=== PATIENT | male | born 1940 | race Caucasian/White ===

== ENCOUNTER 2018-05-05 10:42 | Inpatient (IN) | payer OTHER, SELFPAY ==
[2018-05-05] MEDS ORDERED: IPRATROPIUM BROM 0.5MG/2.5ML ONE (11:34)
[2018-05-05] MEDS ORDERED: Levofloxacin 750mg IV 750 MG/150 ML BAG IV ONE (11:34)
[2018-05-05] MEDS ORDERED: METHYLPREDNISOLONE 40 MG INJ ONE (11:34)
[2018-05-05] MEDS ORDERED: ALBUTEROL 2.5 MG/3 ML NEB SOL ONE (11:34)
[2018-05-05 11:37] LABS: Protime INR 0.99
[2018-05-05 11:39] LABS: Absolute Lymphocytes (CBC) 0.7 K/uL (0.7-4.9); Absolute Monocytes 1.7 K/uL (0.1-1.3); Absolute Neutrophil 11.1 K/uL (1.8-8.0); Basophils % 0.4 % (0-1.3); Eosinophils % 0.2 % (0-4.4); Hematocrit 44.6 % (39.6-49.0); MCH 32.3 pg (27.0-35.0); MCV 95.5 fL (80-100); MPV 9.1 fL (7.6-11.3); Monocytes % 12.3 % (3.3-12.3); RBC Red Blood Cell Count 4.67 M/uL (4.33-5.43)
[2018-05-05 11:49] LABS: ALT/SGPT 15 U/L (12-78); AST/SGOT 12 U/L (15-37); Albumin 3.5 g/dL (3.4-5.0); Alkaline Phosphatase 133 U/L (45-117); BUN Blood Urea Nitrogen 22 mg/dL (7-18); Bicarbonate 29 mmol/L (21-32); Bilirubin Direct 0.2 mg/dL (0-0.2); Bilirubin Total 0.8 mg/dL (0.2-1.0); Glucose Level 108 mg/dL (74-106); NT PRO-BNP 544 pg/mL (<450); Potassium 3.2 mmol/L (3.5-5.1); Protein, Total 7.6 g/dL (6.4-8.2); Sodium Level 140 mmol/L (136-145); Troponin (Emerg Dept Use Only) < 0.02 ng/mL (0.0-0.045)
--- NOTE | 2018-05-05 12:05 | RAD REPORT ---
EXAM DESCRIPTION: [place] Single View05/05/2018 11:36 am CLINICAL HISTORY: Chest pain COMPARISON: none FINDINGS: The lungs are markedly hyperaerated. A left lower lobe consolidation The heart is normal size IMPRESSION: Marked COPD Left lower lobe consolidation consistent with pneumonia. This be followed until it has cleared help e xclude a post obstructive process/underlying mass
--- NOTE | 2018-05-05 12:25 | ER ---
Nurse's Notes [facility] Name: Kalpesh Nolen Age: 78 yrs Sex: Male : 1940 Arrival Date: 05/05/2018 Time: 10:51 Bed 20 Private MD: Diagnosis: Pneumonia due to other specified infectious organisms Presentation: 05/05 10:52 Presenting complaint: Patient states: He woke up at 7:00 this morning with left sided aj1 chest pain that radiates to his neck. Reports SOB, palpitations. Denies dizziness. Reports a productive cough for the past month and a half since he quit smoking. Transition of care: patient was not received from another setting of care. Onset of symptoms was May 05, 2018 at 07:00. Risk Assessment: Do you want to hurt yourself or someone else? Patient reports no desire to harm self or others. Initial Sepsis Screen: Does the patient meet any 2 criteria? No. Patient's initial sepsis screen is negative. Does the patient have a suspected source of infection? No. Patient's initial sepsis screen is negative. Care prior to arrival: None. 10:52 Method Of Arrival: Wheelchair aj1 10:52 Acuity: BOB 2 aj1 Triage Assessment: 10:54 General: Appears in no apparent distress. uncomfortable, Behavior is calm, cooperative, aj1 appropriate for age. Pain: Complains of pain in chest Pain radiates to neck Pain currently is 8 out of 10 on a pain scale. Neuro: Level of Consciousness is awake, alert, obeys commands. Cardiovascular: Patient's skin is warm and dry. Respiratory: Airway is patent Respiratory effort is even, unlabored, Respiratory pattern is regular, symmetrical. Historical: - Allergies: 10:54 No Known Allergies; aj1 - Home Meds: 10:54 None [Active]; aj1 - PMHx: 10:54 None; aj1 - PSHx: 10:54 None; aj1 - Immunization history:: Flu vaccine is not up to date. - Social history:: Smoking status: Patient uses tobacco products, smokes one pack cigarettes per day. States that he quit smoking a month and a half ago, Smoking status: Patient uses alcohol, Patient/guardian denies using street drugs, IV drugs, The patient lives with family. - Ebola Screening: : Patient denies travel to an Ebola-affected area in the 21 days before illness onset. - Family history:: not pertinent. - Hospitalizations: : No recent hospitalization is reported. Screenin:30 Abuse screen: Denies threats or abuse. Nutritional screening: No deficits noted. em Tuberculosis screening: No symptoms or risk factors identified. Fall Risk None identified. Assessment: 11:15 General: Appears uncomfortable, Behavior is calm, cooperative, Denies fever. Pain: em Complains of pain in anterior aspect of left shoulder and chest Pain currently is 8 out of 10 on a pain scale. Quality of pain is described as radiating, sharp, Pain began 3 hours ago. Pain: Pain radiates to back. Neuro: Level of Consciousness is awake, alert, obeys commands, Oriented to person, place, time, situation, Moves all extremities. Gait is steady, Speech is normal, Facial symmetry appears normal, Pupils are PERRLA. Cardiovascular: Capillary refill < 3 seconds Patient's skin is warm and dry. Rhythm is sinus tachycardia Chest pain is located in left anterior. Respiratory: Reports shortness of breath cough that is productive, pain with respiration Airway is patent Respiratory effort is even, unlabored, Respiratory pattern is regular, tachypnea Breath sounds with wheezes in left posterior lower lobe and right posterior lower lobe the patient has mild shortness of breath. GI: Abdomen is flat. : No signs and/or symptoms were reported regarding the genitourinary system. EENT: Denies nasal congestion. Derm: Skin is intact, is thin, Skin is pink, warm \T\ dry. Musculoskeletal: Capillary refill < 3 seconds, Range of motion: intact in all extremities. 11:30 General: The previous assessment is accurate, call light remains within reach. . ss 12:35 Reassessment: Patient appears in no apparent distress at this time. Patient and/or em family updated on plan of care and expected duration. Pain level reassessed. Patient is alert, oriented x 3, equal unlabored respirations, skin warm/dry/pink. SPO2 94% RA, placed on 2 L via NC, SPO2 100%. 13:30 Reassessment: Patient appears in no apparent distress at this time. Patient and/or em family updated on plan of care and expected duration. Pain level reassessed. Patient is alert, oriented x 3, equal unlabored respirations, skin warm/dry/pink. rates pain 5/10 Patient states feeling better. Patient states symptoms have improved. 14:19 Reassessment: Patient appears in no apparent distress at this time. Patient and/or em family updated on plan of care and expected duration. Pain level reassessed. Patient is alert, oriented x 3, equal unlabored respirations, skin warm/dry/pink. pending room assignment Patient states feeling better. Patient states symptoms have improved. 15:20 Reassessment: Patient appears in no apparent distress at this time. Patient and/or em family updated on plan of care and expected duration. Pain level reassessed. Patient is alert, oriented x 3, equal unlabored respirations, skin warm/dry/pink. attempted to give report to floor nurse, currently unavailable to give report Patient states feeling better. 16:00 Reassessment: Patient appears in no apparent distress at this time. Patient and/or em family updated on plan of care and expected duration. Pain level reassessed. Patient is alert, oriented x 3, equal unlabored respirations, skin warm/dry/pink. 16:07 Reassessment: Patient appears in no apparent distress at this time. room still being em cleaned, nurse request 30 minutes to send pt up. Vital Signs: 10:54 BP 140 / 73; Pulse 56; Resp 18; Temp 97.9; Pulse Ox 95% on R/A; Weight 47.63 kg (R); aj1 Height 6 ft. 1 in. (185.42 cm) (R); Pain 8/10; 11:30 BP 166 / 80; Pulse 108; Resp 24; Pulse Ox 97% on R/A; Pain 8/10; em 12:30 BP 126 / 87; Pulse 102; Resp 22; Pulse Ox 94% on R/A; em 13:30 BP 148 / 67; Pulse 91; Resp 18; Pulse Ox 99% on 2 lpm NC; Pain 5/10; em 14:30 BP 169 / 79; Pulse 96; Resp 20; Pulse Ox 99% on 2 lpm NC; em 15:23 BP 152 / 69; Pulse 91; Resp 18; Temp 99.3(O); Pulse Ox 100% on 2 lpm NC; Pain 4/10; em 16:02 BP 154 / 62; Pulse 101; Resp 18; Pulse Ox 99% on R/A; Pain 4/10; em 10:54 Body Mass Index 13.85 (47.63 kg, 185.42 cm) aj1 ED Course: 10:51 Patient arrived in ED. aj1 10:53 Triage completed. aj1 10:54 Arm band placed on. aj1 10:55 Patient placed in an exam room. aj1 10:59 Oliver Lee LVN is Primary Nurse. em 11:00 Carmelo Allen MD is Attending Physician. ma2 11:12 EKG done, by surfacing technician. reviewed by Carmelo Allen MD. vh 11:30 Patient maintains SpO2 saturation greater than 95% on room air. em 11:35 X-ray completed. Portable x-ray completed in exam room. Patient tolerated procedure ls3 well. 11:36 XRAY Chest (1 view) In Process Unspecified. EDMS 11:45 Patient has correct armband on for positive identification. Placed in gown. Bed in low em position. Call light in reach. monitoring engineer on. Pulse ox on. NIBP on. 11:45 Inserted saline lock: 20 gauge in right forearm, using aseptic technique. Blood em collected. 11:45 Initial lab(s) drawn, by me, sent to lab. First set of blood cultures drawn by me. em 12:24 Kulwinder Smith MD is Hospitalizing Provider. ma2 16:34 No provider procedures requiring assistance completed. Patient admitted, IV remains in em place. Administered Medications: 11:30 Not Given (Physician Discretion): Albuterol - atroVENT (3:1) (2.5 mg - 0.5 mg) 3 ml em Nebulizer once 11:31 Drug: Albuterol 2.5 mg Route: Inhalation; em 12:28 Follow up: Response: No adverse reaction; Marked relief of symptoms em 11:31 Drug: AtroVENT Aerosol 0.5 mg Route: Inhalation; em 12:29 Follow up: Response: No adverse reaction; Marked relief of symptoms em 11:47 Drug: MethylPrednisoLONE 40 mg Route: IVP; Site: right forearm; ss 12:28 Follow up: Response: No adverse reaction em 11:48 Drug: LevaQUIN 750 mg Volume: 150 ml; Route: IVPB; Infused Over: 90 mins; Site: right em forearm; 14:43 Follow up: Response: No adverse reaction; IV Status: Completed infusion; IV Intake: em 250ml 13:10 Drug: NS 0.9% 1000 ml Route: IV; Rate: 1 bolus; Site: right forearm; em 14:43 Follow up: IV Status: Completed infusion; IV Intake: 1000ml em 13:11 Drug: morphine 4 mg Route: IVP; Site: right forearm; ss 14:43 Follow up: Response: No adverse reaction; Pain is decreased em Intake: 14:43 IV: 250ml; Total: 250ml. em 14:43 IV: 1000ml; Total: 1250ml. em Outcome: 12:24 Decision to Hospitalize by Provider. ma2 16:07 Admitted to Tele accompanied by tech, family with patient, via stretcher, room 225, em with oxygen, with chart, Report called to HEMANT Connor 16:07 Condition: good 16:07 Instructed on the need for admit, Demonstrated understanding of instructions. 16:39 Patient left the ED. em Signatures: Dispatcher [employer] EDClaribel Womack RN RN aj1 Oliver Lee, DIRECTOR OF GLOBAL SALES DIRECTOR OF GLOBAL SALES Paige Villeda RN RN Sil Ulloa Carmelo Allen MD MD ma2 Nj Valenzuela ls3 Corrections: (The following items were deleted from the chart) 15:31 15:23 BP 152 / 69; Pulse 91bpm; Resp 18bpm; Pulse Ox 100% RA; Temp 99.3F Oral; Pain em 4/10; em
--- NOTE | 2018-05-05 12:26 | EDPHYS ---
Physician Documentation [facility] Name: Kalpesh Nolen Age: 78 yrs Sex: Male : 1940 Arrival Date: 05/05/2018 Time: 10:51 Bed 20 Private MD: ED Physician Carmelo Allen HPI: 05/05 11:20 This 78 yrs old Male presents to ER via Wheelchair with complaints of Chest Pain. ma2 11:20 The patient or guardian reports chest pain that is located primarily in the substernal ma2 area. Onset: gradually, 1 day(s) ago. Associated signs and symptoms: Pertinent positives: headache, nausea, shortness of breath, Pertinent negatives: abdominal pain, cough, dizziness, lower extremity swelling, near syncope, recent travel, syncope, vomiting. Duration: The patient or guardian reports a single episode. Severity of pain: At its worst the pain was moderate. The patient has not experienced similar symptoms in the past. Historical: - Allergies: 10:54 No Known Allergies; aj1 - Home Meds: 10:54 None [Active]; aj1 - PMHx: 10:54 None; aj1 - PSHx: 10:54 None; aj1 - Immunization history:: Flu vaccine is not up to date. - Social history:: Smoking status: Patient uses tobacco products, smokes one pack cigarettes per day. States that he quit smoking a month and a half ago, Smoking status: Patient uses alcohol, Patient/guardian denies using street drugs, IV drugs, The patient lives with family. - Ebola Screening: : Patient denies travel to an Ebola-affected area in the 21 days before illness onset. - Family history:: not pertinent. - Hospitalizations: : No recent hospitalization is reported. ROS: 11:20 Constitutional: Negative for fever, chills, and weight loss, Respiratory: Negative for ma2 shortness of breath, cough, wheezing, and pleuritic chest pain, Abdomen/GI: Negative for abdominal pain, nausea, diarrhea, and constipation, Skin: Negative for injury, rash, and discoloration, Neuro: Negative for headache, weakness, numbness, tingling, and seizure, Psych: Negative for depression, anxiety, suicide ideation, homicidal ideation, and hallucinations, Allergy/Immunology: Negative for hives, rash, and allergies, Hematologic/Lymphatic: Negative for swollen nodes, abnormal bleeding, and unusual bruising. 11:20 Cardiovascular: Positive for chest pain. 11:20 All other systems are negative. ma2 Exam: 11:20 Constitutional: This is a well developed, well nourished patient who is awake, alert, ma2 and in no acute distress. Chest/axilla: Normal chest wall appearance and motion. Nontender with no deformity. No lesions are appreciated. Cardiovascular: Regular rate and rhythm with a normal S1 and S2. No gallops, murmurs, or rubs. Normal PMI, no JVD. No pulse deficits. Respiratory: Lungs have equal breath sounds bilaterally, clear to auscultation and percussion. No rales, rhonchi or wheezes noted. No increased work of breathing, no retractions or nasal flaring. Abdomen/GI: Soft, non-tender, with normal bowel sounds. No distension or tympany. No guarding or rebound. No evidence of tenderness throughout. MS/ Extremity: Pulses equal, no cyanosis. Neurovascular intact. Full, normal range of motion. Neuro: Awake and alert, GCS 15, oriented to person, place, time, and situation. Cranial nerves II-XII grossly intact. Motor strength 5/5 in all extremities. Sensory grossly intact. Cerebellar exam normal. Normal gait. 11:20 Cardiovascular: Rate: tachycardic, Rhythm: irregularly irregular. 11:20 Respiratory: mild respiratory distress is noted, Respirations: Breath sounds: wheezing: expiratory that is mild. Vital Signs: 10:54 BP 140 / 73; Pulse 56; Resp 18; Temp 97.9; Pulse Ox 95% on R/A; Weight 47.63 kg (R); aj1 Height 6 ft. 1 in. (185.42 cm) (R); Pain 8/10; 11:30 BP 166 / 80; Pulse 108; Resp 24; Pulse Ox 97% on R/A; Pain 8/10; em 12:30 BP 126 / 87; Pulse 102; Resp 22; Pulse Ox 94% on R/A; em 13:30 BP 148 / 67; Pulse 91; Resp 18; Pulse Ox 99% on 2 lpm NC; Pain 5/10; em 14:30 BP 169 / 79; Pulse 96; Resp 20; Pulse Ox 99% on 2 lpm NC; em 15:23 BP 152 / 69; Pulse 91; Resp 18; Temp 99.3(O); Pulse Ox 100% on 2 lpm NC; Pain 4/10; em 16:02 BP 154 / 62; Pulse 101; Resp 18; Pulse Ox 99% on R/A; Pain 4/10; em 10:54 Body Mass Index 13.85 (47.63 kg, 185.42 cm) aj1 MDM: 11:00 Patient medically screened. ma2 11:20 Differential diagnosis: abnormal EKG, acute pericarditis, coronary artery disease ma2 Cholelithiasis costochondritis, gastritis, gastroesophageal reflux disease (GERD), pneumonia. HEART Score: History: Highly Suspicious (2), ECG: Age: > or = 65 years (2). The patient was given aspirin in the Emergency Department. MARILU Risk Score: 1 - Three or more CAD risk factors. 12:21 Data reviewed: vital signs, nurses notes, EMS record, assisted records, diagnostic ma2 data from outside facility, lab test result(s), radiologic studies. 12:23 Counseling: I had a detailed discussion with the patient and/or guardian regarding: the ma2 historical points, exam findings, and any diagnostic results supporting the discharge/admit diagnosis, the presence of at least one elevated blood pressure reading (>120/80) during this emergency department visit, the need for further work-up and treatment in the hospital. Response to treatment: the patient's symptoms have markedly improved after treatment. ED course: has pneumonia on cxr, has SIRS with hr of 105 and elevated wbc, will treat as cap, discussed with dr. demarco.. 05/05 11:00 Order name: Basic Metabolic Panel; Complete Time: 12:19 [facility] 05/05 11:00 Order name: CBC with Diff; Complete Time: 12:19 [facility] 05/05 11:00 Order name: LFT's; Complete Time: 12:19 [facility] 05/05 11:00 Order name: Magnesium; Complete Time: 12:19 [facility] 05/05 11:00 Order name: NT PRO-BNP; Complete Time: 12:19 [facility] 05/05 11:00 Order name: PT-INR; Complete Time: 12:19 [facility] 05/05 11:00 Order name: Troponin (emerg Dept Use Only); Complete Time: 12:19 [facility] 05/05 11:00 Order name: XRAY Chest (1 view); Complete Time: 12:19 [facility] 05/05 11:19 Order name: Blood Culture Adult (2) or2 05/05 12:25 Order name: Blood Culture Adult (2) or2 05/05 11:00 Order name: EKG; Complete Time: 11:01 [facility] 05/05 11:00 Order name: Cardiac monitoring; Complete Time: 11:21 [facility] 05/05 11:00 Order name: EKG - Nurse/Tech; Complete Time: 11:21 [facility] 05/05 11:00 Order name: IV Saline Lock; Complete Time: 11:21 [facility] 05/05 11:00 Order name: Labs collected and sent; Complete Time: 11:21 [facility] 05/05 11:00 Order name: O2 Per Protocol; Complete Time: 11:20 [facility] 05/05 11:00 Order name: O2 Sat Monitoring; Complete Time: 11:20 [facility] 05/05 12:54 Order name: Oxygen; Complete Time: 13:27 [email or web address] Administered Medications: 11:30 Not Given (Physician Discretion): Albuterol - atroVENT (3:1) (2.5 mg - 0.5 mg) 3 ml em Nebulizer once 11:31 Drug: Albuterol 2.5 mg Route: Inhalation; em 12:28 Follow up: Response: No adverse reaction; Marked relief of symptoms em 11:31 Drug: AtroVENT Aerosol 0.5 mg Route: Inhalation; em 12:29 Follow up: Response: No adverse reaction; Marked relief of symptoms em 11:47 Drug: MethylPrednisoLONE 40 mg Route: IVP; Site: right forearm; ss 12:28 Follow up: Response: No adverse reaction em 11:48 Drug: LevaQUIN 750 mg Volume: 150 ml; Route: IVPB; Infused Over: 90 mins; Site: right em forearm; 14:43 Follow up: Response: No adverse reaction; IV Status: Completed infusion; IV Intake: em 250ml 13:10 Drug: NS 0.9% 1000 ml Route: IV; Rate: 1 bolus; Site: right forearm; em 14:43 Follow up: IV Status: Completed infusion; IV Intake: 1000ml em 13:11 Drug: morphine 4 mg Route: IVP; Site: right forearm; ss 14:43 Follow up: Response: No adverse reaction; Pain is decreased em Disposition: 05/05/18 12:24 Hospitalization ordered by Kulwinder Demarco for Inpatient Admission. Preliminary diagnosis is Pneumonia due to other specified infectious organisms. - Bed requested for Telemetry/MedSurg (Inpatient). - Status is Inpatient Admission. em - Condition is Stable. - Problem is new. - Symptoms are unchanged. UTI on Admission? No Signatures: Dispatcher [employer] EDClaribel Womack RN RN aj1 Hubert Silva PA PA carmelom Oliver Lee, SUPERVISOR WOOL SHEARING SUPERVISOR WOOL SHEARING [facility] CenterPaige RN RN Carmelo Allen MD MD ma2 Janelle Shi Corrections: (The following items were deleted from the chart) 14:26 12:24 Hospitalization Ordered by Kulwinder Demarco MD for Inpatient Admission. Preliminary gm diagnosis is Pneumonia due to other specified infectious organisms. Bed requested for Telemetry/MedSurg (Inpatient). Status is Inpatient Admission. Condition is Stable. Problem is new. Symptoms are unchanged. UTI on Admission? No. ma2 16:39 14:26 05/05/2018 12:24 Hospitalization Ordered by Kulwinder Demarco MD for Inpatient em Admission. Preliminary diagnosis is Pneumonia due to other specified infectious organisms. Bed requested for Telemetry/MedSurg (Inpatient). Status is Inpatient Admission. Condition is Stable. Problem is new. Symptoms are unchanged. UTI on Admission? No. gm
--- NOTE | 2018-05-05 12:57 | EKG ---
Test Date: 2018-05-05 Test Time: 11:05:10 Weight Count Operator: JD MEASUREMENT RESULTS: Intervals: Rate: 106 CA: 132 QRSD: 84 QT: 354 QTc: 470 Colt: P: 92 CA: 132 QRS: -9 T: 75 INTERPRETIVE STATEMENTS: Sinus tachycardia with premature atrial complexes Otherwise normal ECG No previous ECG available for comparison Electronically Signed On 05-05-18 12:57:18 [employer]TER by Jamie Esteves
[2018-05-05] MEDS ORDERED: ONDANSETRON 4 MG/2 ML VIAL IV PRN (13:08)
[2018-05-05] MEDS ORDERED: ALBUTEROL 2.5 MG/3 ML NEB SOL NEB PRN (13:08)
[2018-05-05] MEDS ORDERED: ACETAMINOPHEN 500 MG TAB PO PRN (13:08)
[2018-05-05] MEDS ORDERED: NA CHLORIDE 0.9% 1,000 ML ONE (13:12)
[2018-05-05] MEDS ORDERED: MORPHINE 4 MG/ML SYR ONE (13:12)
[2018-05-05] MEDS: NA CHLORIDE 0.9% 1,000 ML IV SCH ×2 (17:46→20:47)
[2018-05-05 17:56] VITALS: BMI 14.3
[2018-05-05] MEDS ORDERED: POTASSIUM 25 MEQ EFFERV TAB PO ONE (18:00)
[2018-05-05] MEDS: ENOXAPARIN 40 MG/0.4 ML SQ SCH (18:32)
[2018-05-05] MEDS: CEFTRIAXONE/SWI 1gm 1 GM/10 ML SYR IV SCH (20:48)
[2018-05-05] MEDS ORDERED: INFLUENZA VACCINE (for 3y+) 0.5 ML DOSE IMVAC ONE (21:00)
[2018-05-05] MEDS ORDERED: PNEUMOCOCCAL VACCINE 0.5 ML IMVAC ONE (21:00)
--- NOTE | 2018-05-06 05:05 | P.HP ---
Certification for Inpatient Patient admitted to: Inpatient With expected LOS: >2 Midnights Practitioner: I am a practitioner with admitting privileges, knowledge of patient current condition, hospital course, and medical plan of care. Services: Services provided to patient in accordance with Admission requirements found in Title 42 Section 412.3 of the Code of Federal Regulations Patient History Date of Service: 05/05/18 Reason for admission: Pneumonia History of Present Illness: Mr Nolen is a 78-year-old male with no history of smoking, who quit about 2 weeks ago. Since so, he has had productive cough with thick creamy secretions. This morning, the patient woke up about 7 o'clock with left-sided chest pain, stabbing, radiating to the neck, intensity 7/10, associated with shortness of breath and palpitations. He denied fever or chills. In ER the patient was afebrile, O2 sat 95% on room. Lab work remarkable for leukocytosis, hypokalemia. Chest-x-ray consistent with left lower lobe pneumonia. Allergies No Known Allergies Allergy (Verified 05/05/18 17:36) Home Medications: Acetaminophen [Tylenol Extra Strength] 1 tab PO PRN PRN 05/05/18 - Past Medical/Surgical History Has patient received pneumonia vaccine in the past: No Diabetic: No -: COPD Past Surgical History: Reviewed- Non-Contributory - Family History Mother -: Heart disease, Cancer Father -: Heart disease, Cancer - Social History Smoking Status: Former smoker Alcohol use: No CD- Drugs: No Caffeine use: Yes Place of Residence: Home Review of Systems 10-point ROS is otherwise unremarkable Physical Examination - Vital Signs Temperature: 97.1 F Blood Pressure: 125/66 Pulse: 71 Respirations: 16 Pulse Ox (%): 16 - Physical Exam General: Alert, In no apparent distress HEENT: Atraumatic, PERRLA, Mucous membr. moist/pink, EOMI, Sclerae nonicteric Neck: Supple, 2+ carotid pulse no bruit, No LAD, Without JVD or thyroid abnormality Respiratory: Diminished, Crackles/rales (Left base crackles) Cardiovascular: Regular rate/rhythm, Normal S1 S2 Gastrointestinal: Normal bowel sounds, No tenderness Musculoskeletal: No tenderness Integumentary: No rashes Neurological: Normal speech, Normal strength at 5/5 x4 extr, Normal tone, Normal affect Lymphatics: No axilla or inguinal lymphadenopathy - Studies Laboratory Data (last 24 hrs) 05/05/18 11:10: PT 11.7, INR 0.99 05/05/18 11:10: WBC 13.5 H, Hgb 15.1, Hct 44.6, Plt Count 171 05/05/18 11:10: Sodium 140, Potassium 3.2 L, BUN 22 H, Creatinine 0.90, Glucose 108 H, Magnesium 2.0, Total Bilirubin 0.8, AST 12 L, ALT 15, Alkaline Phosphatase 133 H Assessment and Plan - Problems (Diagnosis) (1) COPD exacerbation Current Visit: Yes Status: Acute (2) Pneumonia Current Visit: Yes Status: Acute Qualifiers: Pneumonia type: due to unspecified organism Laterality: left Lung location: lower lobe of lung Qualified Code(s): J18.1 - Lobar pneumonia, unspecified organism (3) Hypokalemia Current Visit: Yes Status: Acute - Plan The patient will be admitted to the hospital due to COPD exacerbation secondary to left lower lobe pneumonia. Continue empiric treatment with Rocephin and azithromycin, IV fluids, breathing treatment and IV steroids. Consult analytical chemist for evaluation recommendation. - Advance Directives Does patient have a Living Will: No Does patient have a Durable POA for Healthcare: No - Code Status/Comfort Care Code Status Assessed: Yes Code Status: Full Code
[2018-05-06 05:45] LABS: Absolute Monocytes 1.7 K/uL (0.1-1.3); Absolute Neutrophil 8.3 K/uL (1.8-8.0); Basophils % 0.2 % (0-1.3); Eosinophils % 0.1 % (0-4.4); Hematocrit 39.9 % (39.6-49.0); Lymphocytes % 9.2 % (15.3-44.8); MCH 32.2 pg (27.0-35.0); MCV 96.6 fL (80-100); MPV 8.8 fL (7.6-11.3); Monocytes % 15.1 % (3.3-12.3); RBC Red Blood Cell Count 4.13 M/uL (4.33-5.43)
[2018-05-06 05:59] LABS: ALT/SGPT 13 U/L (12-78); AST/SGOT 10 U/L (15-37); Albumin 2.9 g/dL (3.4-5.0); Alkaline Phosphatase 105 U/L (45-117); BUN Blood Urea Nitrogen 21 mg/dL (7-18); Bicarbonate 32 mmol/L (21-32); Bilirubin Total 0.5 mg/dL (0.2-1.0); Glucose Level 113 mg/dL (74-106); Potassium 4.1 mmol/L (3.5-5.1); Protein, Total 6.4 g/dL (6.4-8.2); Sodium Level 143 mmol/L (136-145)
[2018-05-06 06:19] LABS: Urine Appearance CLEAR; Urine Blood NEGATIVE (NEG); Urine Color DK YELLOW; Urine Glucose NEGATIVE (NEG); Urine Protein 1+ (NEG); Urine Specific Gravity >=1.030 (1.005-1.030); Urine pH 5.5 (5.0-7.0)
[2018-05-06 06:26] LABS: Blood Morphology Comment NOT SEEN (NOT SEEN); Platelet Estimate ADEQ
[2018-05-06 06:26] LABS: Urine Microscopic Reflex ORDER UMIC
[2018-05-06 06:32] LABS: Urine Bilirubin NEGATIVE (NEG)
[2018-05-06 06:48] LABS: Urine Bacteria <20 /HPF (NONE SEEN); Urine Culture Reflex Order NOT NEEDED; Urine RBC <5 /HPF (NONE SEEN)
[2018-05-06 06:49] LABS: Urine Mucus 2+ /HPF (NONE SEEN)
[2018-05-06] MEDS: AZITHROMYCIN IV 500 MG in NA CHLORIDE 0.9% 250 ML IVPB SCH (09:29)
[2018-05-06] MEDS: METHYLPREDNISOLONE 40 MG INJ IV SCH ×2 (09:38→16:27)
[2018-05-06] MEDS ORDERED: IBUPROFEN 400 MG TAB PO PRN (09:41)
[2018-05-06] MEDS: CEFTRIAXONE/SWI 1gm 1 GM/10 ML SYR IV SCH ×2 (10:41→21:23)
[2018-05-06] MEDS: ENOXAPARIN 40 MG/0.4 ML SQ SCH (16:26)
[2018-05-06] MEDS: NA CHLORIDE 0.9% 1,000 ML IV SCH ×2 (16:28→21:22)
[2018-05-06] MEDS ORDERED: GUAIFENESIN/CODEINE 5ML UCUP PO PRN (17:22)
[2018-05-06] MEDS ORDERED: BENZONATATE 100 MG CAP PO PRN (17:22)
--- NOTE | 2018-05-06 17:24 | PN ---
Date of Progress Note: 05/06/2018 History: The patient seen and examined. Chart reviewed, and case discussed with RN. The patient st ates his breathing is better, however still requiring supplemental oxygen. The patient continued to have cough and congestion, bringing up significant amount of sputum. Review of Systems: Negative except as above. Medications: List reviewed. Physical Examination: Vital Signs: Temperature 97.9, heart rate 71, blood pressure 137/63, respirations 18, O2 100% on 2 L via nasal cannula. General: Awake, alert, oriented x3. Some mild distress. Ill-appearing elderly male, appears older than stated age. Cachectic. BMI is 14.3, frail. CV: S1, S2. Peripheral pulses are present. Respiratory: Diminished breath sounds at the bases. Gastrointestinal: Abdomen is soft, nontender, nondistended. Positive bowel sounds. Extremities: No clubbing, cyanosis, or edema. Neurologic: Nonfocal. Laboratory Data: Sodium 143, potassium 4.1, chloride 106, CO2 32, BUN 21, creatinine 0.8, glucose 11 3, calcium 8.5, albumin 2.9. WBC 11, H and H 13.3, 39.9, platelets 170, neutrophils 75%, 6% bands. Influenza screen is negative. Blood cultures are pending. Sputum culture is pending. Assessment And Plan: A 78-year-old male with: 1.Left lower lobe pneumonia. Continue IV antibiotics and follow up with cultures. Negative to date . The patient is still having significant amount of cough and sputum production. The patient is on s upplemental oxygen. We will consult Pulmonology. 2.Acute chronic obstructive pulmonary disease exacerbation. Continue breathing treatments and stero ids. The patient is still requiring supplemental oxygen. We will try to wean off as tolerated. The patient is not on home oxygen. 3.Hypokalemia, replaced. We will monitor. 4.Moderate protein-calorie malnutrition. The patient has a BMI of 14.3. Appears cachectic. We kyara l have dietary consultation, protein supplementation. 5.Gastrointestinal and deep venous thrombosis prophylaxis addressed. 6.History of tobacco abuse, quit 2 weeks ago. 7.Chronic chest pain, likely related to pneumonia, NSAIDs as needed. Plan: Continue monitoring for clinical improvement. Likely discharge in next 24-48 hours. /LAURA Voice ID: [id number] Report ID: [id number]
--- NOTE | 2018-05-06 17:42 | P.PN ---
Date of Service: 05/06/18 Called by nurse regarding patients change in cardiorespiratory status. Patient had sudden onset of coughing spell and became dyspenic. His HR became elevated and jumped into the 200s. EKG showed Afib w RVR. breathing treatment switched to xopenex, check magnesium , TSH. Switch to lovenox 1mg/kg q12hr and use lopressor for rate control. Cardiology consultation. ABG showed some hypoxemia. Placed back on O2. Continuous pulse oximetry. Cough suppressants. Keep as inpt.
[2018-05-06 17:43] LABS: Arterial Blood Carboxyhemoglob 1.4 % (0-1.5); Blood Gas Oxyhemoglobin 92.7 % (94-97); Blood O2 Saturation 94.6 % (92-98.5)
[2018-05-06] MEDS: METOPROLOL TARTRATE 5 MG/5 ML INJ IV PRN (17:50)
[2018-05-06] MEDS: LEVALBUTEROL 1.25 MG/3 ML NEB NEB SCH (20:00)
[2018-05-06] MEDS: IPRATROPIUM BROM 0.5MG/2.5ML NEB SCH (20:00)
[2018-05-06] MEDS: ENOXAPARIN 60 MG/0.6 ML SQ SCH (21:22)
[2018-05-07] MEDS: METHYLPREDNISOLONE 40 MG INJ IV SCH ×2 (00:38→09:11)
[2018-05-07] MEDS: LEVALBUTEROL 1.25 MG/3 ML NEB NEB SCH ×4 (01:10→21:03)
[2018-05-07] MEDS: IPRATROPIUM BROM 0.5MG/2.5ML NEB SCH ×4 (01:10→21:03)
[2018-05-07] MEDS: METOPROLOL TARTRATE 5 MG/5 ML INJ IV PRN (02:10)
[2018-05-07 04:36] LABS: Absolute Lymphocytes (CBC) 0.3 K/uL (0.7-4.9); Absolute Monocytes 0.7 K/uL (0.1-1.3); Absolute Neutrophil 8.9 K/uL (1.8-8.0); Hematocrit 37.7 % (39.6-49.0); Lymphocytes % 3.3 % (15.3-44.8); MCH 32.5 pg (27.0-35.0); MCV 98.3 fL (80-100); MPV 8.9 fL (7.6-11.3); Monocytes % 6.8 % (3.3-12.3); RBC Red Blood Cell Count 3.84 M/uL (4.33-5.43)
[2018-05-07 04:53] LABS: ALT/SGPT 14 U/L (12-78); AST/SGOT 10 U/L (15-37); Albumin 2.6 g/dL (3.4-5.0); Alkaline Phosphatase 90 U/L (45-117); BUN Blood Urea Nitrogen 27 mg/dL (7-18); Bicarbonate 31 mmol/L (21-32); Bilirubin Total 0.2 mg/dL (0.2-1.0); Glucose Level 114 mg/dL (74-106); Magnesium 2.3 mg/dL (1.8-2.4); Potassium 4.3 mmol/L (3.5-5.1); Protein, Total 5.9 g/dL (6.4-8.2); Sodium Level 149 mmol/L (136-145); Thyroid Stimulating Hormone 0.184 uIU/mL (0.360-3.740)
[2018-05-07] MEDS: CEFTRIAXONE/SWI 1gm 1 GM/10 ML SYR IV SCH (09:10)
[2018-05-07] MEDS: ENOXAPARIN 60 MG/0.6 ML SQ SCH ×2 (09:10→20:30)
[2018-05-07] MEDS: AZITHROMYCIN IV 500 MG in NA CHLORIDE 0.9% 250 ML IVPB SCH (09:42)
[2018-05-07] MEDS: ARFORMOTEROL TARTRATE 15 MCG/2 ML VIAL.NEB NEB SCH ×2 (10:45→21:03)
--- NOTE | 2018-05-07 11:06 | P.CNS ---
Date of Consult: 05/07/18 Chief Complaint: Left-sided chest pain shortness of breath History of Present Illness: Patient is 78 years of age he prides himself not visiting any doctors for the past 50 years patient quit smoking about a month ago admitted with a very localized left-sided chest pain radiating to his collar which is now resolved no prior history of cardiopulmonary problems he does have dyspnea on exertion for the past year or so associated with lower extremity edema no other medical history does not take any medications at home uses nonsteroidals p.r.n. Allergies No Known Allergies Allergy (Verified 05/05/18 17:36) Home Medications: Acetaminophen [Tylenol Extra Strength] 1 tab PO PRN PRN 05/05/18 - Past Medical/Surgical History Diabetic: No -: COPD - Family History Mother Medical History: Heart disease, Cancer Father Medical History: Heart disease, Cancer - Social History Smoking Status: Current every day smoker Alcohol use: No CD- Drugs: No Caffeine use: Yes Place of Residence: Home Review of Systems 10-point ROS is otherwise unremarkable Physical Examination Temp Pulse Resp BP Pulse Ox 97.8 F 72 18 121/59 L 94 05/07/18 08:00 05/07/18 08:00 05/07/18 08:00 05/07/18 08:00 05/07/18 08:00 General: Alert, Oriented x3 HEENT: Atraumatic Neck: Supple Respiratory: Clear to auscultation bilaterally, Diminished, Friction rub Cardiovascular: Regular rate/rhythm, Normal S1 S2 Gastrointestinal: Normal bowel sounds, Soft and benign - Problems (1) COPD exacerbation Current Visit: Yes Status: Acute Plan: Patient is 78 years of age former heavy smoker for 50 years quit about a month ago admitted with in left-sided atypical chest pain which is now resolved no prior history of cardiopulmonary problems on x-ray he is very hyperinflated lung zaidi most likely has underlying severe COPD with cor pulmonale patient was hypoxic hypercapnic mildly elevated white count patient has no fever minimal inflammatory changes at the left base room-air sats a satisfactory spinning frame changer to p.o. antibiotic patient does not qualify for home O2 change to p.o. levofloxacin and prednisone discharged home a tomorrow on levofloxacin for about 7 days low-dose prednisone 10 twice a day and he will need an bronchodilator consider Advair 251 puff twice a day for now follow up with me as an outpatient with outpatient pulmonary function testing patient's troponins are negative EKG on admission normal sinus to the (2) Atrial fibrillation Current Visit: Yes Status: Acute Plan: Patient has developed AFib he had a cardiac evaluation including an echo possibly a stress test he is high risk for coronary artery disease is currently back in sinus rhythm most likely transient AFib Qualifiers: Atrial fibrillation type: unspecified Qualified Code(s): I48.91 - Unspecified atrial fibrillation
[2018-05-07] MEDS ORDERED: IPRATROPIUM BROM 0.5MG/2.5ML NEB SCH (14:00)
--- NOTE | 2018-05-07 14:38 | P.PN ---
Subjective Date of Service: 05/07/18 Chief Complaint: Left-sided chest pain shortness of breath Subjective: Improving (Patient seen and examined. Chart reviewed and case discussed w RN and Dr. Pedro. Back in sinus rhytm.) Review of Systems 10-point ROS is otherwise unremarkable Respiratory: Shortness of Breath, As per HPI Physical Examination - Vital Signs Temperature: 98.5 F Blood Pressure: 105/51 Pulse: 84 Respirations: 18 Pulse Ox (%): 94 - Physical Exam General: Alert, In no apparent distress, Oriented x3, Other (cacechtic, elderly , ) HEENT: Atraumatic, PERRLA, EOMI Neck: Supple, JVD not distended Respiratory: Diminished, Expiratory wheezes Cardiovascular: No edema, Normal pulses, Regular rate/rhythm, Normal S1 S2 Gastrointestinal: Normal bowel sounds, Soft and benign, Non-distended, No tenderness Musculoskeletal: No clubbing, No tenderness Integumentary: No rashes, No erythema Neurological: Normal speech, Normal strength at 5/5 x4 extr, Normal tone, Normal affect - Studies Laboratory Last Values WBC 9.9 K/uL (4.3-10.9) 05/07/18 04:14 RBC 3.84 M/uL (4.33-5.43) L 05/07/18 04:14 Hgb 12.5 g/dL (13.6-17.9) L 05/07/18 04:14 Hct 37.7 % (39.6-49.0) L 05/07/18 04:14 MCV 98.3 fL (80-100) 05/07/18 04:14 MCH 32.5 pg (27.0-35.0) 05/07/18 04:14 MCHC 33.1 g/dL (32.0-36.0) 05/07/18 04:14 RDW 14.7 % (12.1-15.2) 05/07/18 04:14 Plt Count 176 K/uL (152-406) 05/07/18 04:14 MPV 8.9 fL (7.6-11.3) 05/07/18 04:14 Neutrophils % 89.9 % (41.7-73.7) H 05/07/18 04:14 Lymphocytes % 3.3 % (15.3-44.8) L 05/07/18 04:14 Monocytes % 6.8 % (3.3-12.3) 05/07/18 04:14 Eosinophils % 0.0 % (0-4.4) 05/07/18 04:14 Basophils % 0.0 % (0-1.3) 05/07/18 04:14 Absolute Neutrophils 8.9 K/uL (1.8-8.0) H 05/07/18 04:14 Segmented Neutrophils 71 % (40-80) 05/06/18 05:11 Band Neutrophils 6 % (0-1) H 05/06/18 05:11 Absolute Lymphocytes 0.3 K/uL (0.7-4.9) L 05/07/18 04:14 Lymphocytes 11 % (15-42) L 05/06/18 05:11 Monocytes 12 % (0-10) H 05/06/18 05:11 Absolute Monocytes 0.7 K/uL (0.1-1.3) 05/07/18 04:14 Absolute Eosinophils 0.0 K/uL (0-0.5) 05/07/18 04:14 Absolute Basophils 0.0 K/uL (0-0.5) 05/07/18 04:14 Morphology Comment Not seen (NOT SEEN) 05/06/18 05:11 PT 11.7 SECONDS (9.5-12.5) 05/05/18 11:10 INR 0.99 05/05/18 11:10 pH 7.39 (7.35-7.45) 05/06/18 17:32 pCO2 49.2 mmHG (35-45) H 05/06/18 17:32 pO2 68.2 mmHG (75-100) L 05/06/18 17:32 HCO3 29.4 mmol/L (22-28) H 05/06/18 17:32 Base Excess 4.7 mmol/L 05/06/18 17:32 Oxyhemoglobin 92.7 % (94-97) L 05/06/18 17:32 ABG O2 Sat (Measured) 94.6 % (92-98.5) 05/06/18 17:32 ABG Carboxyhemoglobin 1.4 % (0-1.5) 05/06/18 17:32 ABG Methemoglobin 0.6 % (0-1.5) 05/06/18 17:32 Other Total Hgb 13.5 g/dl (12-18) 05/06/18 17:32 Inspired O2 21.0 % 05/06/18 17:32 Sodium 149 mmol/L (136-145) H 05/07/18 04:14 Potassium 4.3 mmol/L (3.5-5.1) 05/07/18 04:14 Chloride 113 mmol/L (98-107) H 05/07/18 04:14 Carbon Dioxide 31 mmol/L (21-32) 05/07/18 04:14 BUN 27 mg/dL (7-18) H 05/07/18 04:14 Creatinine 0.80 mg/dL (0.55-1.3) 05/07/18 04:14 Estimated GFR > 90 mL/min (=/>90) 05/07/18 04:14 Glucose 114 mg/dL (74-106) H 05/07/18 04:14 Calcium 8.2 mg/dL (8.5-10.1) L 05/07/18 04:14 Magnesium 2.3 mg/dL (1.8-2.4) 05/07/18 04:14 Total Bilirubin 0.2 mg/dL (0.2-1.0) 05/07/18 04:14 Direct Bilirubin 0.2 mg/dL (0-0.2) 05/05/18 11:10 AST 10 U/L (15-37) L 05/07/18 04:14 ALT 14 U/L (12-78) 05/07/18 04:14 Alkaline Phosphatase 90 U/L (45-117) 05/07/18 04:14 Rapid Troponin I < 0.02 ng/mL (0.0-0.045) 05/05/18 11:10 NT-Pro-B Natriuret Pep 544 pg/mL (<450) H 05/05/18 11:10 Serum Total Protein 5.9 g/dL (6.4-8.2) L 05/07/18 04:14 Albumin 2.6 g/dL (3.4-5.0) L 05/07/18 04:14 Globulin 3.3 g/dL (2.3-3.5) 05/07/18 04:14 Albumin/Globulin Ratio 0.8 (1.1-1.8) L 05/07/18 04:14 TSH 0.184 uIU/mL (0.360-3.740) L 05/07/18 04:14 Urine Color Dk yellow 05/06/18 05:52 Urine Appearance Clear 05/06/18 05:52 Urine pH 5.5 (5.0-7.0) 05/06/18 05:52 Ur Specific [place] >=1.030 (1.005-1.030) 05/06/18 05:52 Urine Ketones Negative (NEG) 05/06/18 05:52 Urine Blood Negative (NEG) 05/06/18 05:52 Urine Nitrite Negative (NEG) 05/06/18 05:52 Urine Bilirubin Negative (NEG) 05/06/18 05:52 Urine Urobilinogen 1.0 mg/dL (0.2-1.0) 05/06/18 05:52 Ur Leukocyte Esterase Negative (NEG) 05/06/18 05:52 Urine RBC <5 /HPF (NONE SEEN) 05/06/18 05:52 Urine WBC <5 /HPF (<5) 05/06/18 05:52 Ur Squamous Epith Cells <5 /HPF (NONE SEEN) 05/06/18 05:52 Urine Bacteria <20 /HPF (NONE SEEN) 05/06/18 05:52 Urine Mucus 2+ /HPF (NONE SEEN) 05/06/18 05:52 Urine Culture Reflexed Not needed 05/06/18 05:52 Urine Glucose Negative (NEG) 05/06/18 05:52 Urine Total Protein 1+ (NEG) H 05/06/18 05:52 Medications List Reviewed: Yes Assessment And Plan - Current Problems (Diagnosis) (1) Pneumonia Current Visit: Yes Status: Acute Qualifiers: Pneumonia type: due to unspecified organism Laterality: left Lung location: lower lobe of lung Qualified Code(s): J18.1 - Lobar pneumonia, unspecified organism (2) Atrial fibrillation Current Visit: Yes Status: Acute Qualifiers: Atrial fibrillation type: paroxysmal Qualified Code(s): I48.0 - Paroxysmal atrial fibrillation (3) COPD exacerbation Current Visit: Yes Status: Acute (4) Hypokalemia Current Visit: Yes Status: Acute (5) Failure to thrive Current Visit: Yes Status: Acute Qualifiers: Failure to thrive age range: in adult Qualified Code(s): R62.7 - Adult failure to thrive - Plan Cont nebs, steroids Appreciate Dr. Zuleta input Patient back in sinus rhythm. Treatment plan updated. DC in am Discharge Plan: Home Plan to discharge in: 24 Hours - Code Status/Comfort Care Code Status Assessed: Yes
--- NOTE | 2018-05-07 16:25 | CON ---
Reason For Consult: AFib. History Of Present Illness: Mr. Nolen is a gentleman, who developed signs and symptoms of pneumonia. He has been in our hospital since the . He has a left lower lobe pneumonia. The radiologist have cautioned that there could be a mass and recommended followup until total clearance of the pneumonia to make sure it is not a postobstructive pneumonia. The patient has been in normal sinus rhythm, and last night, went into atrial fib for perhaps an hour or so. The patient did not seem to be bothered too much, although his heart rate went as high as 153 at one point. He is in normal rhythm today. The patient has no history of heart disease. He is proud of the fact he does not take any medications and has not been hospitalized ever. While in the hospital , he has received arformoterol, Tessalon Perles, Lovenox 50 every 12 hours, guaifenesin with codeine, ipratropium, Xopenex, levofloxacin, metoprolol, saline , Zofran, and prednisone. He was not taking any prescription medicines as an outpatient. He was a cigarette smoker, but quit fairly recently. Never had a diagnosis of diabetes, hypertension, heart disease, vascular disease, or AFib in the past. Physical Examination: General: He is 6 feet and 1 inch, 108 pounds, almost to the point of emaciation. HEENT: Unremarkable. Lungs: Reveal no normal breath sounds. All the breath sounds are purely bronchial. There is some wheezing, more on the left than the right. HEENT: Unremarkable. Heart: Regular rate and rhythm. The only evidence we have of AFib is on rhythm strips. There is no 12-lead EKG showing it. Impression: The patient should stay on chronic anticoagulation. For now, enoxaparin will do. He should probably be on long-term anticoagulation with Eliquis or Xarelto at the time of discharge. Because he only had atrial fibrillation while he was getting albuterol breathing treatment, we could just see if he has any more atrial fibrillation before actually starting an antiarrhythmic drug. I think any of the beta blockers be likely to upset his chronic obstructive pulmonary disease, so I would not want to take that particular direction. If his atrial fibrillation is recurrent, I would probably give him Multaq 400 mg twice a day and that is a drug that can easily be started as an outpatient. I would not recommend treatment with Rythmol or flecainide or Betapace. Thank you very much for your kind referral of Mr. Nolen. I will follow him with you. ZAIN Voice ID: [id number] Report ID: [id number] PETTY
[2018-05-07] MEDS: METOPROLOL TAR 25 MG TAB PO SCH (17:45)
[2018-05-07] MEDS: predniSONE 20 MG TAB PO SCH (20:30)
[2018-05-08] MEDS: IPRATROPIUM BROM 0.5MG/2.5ML NEB SCH ×2 (01:49→08:00)
[2018-05-08] MEDS: LEVALBUTEROL 1.25 MG/3 ML NEB NEB SCH ×2 (01:49→08:00)
[2018-05-08] MEDS: METOPROLOL TAR 25 MG TAB PO SCH (05:45)
[2018-05-08 06:36] LABS: Absolute Lymphocytes (CBC) 0.8 K/uL (0.7-4.9); Absolute Monocytes 0.9 K/uL (0.1-1.3); Basophils % 0.1 % (0-1.3); Hematocrit 35.2 % (39.6-49.0); MCH 31.9 pg (27.0-35.0); MPV 8.8 fL (7.6-11.3); Monocytes % 7.4 % (3.3-12.3); RBC Red Blood Cell Count 3.63 M/uL (4.33-5.43)
[2018-05-08 06:41] LABS: ALT/SGPT 14 U/L (12-78); AST/SGOT 10 U/L (15-37); Albumin 2.5 g/dL (3.4-5.0); Alkaline Phosphatase 79 U/L (45-117); BUN Blood Urea Nitrogen 23 mg/dL (7-18); Bicarbonate 30 mmol/L (21-32); Bilirubin Total 0.3 mg/dL (0.2-1.0); Glucose Level 99 mg/dL (74-106); Protein, Total 5.4 g/dL (6.4-8.2); Sodium Level 150 mmol/L (136-145)
[2018-05-08] MEDS: ARFORMOTEROL TARTRATE 15 MCG/2 ML VIAL.NEB NEB SCH (08:00)
[2018-05-08 08:07] LABS: Blood Morphology Comment NOT SEEN (NOT SEEN); Platelet Estimate ADEQ; Urine White Blood Cell Casts OK
[2018-05-08 08:12] VITALS: O2SAT 93
--- NOTE | 2018-05-08 08:30 | EKG ---
Test Date: 2018-05-07 Test Time: 07:55:05 Tacking Stitch Remover: SHER MEASUREMENT RESULTS: Intervals: Rate: 69 FL: 102 QRSD: 82 QT: 376 QTc: 402 [place]: P: 81 FL: 102 QRS: -29 T: 62 INTERPRETIVE STATEMENTS: Sinus rhythm with short FL Low voltage QRS Borderline ECG Compared to ECG 05/06/2018 17:20:58 Short FL interval now present Low QRS voltage now present Atrial fibrillation no longer present Ventricular premature complex(es) no longer present Right-axis deviation no longer present Electronically Signed On 05-08-18 08:30:20 STEEL DIE PRESS SET UP OPERATOR by Jamie Esteves
--- NOTE | 2018-05-08 08:30 | EKG ---
Test Date: 2018-05-06 Test Time: 17:20:58 Rolled Glass Crosscutter: LEILA MEASUREMENT RESULTS: Intervals: Rate: 142 PA: QRSD: 84 QT: 308 QTc: 473 [place]: P: PA: QRS: 107 T: 42 INTERPRETIVE STATEMENTS: Atrial fibrillation with rapid ventricular response with premature ventricular or aberrantly conducted complexes Rightward axis RSR' or QR pattern in V1 suggests right ventricular conduction delay Abnormal ECG Compared to ECG 05/05/2018 11:05:10 Ventricular premature complex(es) now present Right-axis deviation now present RSR' in V1 or V2 now present Sinus tachycardia no longer present Atrial premature complex(es) no longer present Electronically Signed On 05-08-18 08:30:28 MINE ANALYST by Jamie Esteves
[2018-05-08] MEDS ORDERED: levoFLOXacin 500 MG TAB PO SCH (09:00)
[2018-05-08] MEDS: predniSONE 20 MG TAB PO SCH (09:45)
[2018-05-08] MEDS: ENOXAPARIN 60 MG/0.6 ML SQ SCH (09:45)
[2018-05-08 10:26] VITALS: BP 147/70; TEMP 97.9
--- NOTE | 2018-05-08 13:32 | P.DS ---
Admission Date: 05/07/18 Discharge Date: 05/08/18 Disposition: ROUTINE DISCHARGE Discharge Condition: GOOD Reason for Admission: Left-sided chest pain shortness of breath Consultations: Cardiology, Dr. Esteves Pulmonology Dr. Pedro Brief History of Present Illness: Mr Nolen is a 78-year-old male with no history of smoking, who quit about 2 weeks ago. Since so, he has had productive cough with thick creamy secretions. This morning, the patient woke up about 7 o'clock with left-sided chest pain, stabbing, radiating to the neck, intensity 7/10, associated with shortness of breath and palpitations. He denied fever or chills. In ER the patient was afebrile, O2 sat 95% on room. Lab work remarkable for leukocytosis, hypokalemia. Chest-x-ray consistent with left lower lobe pneumonia. Hospital Course: Patient was admitted to the hospital for left lower lobe pneumonia and subsequent COPD exacerbation. He was treated with nebulizer treatments, steroids and IV antibiotics. He did have an episode of atrial fibrillation after albuterol. His breathing treatments were changed to Xopenex and he converted back to normal sinus rhythm. Cardiology was consulted. No medication changes noted at this time. At the time of my exam, patient was alert oriented x3, satting 92% plus on room air, in no acute distress and his breathing was back to baseline. He was tolerating a regular diet, he denies any chest pain, shortness of breath at this time, headache, dizziness or palpitations. His diagnosis was explained, all questions were answered and patient verbalized understanding of treatment plan and agreed with it. He was encouraged to follow up with his primary care physician. List primary care physicians was provided to him He was discharged to complete a course of Levaquin, low-dose steroids and Advair. Vital Signs/Physical Exam: Temp Pulse Resp BP Pulse Ox 97.9 F 75 18 147/70 H 94 05/08/18 08:00 05/08/18 08:00 05/08/18 08:00 05/08/18 08:00 05/08/18 08:00 General: Alert, In no apparent distress, Oriented x3 HEENT: Atraumatic, PERRLA, EOMI Neck: Supple, JVD not distended Respiratory: Clear to auscultation bilaterally, Normal air movement Cardiovascular: Regular rate/rhythm, Normal S1 S2 Gastrointestinal: Normal bowel sounds, No tenderness Musculoskeletal: No tenderness Integumentary: No rashes Neurological: Normal speech, Normal tone, Normal affect Lymphatics: No axilla or inguinal lymphadenopathy Laboratory Data at Discharge: WBC 11.7 K/uL (4.3-10.9) H D 05/08/18 06:11 Hgb 11.6 g/dL (13.6-17.9) L 05/08/18 06:11 Hct 35.2 % (39.6-49.0) L 05/08/18 06:11 Plt Count 218 K/uL (152-406) D 05/08/18 06:11 PT 11.7 SECONDS (9.5-12.5) 05/05/18 11:10 INR 0.99 05/05/18 11:10 Sodium 150 mmol/L (136-145) H 05/08/18 06:11 Potassium 4.0 mmol/L (3.5-5.1) 05/08/18 06:11 BUN 23 mg/dL (7-18) H 05/08/18 06:11 Creatinine 0.70 mg/dL (0.55-1.3) 05/08/18 06:11 Glucose 99 mg/dL (74-106) 05/08/18 06:11 Magnesium 2.3 mg/dL (1.8-2.4) 05/07/18 04:14 Total Bilirubin 0.3 mg/dL (0.2-1.0) 05/08/18 06:11 AST 10 U/L (15-37) L 05/08/18 06:11 ALT 14 U/L (12-78) 05/08/18 06:11 Alkaline Phosphatase 79 U/L (45-117) 05/08/18 06:11 Home Medications: Acetaminophen [Tylenol Extra Strength] 1 tab PO PRN PRN 05/05/18 Fluticasone/Salmeterol [Advair Hfa 230-21 Mcg Inhaler] 12 gm IH BID #1 aer.w.adap 05/08/18 levoFLOXacin [Levaquin*] 500 mg PO DAILY #6 tab 05/08/18 predniSONE [Deltasone*] 10 mg PO BID #14 tab 05/08/18 New Medications: Fluticasone/Salmeterol [Advair Hfa 230-21 Mcg Inhaler] 12 gm IH BID #1 aer.w.adap levoFLOXacin [Levaquin*] 500 mg PO DAILY #6 tab predniSONE [Deltasone*] 10 mg PO BID #14 tab Patient Discharge Instructions: Please follow up with the primary care physician in 1 week. Please follow up with pulmonology, information provided. Please follow up with Cardiology, information provided. New medications sent to pharmacy:1) Levaquin for 6 days, this is the antibiotic to help with the pneumonia. 2) prednisone 10 mg twice a day for 7 days. This is a steroid medication to help with her breathing. 3) Advair, this is an inhaler to help with the breathing. Diet: AHA Activity: Ad cade Followup: Juan Pedro MD [ACTIVE - CAN ADMIT] - aJmie Esteves MD [ACTIVE - CAN ADMIT] - Physician Review: Patient Assessed, Agree with Above Assessment and Plan Time spent managing pt's care (in minutes): 45
== END 2018-05-08 14:15 | disposition home or self-care (01) | DRG 190 ==
LOC: ER 10:42 → ERHOLD 12:26 → INTOOBSV 12:26 → 2ND 16:34 → OBSVTOIN 05-07 18:51
PROVIDERS: ADMIT Family Medicine; ATTEND Internal Medicine
DX: J44.0 Chronic obstructive pulmonary disease with (acute) lower respiratory infection (principal); J18.9 Pneumonia, unspecified organism; E44.0 Moderate protein-calorie malnutrition; Z68.1 Body mass index [BMI] 19.9 or less, adult; J44.1 Chronic obstructive pulmonary disease with (acute) exacerbation; E87.6 Hypokalemia; Z87.891 Personal history of nicotine dependence; I48.91 Unspecified atrial fibrillation; R09.02 Hypoxemia; R62.7 Adult failure to thrive; Z23 Encounter for immunization
CPT/HCPCS: 36415; 71045; 80048; 80053; 80076; 81003; 81015; 82805; 83735; 83880; 84132; 84443; 84484; 85025; 85610; 87040; 87070; 87205; 87804; 90670; 93005; 94640; 94760; 96365; 96366; 96375; 99285; G0008; G0009; G0378; J0456; J0696; J1650; J2920; J7030; J7512; J7605; Q2035

== ENCOUNTER 2020-12-17 21:31 | Inpatient (IN) | payer OTHER, SELFPAY ==
[2020-12-17 22:05] LABS: Absolute Lymphocytes (CBC) 1.2 K/uL (0.7-4.9); Basophils % 0.2 % (0-1.3); Hematocrit 41.6 % (39.6-49.0); Lymphocytes % 6.7 % (15.3-44.8); MPV 9.2 fL (7.6-11.3); RBC Red Blood Cell Count 4.46 M/uL (4.33-5.43)
[2020-12-17 22:15] LABS: Protime INR 1.17
[2020-12-17] MEDS ORDERED: Levofloxacin 750mg IV 750 MG/150 ML BAG IV ONE (22:19)
[2020-12-17] MEDS ORDERED: Magnesium Sulfate 2gm IVPB 2 G/50 ML BAG IV ONE (22:19)
[2020-12-17 22:34] LABS: Albumin 3.5 g/dL (3.4-5.0); Bilirubin Direct 0.5 mg/dL (0-0.2); Bilirubin Total 1.3 mg/dL (0.2-1.0); Magnesium 2.1 mg/dL (1.8-2.4); Potassium 4.5 mmol/L (3.5-5.1); Protein, Total 7.4 g/dL (6.4-8.2); Troponin (Emerg Dept Use Only) 0.07 ng/mL (0.0-0.045)
[2020-12-17 22:37] LABS: Arterial Blood Carboxyhemoglob 1.8 % (0-1.5); Blood Gas Oxyhemoglobin 96.6 % (94-97); Blood O2 Saturation 99.3 % (92-98.5)
[2020-12-17] MEDS ORDERED: LORazepam 2 MG/ML VIAL ONE (22:42)
--- NOTE | 2020-12-17 23:19 | ER ---
Nurse's Notes [facility] [place] Name: Kalpesh Nolen Age: 80 yrs Sex: Male : 1940 Arrival Date: 12/17/2020 Time: 21:33 Bed 2 Private MD: Diagnosis: Pneumonia due to other specified bacteria;Sepsis, unspecified organism;COPD/ Chronic obstructive pulmonary disease with (acute) exacerbation Presentation: 12/17 21:30 Chief complaint: EMS states: Pt is reporting severe shortness of breath. 92% on RA. jb4 100% on NRB mask. Unable to tolerate C-pap. Given 125 of solu-medrol via 20g in the LAC. 21:30 Coronavirus screen: Client denies travel out of the [place] in the last 14 days. Client jb4 presents with at least one sign or symptom that may indicate coronavirus-19. Provider contacted for isolation considerations. Ebola Screen: No symptoms or risks identified at this time. Initial Sepsis Screen: Does the patient meet any 2 criteria? RR > 20 per min. HR > 90 bpm. Yes Does the patient have a suspected source of infection? No. Patient's initial sepsis screen is negative. Risk Assessment: Do you want to hurt yourself or someone else? Patient reports no desire to harm self or others. Onset of symptoms was December 17, 2020. Transition of care: patient was not received from another setting of care. 21:30 Method Of Arrival: EMS: [facility] jb4 21:30 Acuity: BOB 1 jb4 Historical: - Allergies: 21:40 No Known Allergies; jb4 - Home Meds: 21:40 None [Active]; jb4 - PMHx: 21:40 COPD; CVA; jb4 - PSHx: 21:40 None; jb4 - Immunization history:: Adult Immunizations unknown. - Social history:: Smoking status: unknown. Screenin/01 00:21 Abuse screen: Denies threats or abuse. Nutritional screening: No deficits noted. ea Tuberculosis screening: No symptoms or risk factors identified. Fall Risk IV access (20 points). Assessment: 12/17 21:30 General: Appears distressed, uncomfortable, ill, slender, Behavior is anxious, jb4 uncooperative. Pain: Denies pain. Neuro: Level of Consciousness is awake, alert, obeys commands, Oriented to person, place, time, situation. Cardiovascular: Patient's skin is warm and dry. Respiratory: Airway is patent Respiratory effort is labored, gasping, using tripod position, Respiratory pattern is symmetrical, tachypnea. GI: No signs and/or symptoms were reported involving the gastrointestinal system. : No signs and/or symptoms were reported regarding the genitourinary system. EENT: No signs and/or symptoms were reported regarding the EENT system. Derm: Skin is intact, Skin is dry, Skin is normal, Skin temperature is warm. Musculoskeletal: Circulation, motion, and sensation intact. Range of motion: intact in all extremities. 22:40 Reassessment: Pt remains A\T\Ox4. Is uncooperative and continues to remove cardiac jb4 monitoring. Pulse ox and B/p cuff remain in place. appears to be tolerating Bi-Pap. 12/18 00:00 Reassessment: Patient appears in no apparent distress at this time. Patient and/or jb4 family updated on plan of care and expected duration. Pain level reassessed. Patient is alert, oriented x 3, equal unlabored respirations, skin warm/dry/pink. 01:27 Reassessment: Patient appears in no apparent distress at this time. Patient and/or jb4 family updated on plan of care and expected duration. Pain level reassessed. Patient is alert, oriented x 3, equal unlabored respirations, skin warm/dry/pink. Vital Signs: 12/17 21:30 Pulse 116; Resp 27; Temp 99.5(TE); Pulse Ox 100% on BiPAP; Weight 54.43 kg (R); Height jb4 6 ft. 1 in. (185.42 cm) (R); Pain 0/10; 22:30 BP 149 / 96; Pulse 97; Resp 24; Pulse Ox 100% on BiPAP; jb4 23:30 BP 149 / 84; Pulse 104; Resp 24; Pulse Ox 100% on BiPAP; jb4 12/18 00:30 BP 147 / 84; Pulse 89; Resp 22; Pulse Ox 100% on BiPAP; jb4 01:00 BP 159 / 80; Pulse 83; Resp 24; Pulse Ox 100% on BiPAP; jb4 10:08 BP 107 / 58; Pulse 103; Resp 20; Pulse Ox 90% on R/A; kg 12/17 21:30 Body Mass Index 15.83 (54.43 kg, 185.42 cm) jb4 ED Course: 12/17 21:30 Arm band placed on right wrist. jb4 21:33 Patient arrived in ED. mw2 21:35 Zuhair Hensley PA is PHCP. jr8 21:35 Carmelo Allen MD is Attending Physician. jr8 21:36 Fab Genao RN is Primary Nurse. jb4 21:40 Triage completed. jb4 22:00 Initial lab(s) drawn, by me, sent to lab. Inserted saline lock: 18 gauge in left jb4 antecubital area, using aseptic technique. Blood collected. 22:05 XRAY Chest (1 view) In Process Unspecified. EDMS 23:17 Carmelo Shah MD is Hospitalizing Provider. jr8 23:27 CT Chest For PE Angio Sent. ea 07 00:22 Patient has correct armband on for positive identification. Bed in low position. Call ea light in reach. Side rails up X2. 01:30 No provider procedures requiring assistance completed. Patient admitted, IV remains in jb4 place. 10:18 Report given to Ellen MARCOSpeoplesoft crm developer. kg Administered Medications: 12/17 21:44 Drug: Albuterol - atroVENT (ipratropium) (3:1) (2.5 mg - 0.5 mg) 3 ml Route: Nebulizer; [facility] 22:00 Follow up: Response: No adverse reaction; Marked relief of symptoms [facility] 22:00 Drug: Magnesium Sulfate 2 grams Route: IVPB; Infused Over: 2 hrs; Site: left jb4 antecubital; 12/18 00:00 Follow up: Response: No adverse reaction; IV Status: Completed infusion [facility] 12/17 22:30 Drug: Ativan (LORazepam) 0.5 mg Route: IVP; Site: left antecubital; [facility] 12/18 00:00 Follow up: Response: No adverse reaction [facility] 12/17 22:36 Drug: LevaQUIN (levofloxacin) 750 mg Volume: 150 ml; Route: IVPB; Infused Over: 90 jb4 mins; Site: left antecubital; 12/18 00:06 Follow up: Response: No adverse reaction; IV Status: Completed infusion [facility] 06/30 23:37 Drug: NS 0.9% 1000 ml Route: IV; Rate: 1000 ml; Site: left antecubital; jb4 23:48 Drug: Lovenox (enoxaparin) 1 mg/kg Route: Sub-Q; Site: left upper arm; jb4 12/18 00:23 Follow up: Response: No adverse reaction jb4 00:42 Drug: NS 0.9% 1000 ml Route: IV; Rate: 1000 ml; Site: left antecubital; jb4 Outcome: 12/17 23:17 Decision to Hospitalize by Provider. jr8 12/18 01:30 Admitted to ER Hold. Please see Taskdoer for further documentation. jb4 Condition: stable Discharge instructions given to patient, Instructed on the need for admit, Demonstrated understanding of instructions. 10:25 Patient left the ED. kg Signatures: Dispatcher [employer] EDMS Zuhair Hensley PA PA jr8 Fab Genao RN RN jb4 Lesia Cardenas RN HEMANT Fannie Schaefer mw2 Sonal Craig RN RN kg Corrections: (The following items were deleted from the chart) 12/17 21:55 21:30 General: Appears distressed, uncomfortable, ill, slender, Behavior is appropriate jb4 for age, anxious, jb4 12/18 00:37 12/17 21:30 Pulse 116bpm; Resp 27bpm; Pulse Ox 100% BiPAP; 54.43 kg Reported; Height 6 jb4 ft. 1 in. Reported; BMI: 15.8; Pain 0/10; jb4
--- NOTE | 2020-12-17 23:19 | EDPHYS ---
Physician Documentation [facility] Name: Kalpesh Nolen Age: 80 yrs Sex: Male : 1940 Arrival Date: 12/17/2020 Time: 21:33 Bed 2 Private MD: ED Physician Carmelo Allen HPI: 12/17 22:17 This 80 yrs old Male presents to ER via EMS with complaints of shortness of jr8 breath. 22:17 The patient has shortness of breath at rest. Onset: The symptoms/episode began/occurred jr8 gradually, 2 day(s) ago, and became worse and became persistent. Duration: The symptoms are continuous. The patient's shortness of breath is aggravated by talking, walking. Associated signs and symptoms: The patient has no apparent associated signs or symptoms. Severity of symptoms: At their worst the symptoms were moderate in the emergency department the symptoms are unchanged. It is unknown whether or not the patient has had similar symptoms in the past. The patient has not recently seen a physician. Historical: - Allergies: 21:40 No Known Allergies; jb4 - Home Meds: 21:40 None [Active]; jb4 - PMHx: 21:40 COPD; CVA; jb4 - PSHx: 21:40 None; jb4 - Immunization history:: Adult Immunizations unknown. - Social history:: Smoking status: unknown. ROS: 22:17 Eyes: Negative for injury, pain, redness, and discharge, ENT: Negative for injury, jr8 pain, and discharge, Neck: Negative for injury, pain, and swelling, Cardiovascular: Negative for chest pain, palpitations, and edema, Abdomen/GI: Negative for abdominal pain, nausea, vomiting, diarrhea, and constipation, Back: Negative for injury and pain, MS/Extremity: Negative for injury and deformity, Skin: Negative for injury, rash, and discoloration, Neuro: Negative for headache, weakness, numbness, tingling, and seizure. 22:17 Respiratory: Positive for dyspnea on exertion, shortness of breath, wheezing. Exam: 22:17 Eyes: Pupils equal round and reactive to light, extra-ocular motions intact. Lids and jr8 lashes normal. Conjunctiva and sclera are non-icteric and not injected. Cornea within normal limits. Periorbital areas with no swelling, redness, or edema. ENT: Nares patent. No nasal discharge, no septal abnormalities noted. Tympanic membranes are normal and external auditory canals are clear. Oropharynx with no redness, swelling, or masses, exudates, or evidence of obstruction, uvula midline. Mucous membranes moist. Neck: Trachea midline, no thyromegaly or masses palpated, and no cervical lymphadenopathy. Supple, full range of motion without nuchal rigidity, or vertebral point tenderness. No Meningismus. Abdomen/GI: Soft, non-tender, with normal bowel sounds. No distension or tympany. No guarding or rebound. No evidence of tenderness throughout. Back: No spinal tenderness. No costovertebral tenderness. Full range of motion. Skin: Warm, dry with normal turgor. Normal color with no rashes, no lesions, and no evidence of cellulitis. MS/ Extremity: Pulses equal, no cyanosis. Neurovascular intact. Full, normal range of motion. Neuro: Awake and alert, GCS 15, oriented to person, place, time, and situation. Cranial nerves II-XII grossly intact. Motor strength 5/5 in all extremities. Sensory grossly intact. 22:17 Cardiovascular: Rate: tachycardic, Rhythm: regular, Pulses: Pulses are 2+ in right radial artery and left radial artery. Heart sounds: normal, normal S1and S2, no S3 or S4, no murmur, no rub, no gallop, Edema: is not appreciated. 22:17 Respiratory: moderate respiratory distress is noted, Respirations: labored breathing, that is moderate, accessory muscle usage, that is moderate, tachypnea, that is mild, Breath sounds: decreased breath sounds, that are moderate, are scattered, wheezing: expiratory that is mild, is heard diffusely. Vital Signs: 21:30 Pulse 116; Resp 27; Temp 99.5(TE); Pulse Ox 100% on BiPAP; Weight 54.43 kg (R); Height jb4 6 ft. 1 in. (185.42 cm) (R); Pain 0/10; 22:30 BP 149 / 96; Pulse 97; Resp 24; Pulse Ox 100% on BiPAP; jb4 23:30 BP 149 / 84; Pulse 104; Resp 24; Pulse Ox 100% on BiPAP; jb4 12/18 00:30 BP 147 / 84; Pulse 89; Resp 22; Pulse Ox 100% on BiPAP; jb4 01:00 BP 159 / 80; Pulse 83; Resp 24; Pulse Ox 100% on BiPAP; jb4 10:08 BP 107 / 58; Pulse 103; Resp 20; Pulse Ox 90% on R/A; kg 12/17 21:30 Body Mass Index 15.83 (54.43 kg, 185.42 cm) jb4 MDM: 12/17 21:35 Patient medically screened. [facility] 23:19 Data reviewed: vital signs, nurses notes, lab test result(s), EKG, radiologic studies, [facility] CT scan, plain films. Data interpreted: Pulse oximetry: on bipap is 100 %. Interpretation: acceptable. Counseling: I had a detailed discussion with the patient and/or guardian regarding: the historical points, exam findings, and any diagnostic results supporting the discharge/admit diagnosis, lab results, radiology results, the need for further work-up and treatment in the hospital. 12/17 21:36 Order name: Basic Metabolic Panel; Complete Time: 22:46 [facility] 12/17 21:36 Order name: CBC with Diff; Complete Time: 22:11 [facility] 12/17 21:36 Order name: LFT's; Complete Time: 22:46 [facility] 12/17 21:36 Order name: Magnesium; Complete Time: 22:46 [facility] 12/17 21:36 Order name: NT PRO-BNP; Complete Time: 22:46 [facility] 12/17 21:36 Order name: PT-INR; Complete Time: 22:23 [facility] 12/17 21:36 Order name: Troponin (emerg Dept Use Only); Complete Time: 22:46 [facility] 12/17 21:36 Order name: Blood Culture Adult (2) [facility] 12/17 21:36 Order name: Procalcitonin; Complete Time: 23:06 [facility] 12/17 21:36 Order name: Lactate; Complete Time: 22:46 [facility] 12/17 21:36 Order name: ABG; Complete Time: 22:51 [facility] 12/17 23:21 Order name: COVID-19 : Document "Date of Symptom Onset" if Symptomatic. mw2 12/18 01:46 Order name: SARS-COV-2 RT PCR; Complete Time: 13:38 EDMS 12/18 03:36 Order name: Lactate Sepsis 2 HR Follow-up; Complete Time: 13:38 EDMS 12/17 21:36 Order name: XRAY Chest (1 view); Complete Time: 13:38 [facility] 12/17 21:36 Order name: EKG; Complete Time: 21:37 [facility] 12/17 21:36 Order name: Cardiac monitoring; Complete Time: 21:54 [facility] 12/17 21:36 Order name: EKG - Nurse/Tech; Complete Time: 22:32 [facility] 12/17 21:36 Order name: IV Saline Lock; Complete Time: 21:54 [facility] 12/17 22:58 Order name: CONS Physician Consult [facility] 12/17 23:19 Order name: CT Chest For PE Angio [facility] 12/18 06:31 Order name: Troponin I; Complete Time: 13:38 EDAZ 12/17 21:36 Order name: Labs collected and sent; Complete Time: 21:54 [facility] 12/17 21:36 Order name: O2 Per Protocol; Complete Time: 21:54 [facility] 12/17 21:36 Order name: O2 Sat Monitoring; Complete Time: 21:54 [facility] Administered Medications: 21:44 Drug: Albuterol - atroVENT (ipratropium) (3:1) (2.5 mg - 0.5 mg) 3 ml Route: Nebulizer; [facility] 22:00 Follow up: Response: No adverse reaction; Marked relief of symptoms [facility] 22:00 Drug: Magnesium Sulfate 2 grams Route: IVPB; Infused Over: 2 hrs; Site: left [address]; 12/18 00:00 Follow up: Response: No adverse reaction; IV Status: Completed infusion [facility] 12/17 22:30 Drug: Ativan (LORazepam) 0.5 mg Route: IVP; Site: left antecubital; [facility] 12/18 00:00 Follow up: Response: No adverse reaction [facility] 12/17 22:36 Drug: LevaQUIN (levofloxacin) 750 mg Volume: 150 ml; Route: IVPB; Infused Over: 90 jb4 mins; Site: left antecubital; 12/18 00:06 Follow up: Response: No adverse reaction; IV Status: Completed infusion [facility] 12/17 23:37 Drug: NS 0.9% 1000 ml Route: IV; Rate: 1000 ml; Site: left antecubital; [facility] 23:48 Drug: Lovenox (enoxaparin) 1 mg/kg Route: Sub-Q; Site: left upper arm; jb4 12/18 00:23 Follow up: Response: No adverse reaction jb4 00:42 Drug: NS 0.9% 1000 ml Route: IV; Rate: 1000 ml; Site: left antecubital; jb4 Disposition Summary: 12/17/20 23:17 Hospitalization Ordered Hospitalization Status: Inpatient Admission jr8 Provider: Carmelo Shah Condition: Fair jr8 Problem: new jr8 Symptoms: have improved jr8 Bed/Room Type: Standard [facility] Location: Telemetry/MedSurg (Inpatient)(12/18/20 10:08) em1 Room Assignment: [facility] [place](12/18/[place] 10:08) em1 Diagnosis - Pneumonia due to other specified bacteria jr8 - Sepsis, unspecified organism jr8 - COPD/ Chronic obstructive pulmonary disease with (acute) exacerbation jr8 Forms: - Medication Reconciliation Form jr8 - SBAR form jr8 Addendum: 12/22/2020 20:39 Co-signature as Attending Physician, Carmelo carbajal a2 Signatures: Dispatcher [employer] EDAZ Alan Winchester em1 Zuhair Hensley PA PA jr8 Sujatha Graham RN RN tl1 Fab Genao RN RN jb4 Carmelo Allen MD MD ma2 Corrections: (The following items were deleted from the chart) 12/17 23:26 23:08 [facility] Con+CT.RAD.BRZ ordered. EDAZ EDMS 12/18 01:23 12/17 23:17 Telemetry/MedSurg (Inpatient) jr8 tl1 12/18 01:23 12/17 23:17 jr8 tl1 12/18 10:08 01:23 [facility] ER HOLD tl1 em1 10:08 01:23 ERHOLD- tl1 em1
[2020-12-17] MEDS ORDERED: NA CHLORIDE 0.9% 2,000 ML ONE (23:52)
[2020-12-18] MEDS ORDERED: ENOXAPARIN 60 MG/0.6 ML SQ ONE (00:03)
[2020-12-18 01:33] VITALS: BMI 15.8
--- NOTE | 2020-12-18 02:11 | P.HP ---
Certification for Inpatient Patient admitted to: Inpatient With expected LOS: >2 Midnights Patient will require the following post-hospital care: None Practitioner: I am a practitioner with admitting privileges, knowledge of patient current condition, hospital course, and medical plan of care. Services: Services provided to patient in accordance with Admission requirements found in Title 42 Section 412.3 of the Code of Federal Regulations <Mati Read S - Last Filed: 12/18/20 02:05> Patient History Date of Service: 12/18/20 Reason for admission: copd exacerbation History of Present Illness: Mr. Nolen is a 80 yo M with COPD here today for one day of SOB. Denies cough, hemoptysis, wheezing, fever, N/V, chest pain. Patient not stable enough to go to CT scan. Given full dose lovenox and fluid bolus in the ED. Smokes 1/2ppd. WBC 18.5, BUN 35, Lactate 2.6, Trop 0.07, BNP 5301. - Past Medical/Surgical History Has patient received pneumonia vaccine in the past: No Diabetic: No -: COPD Past Surgical History: Patient denies surgical history - Family History Family History: Reviewed- Non-Contributory - Family History Mother -: Heart disease, Cancer Father -: Heart disease, Cancer - Social History Smoking Status: Current every day smoker Alcohol use: No CD- Drugs: No Caffeine use: Yes Place of Residence: Home <Mati Read S - Last Filed: 12/18/20 02:05> Date of Service: 12/18/20 <Carmelo Shah - Last Filed: 12/18/20 10:28> Allergies No Known Allergies Allergy (Verified 05/05/18 17:36) Home Medications: Acetaminophen [Tylenol Extra Strength] 1 tab PO PRN PRN 05/05/18 Fluticasone/Salmeterol [Advair Hfa 230-21 Mcg Inhaler] 12 gm IH BID #1 aer.w.adap 05/08/18 levoFLOXacin [Levaquin*] 500 mg PO DAILY #6 tab 05/08/18 predniSONE [Deltasone*] 10 mg PO BID #14 tab 05/08/18 Review of Systems 10-point ROS is otherwise unremarkable Respiratory: Shortness of Breath <Mati Read - Last Filed: 12/18/20 02:05> Physical Examination - Physical Exam General: Alert, Cachectic, Mild distress HEENT: Atraumatic, PERRLA, Mucous membr. moist/pink, EOMI, Sclerae nonicteric Neck: Supple, 2+ carotid pulse no bruit, No LAD, Without JVD or thyroid abnormality Respiratory: Diminished, Expiratory wheezes Cardiovascular: Regular rate/rhythm, Normal S1 S2 Gastrointestinal: Normal bowel sounds, No tenderness Musculoskeletal: No tenderness Integumentary: No rashes Neurological: Normal speech, Normal strength at 5/5 x4 extr, Normal tone, Sensation intact Lymphatics: No axilla or inguinal lymphadenopathy - Studies Laboratory Data (last 24 hrs) 12/17/20 21:50: PT 13.5 H, INR 1.17 12/17/20 21:50: WBC 18.50 H, Hgb 13.8, Hct 41.6, Plt Count 163 12/17/20 21:50: Sodium 135 L, Potassium 4.5, BUN 35 H, Creatinine 1.17, Glucose 110 H, Magnesium 2.1, Total Bilirubin 1.3 H, AST 36, ALT 19, Alkaline Phosphatase 102 <Mati Read - Last Filed: 12/18/20 02:05> - Studies Laboratory Data (last 24 hrs) 12/17/20 21:50: PT 13.5 H, INR 1.17 12/17/20 21:50: WBC 18.50 H, Hgb 13.8, Hct 41.6, Plt Count 163 12/17/20 21:50: Sodium 135 L, Potassium 4.5, BUN 35 H, Creatinine 1.17, Glucose 110 H, Magnesium 2.1, Total Bilirubin 1.3 H, AST 36, ALT 19, Alkaline Phosphatase 102 <Carmelo Shah - Last Filed: 12/18/20 10:28> Assessment and Plan - Problems (Diagnosis) (1) Elevated troponin Current Visit: Yes Status: Acute (2) Sepsis Current Visit: Yes Status: Acute Qualifiers: Sepsis type: sepsis due to unspecified organism Sepsis acute organ dysfunction status: without acute organ dysfunction Qualified Code(s): A41.9 - Sepsis, unspecified organism (3) COPD exacerbation Onset Date: 05/08/18 Current Visit: No Status: Acute - Plan pulm consulted, RT consulted continue BiPAP contingue IV levaquin, IV steroids, breathing treatments continue full dose lovenox q12hr on telemetry, EKG in the AM, trend troponins encourage smoking cessation Discharge Plan: Home Plan to discharge in: 72 Hours - Advance Directives Does patient have a Living Will: No Does patient have a Durable POA for Healthcare: No - Code Status/Comfort Care Code Status Assessed: Yes (full code ) Critical Care: No Time Spent Managing Pts Care (In Minutes): 70 <Mati Read - Last Filed: 12/18/20 02:05> Date of Service: 12/18/20 Charge is been reviewed. Patient has some respiratory difficulty but he is doing much better on 4 L nasal cannula. Patient having difficulty seeing and there was concern that patient is poorly kept at home. He apparently has a son taking care of him the patient states that his son really does not care for him. He was found a large amount of stool & urine. Will get social service evaluation. Continue with breathing treatments along with steroids. Patient will need outpatient ophthalmology. Continue with antibiotic therapy. Gentle hydration as well. Monitor hemodynamics closely. <Carmelo Shah - Last Filed: 12/18/20 10:28>
--- NOTE | 2020-12-18 02:16 | P.INFCA ---
Sepsis Focused Assessment - Focused Assessment Complete? Sepsis Focused Assessment Completed?: Yes - Sepsis Screen Result Severe Sepsis: Negative Septic Shock: Negative - Evaluation Current stage of sepsis: Ruled out Reason for ruling out sepsis: vital stable, lactate <4, copd exacerbation receiving IV levaquin and fluid - Vital Signs Reviewed: Yes - Examination Heart: Regular rate/rhythm, S1, S2 Lungs: Diminished air movement, Wheezes, Other (on biPAP) Peripheral pulses: 3+ Normal Peripheral pulse location: Radial Capillary refill: <2 Seconds Skin examination: Normal turgor <Mati Read - Last Filed: 12/18/20 02:15> Date of Service: 12/18/20 Chart reviewed and agree with plan of care as mentioned above. <Carmelo Shah - Last Filed: 12/18/20 10:28>
[2020-12-18] MEDS ORDERED: ACETAMINOPHEN 500 MG TAB PO PRN (02:34)
[2020-12-18] MEDS: NA CHLORIDE 0.9% 1,000 ML IV SCH ×2 (02:34→16:59)
[2020-12-18] MEDS: IPRATROPIUM BROM 0.5MG/2.5ML NEB SCH ×4 (02:34→19:45)
[2020-12-18] MEDS ORDERED: LEVALBUTEROL 0.63 MG/3 ML NEB NEB SCH (02:34)
[2020-12-18] MEDS ORDERED: GUAIFENESIN/CODEINE 5ML UCUP PO PRN (02:34)
[2020-12-18] MEDS ORDERED: ONDANSETRON 4 MG/2 ML VIAL IV PRN (02:34)
[2020-12-18] MEDS ORDERED: NA CHLORIDE 0.9% 1,000 ML ONE (03:30)
[2020-12-18] MEDS: METHYLPREDNISOLONE 40 MG INJ IV SCH ×3 (05:30→17:02)
[2020-12-18] MEDS ORDERED: METHYLPREDNISOLONE 40 MG INJ ONE (05:36)
[2020-12-18] MEDS: ALBUTEROL 2.5 MG/3 ML NEB SOL NEB SCH ×3 (07:43→19:45)
[2020-12-18] MEDS ORDERED: PNEUMOCOCCAL VACCINE 0.5 ML IMVAC ONE ×2 (08:00→08:55)
[2020-12-18] MEDS ORDERED: IPRATROPIUM BROM 0.5MG/2.5ML ONE (08:02)
[2020-12-18] MEDS ORDERED: ALBUTEROL 2.5 MG/3 ML NEB SOL ONE (08:02)
--- NOTE | 2020-12-18 09:03 | RAD REPORT ---
EXAM DESCRIPTION: RAD - Chest Single View - 12/17/2020 10:06 pm CLINICAL HISTORY: Cough;Dyspnea Chest pain. COMPARISON: Chest Single View dated 05/05/2018 FINDINGS: Portable technique limits examination quality. Severe emphysematous changes are present. 2 cm pulmonary mass with adjacent pleural thickening is not ed in the right apex. The heart is normal in size. No displaced fractures. IMPRESSION: Marked emphysema is present with development of a 2 cm right apical lung mass. Followup CT chest would be recommended.
--- NOTE | 2020-12-18 09:08 | P.CNS ---
Date of Consult: 12/18/20 Reason for Consult: Respiratory failure Chief Complaint: copd exacerbation History of Present Illness: Patient is 80 years of age admitted with worsening shortness of breath he has a history of COPD currently unresponsive on BiPAP very heavy smoker Possible homeless is currently stable Allergies No Known Allergies Allergy (Verified 05/05/18 17:36) Home Medications: Acetaminophen [Tylenol Extra Strength] 1 tab PO PRN PRN 05/05/18 Fluticasone/Salmeterol [Advair Hfa 230-21 Mcg Inhaler] 12 gm IH BID #1 aer.w.adap 05/08/18 levoFLOXacin [Levaquin*] 500 mg PO DAILY #6 tab 05/08/18 predniSONE [Deltasone*] 10 mg PO BID #14 tab 05/08/18 - Past Medical/Surgical History Diabetic: No -: COPD -: CVA - Family History Mother Medical History: Heart disease, Cancer Father Medical History: Heart disease, Cancer - Social History Smoking Status: Current every day smoker Alcohol use: No CD- Drugs: No Caffeine use: Yes Place of Residence: Home Review of Systems is unable to be obtained Physical Examination Temp Pulse Resp BP Pulse Ox 99.2 F 118 H 17 130/54 L 97 12/18/20 04:00 12/18/20 08:00 12/18/20 08:00 12/18/20 08:00 12/18/20 08:00 General: Unresponsive Respiratory: Diminished, Expiratory wheezes Cardiovascular: No edema, Regular rate/rhythm, Normal S1 S2 Laboratory Data (last 24 hrs) 12/17/20 21:50: PT 13.5 H, INR 1.17 12/17/20 21:50: WBC 18.50 H, Hgb 13.8, Hct 41.6, Plt Count 163 12/17/20 21:50: Sodium 135 L, Potassium 4.5, BUN 35 H, Creatinine 1.17, Glucose 110 H, Magnesium 2.1, Total Bilirubin 1.3 H, AST 36, ALT 19, Alkaline Phosphatase 102 - Problems (1) Respiratory failure with hypoxia and hypercapnia Current Visit: Yes Status: Acute Plan: Patient is 80 years of age admitted with respiratory distress I suspect he has significant COPD chest x-ray shows COPD changes this hypoxic hypercapnic white count mildly elevated continue with bronchodilators steroids antibiotics change to nasal cannula oxygen patient will need bronchodilators at home Qualifiers: Chronicity: acute on chronic Qualified Code(s): J96.21 - Acute and chronic respiratory failure with hypoxia; J96.22 - Acute and chronic respiratory failure with hypercapnia (2) Lung mass Current Visit: Yes Status: Acute Plan: Patient has a right apical mass most likely cancer lead to be evaluated as an outpatient
--- NOTE | 2020-12-18 10:32 | P.PN ---
Subjective Date of Service: 12/18/20 Patient is doing better. Blood pressure & respiratory status is stable. Will go ahead and monitor him on telemetry/general medical floor. Awaiting for social service evaluation as well. Review of Systems 10-point ROS is otherwise unremarkable Physical Examination - Vital Signs Temperature: 99.2 F Blood Pressure: 130/54 Pulse: 118 Respirations: 17 Pulse Ox (%): 97 - Physical Exam General: Alert, In no apparent distress, Disheveled, Demented, Confused Respiratory: Diminished, Expiratory wheezes Cardiovascular: Regular rate/rhythm, Normal S1 S2, Systolic murmur Gastrointestinal: Normal bowel sounds, Soft and benign, Non-distended, No tenderness Musculoskeletal: No clubbing, Swelling Neurological: Sensation intact, Cranial nerves 3-12 intact, Abnormal gait, Abnormal speech, Abnormal strength - Studies Laboratory Data (last 24 hrs) 12/17/20 21:50: PT 13.5 H, INR 1.17 12/17/20 21:50: WBC 18.50 H, Hgb 13.8, Hct 41.6, Plt Count 163 12/17/20 21:50: Sodium 135 L, Potassium 4.5, BUN 35 H, Creatinine 1.17, Glucose 110 H, Magnesium 2.1, Total Bilirubin 1.3 H, AST 36, ALT 19, Alkaline Phosphatase 102 Medications List Reviewed: Yes Assessment & Plan - Problems (Diagnosis) (1) COPD with acute exacerbation Status: Acute (2) Sepsis Status: Acute (3) Lung mass Status: Acute (4) Respiratory failure with hypoxia and hypercapnia Status: Acute Qualifiers: Chronicity: acute on chronic Qualified Code(s): J96.21 - Acute and chronic respiratory failure with hypoxia; J96.22 - Acute and chronic respiratory failure with hypercapnia (5) Atrial fibrillation Onset Date: 05/08/18 Status: Acute Qualifiers: Atrial fibrillation type: paroxysmal Qualified Code(s): I48.0 - Paroxysmal atrial fibrillation (6) Failure to thrive Onset Date: 05/08/18 Status: Acute Qualifiers: Failure to thrive age range: in adult Qualified Code(s): R62.7 - Adult failure to thrive - Plan 1. Continue with IV antibiotics 2. Awaiting sputum and blood culture 3. Repeat chest x-ray 4. weaning off of BiPAP support 5. Pulmonary consultation pending 6. Continue with nebs as needed 7. O2 per protocol 8. Continue with gentle hydration 9. monitor labs closely Discharge Plan: Home Plan to discharge in: Greater than 2 days - Advance Directives Does patient have a Living Will: No Does patient have a Durable POA for Healthcare: No - Code Status/Comfort Care Code Status Assessed: Yes Code Status: Full Code Critical Care: No Time Spent Managing PTS Care (In Minutes): 35
[2020-12-18 10:41] LABS: Arterial Blood Carboxyhemoglob 1.6 % (0-1.5); Blood Gas Oxyhemoglobin 88.3 % (94-97); Blood O2 Saturation 90.6 % (92-98.5)
[2020-12-18] MEDS: METOPROLOL TARTRATE 5 MG/5 ML INJ IV STA ×2 (11:50→11:55)
[2020-12-18] MEDS: PIPER/TAZO/NS 3.375gm 3.375 GM/100 ML BAG IVPB SCH ×2 (12:48→18:08)
[2020-12-18] MEDS: ENOXAPARIN 60 MG/0.6 ML SQ SCH ×2 (12:49→21:00)
[2020-12-18] MEDS ORDERED: DIGOXIN 0.25 MG/ML AMP IV ONE (13:00)
[2020-12-18] MEDS: ENSURE ENLIVE 237 ML CAN PO SCH ×2 (14:00→21:02)
[2020-12-18 14:29] LABS: ALT/SGPT 17 U/L (12-78); AST/SGOT 31 U/L (15-37); Albumin 2.7 g/dL (3.4-5.0); Alkaline Phosphatase 77 U/L (45-117); BUN Blood Urea Nitrogen 35 mg/dL (7-18); Bicarbonate 28 mmol/L (21-32); Bilirubin Total 0.7 mg/dL (0.2-1.0); Glucose Level 105 mg/dL (74-106); HDL Cholesterol 65 mg/dL (40-60); LDL Cholesterol, Calculated 84 (<130); Magnesium 2.5 mg/dL (1.8-2.4); Phosphorus 2.5 mg/dL (2.5-4.9); Potassium 4.3 mmol/L (3.5-5.1); Sodium Level 139 mmol/L (136-145); Thyroid Stimulating Hormone 0.437 uIU/mL (0.360-3.740)
[2020-12-18 14:30] LABS: Absolute Lymphocytes (CBC) 0.6 K/uL (0.7-4.9); Basophils % 0.3 % (0-1.3); Hematocrit 37.7 % (39.6-49.0); Lymphocytes % 3.6 % (15.3-44.8); MPV 9.8 fL (7.6-11.3); RBC Red Blood Cell Count 4.06 M/uL (4.33-5.43)
[2020-12-18 15:06] LABS: Blood Morphology Comment NOT SEEN (NOT SEEN); Platelet Estimate DECR; White Blood Cell Scan OK (OK)
[2020-12-18] MEDS ORDERED: SOTALOL HCL 80 MG TAB PO ONE ×2 (17:00→23:59)
[2020-12-18] MEDS ORDERED: SOTALOL HCL 80 MG TAB PO SCH (18:00)
[2020-12-18] MEDS ORDERED: ENSURE ENLIVE 237 ML CAN PO SCH (21:00)
[2020-12-18] MEDS: JUVEN PACKET PO SCH (21:02)
[2020-12-18] MEDS ORDERED: MELATONIN 5 MG TABLET PO PRN (21:29)
[2020-12-19] MEDS: METHYLPREDNISOLONE 40 MG INJ IV SCH ×2 (00:30→09:31)
[2020-12-19] MEDS: PIPER/TAZO/NS 3.375gm 3.375 GM/100 ML BAG IVPB SCH ×2 (00:30→09:32)
[2020-12-19] MEDS: IPRATROPIUM BROM 0.5MG/2.5ML NEB SCH ×3 (02:15→14:00)
[2020-12-19] MEDS: ALBUTEROL 2.5 MG/3 ML NEB SOL NEB SCH ×3 (02:15→14:00)
[2020-12-19] MEDS ORDERED: SOTALOL HCL 80 MG TAB PO SCH (06:00)
[2020-12-19] MEDS: NA CHLORIDE 0.9% 1,000 ML IV SCH (06:32)
[2020-12-19 06:51] LABS: Absolute Lymphocytes (CBC) 0.6 K/uL (0.7-4.9); Basophils % 0.4 % (0-1.3); Hematocrit 37.3 % (39.6-49.0); MPV 9.4 fL (7.6-11.3); RBC Red Blood Cell Count 3.95 M/uL (4.33-5.43)
[2020-12-19 07:21] LABS: ALT/SGPT 19 U/L (12-78); AST/SGOT 41 U/L (15-37); Albumin 2.8 g/dL (3.4-5.0); Alkaline Phosphatase 73 U/L (45-117); BUN Blood Urea Nitrogen 40 mg/dL (7-18); Bicarbonate 31 mmol/L (21-32); Bilirubin Total 0.7 mg/dL (0.2-1.0); Glucose Level 113 mg/dL (74-106); Magnesium 2.4 mg/dL (1.8-2.4); NT PRO-BNP 6258 pg/mL (<450); Potassium 4.4 mmol/L (3.5-5.1); Protein, Total 5.8 g/dL (6.4-8.2); Sodium Level 139 mmol/L (136-145)
--- NOTE | 2020-12-19 08:41 | CON ---
Date of Consultation: 12/18/2020 Reason For Consultation: Atrial fibrillation, COPD exacerbation. History Of Present Illness: Mr. Nolen is a 80-year-old white male with history of COPD and CVA, c jenni in with COPD exacerbation, was found to have an atrial fibrillation at a rate of 148. He had an elevated white count. BNP of 5301. No chest pain. No nausea, vomiting, diaphoresis, PND, orthopnea , pedal edema, palpitation, or syncope. He just came in complaining of shortness of breath. Past Medical History: As stated above. Allergies: NONE. Review of Systems: Negative. Social History: Positive for tobacco. Family History: Negative. Medications: At home are none. Physical Examination: General: He appeared his stated age. No acute distress, but he was in atrial fibrillation at a rate of 148. HEENT: Negative. Neck: Supple. No bruit. Chest: Clear to auscultation and percussion. Cardiac: Atrial fibrillation. No murmurs, gallops, or rubs. Abdomen: Benign. Extremities: No clubbing, cyanosis, or edema. Diagnostic Data: As stated earlier. Impression: 1.Chronic obstructive pulmonary disease exacerbation. 2.Atrial fibrillation, new onset. 3.Elevated white count. 4.Elevated BNP. 5.History of cerebrovascular accident. Plan: I think Mr. Nolen needs to be on sotalol 80 mg one p.o. b.i.d. He has already received IV digoxin and IV beta-yoshi. We will put him on sotalol 80 b.i.d., get an echocardiogram. He will n eed long-term anticoagulation when he goes home, but we will see how he does with the sotalol first. MICHAEL/IQRAL Voice ID: [id number] Report ID: [id number]
--- NOTE | 2020-12-19 08:44 | RAD REPORT ---
EXAM DESCRIPTION: RAD - Chest Single View - 12/19/2020 6:36 am CLINICAL HISTORY: pneumonia Chest pain. COMPARISON: Chest Single View dated 12/17/2020; Chest Single View dated 05/05/2018 FINDINGS: Portable technique limits examination quality. Again noted is severe emphysema with vague 2 cm right apical lung lesion present. The lesion is somew hat more difficult to visualize on today's study. The heart is normal in size. Recommend followup CT chest assessment for further workup.
[2020-12-19] MEDS: JUVEN PACKET PO SCH (09:00)
[2020-12-19] MEDS ORDERED: TAMSULOSIN 0.4 MG SR CAP PO SCH (09:00)
[2020-12-19] MEDS: ENSURE ENLIVE 237 ML CAN PO SCH (09:00)
[2020-12-19] MEDS: ENOXAPARIN 60 MG/0.6 ML SQ SCH (09:31)
[2020-12-19 10:06] VITALS: O2SAT 91
--- NOTE | 2020-12-19 10:50 | PN ---
Date of Progress Note: 12/19/2020 Mr. Nolen is a 80-year-old male with history of CVA, atrial fibrillation, COPD. His atrial fibril lation is new. We started him on sotalol 80 mg 1 p.o. b.i.d. He only received 1 dose. His heart ra te this morning is in the 80s. He is on Lovenox. There is an echocardiogram pending today. Once he gets 3 dosages of sotalol and his COPD improves, he can go home, but he should be going home on Eliq uis or Xarelto and we will readdress the atrial fibrillation down the road as an outpatient. For now , we will keep him here. Continue sotalol. Continue Lovenox. Continue COPD treatment. I will cont inue to follow him. MICHAEL/LAURA Voice ID: [id number] Report ID: [id number]
[2020-12-19] MEDS ORDERED: Levofloxacin 750mg IV 750 MG/150 ML BAG IV SCH (21:00)
[2020-12-22 05:07] VITALS: BP 130/54; TEMP 99.2
--- NOTE | 2020-12-22 05:08 | P.DS ---
Discharge Date: 12/19/20 Disposition: AMA-LEFT AGAINST MEDICAL ADVIC Reason for Admission: COPD exacerbation Consultations: Cardiology Pulmonary - Problems (1) COPD with acute exacerbation Status: Acute (2) Sepsis Status: Acute (3) Lung mass Status: Acute (4) Respiratory failure with hypoxia and hypercapnia Status: Acute Qualifiers: Chronicity: acute on chronic Qualified Code(s): J96.21 - Acute and chronic respiratory failure with hypoxia; J96.22 - Acute and chronic respiratory failure with hypercapnia (5) Atrial fibrillation Onset Date: 05/08/18 Status: Acute Qualifiers: Atrial fibrillation type: paroxysmal Qualified Code(s): I48.0 - Paroxysmal atrial fibrillation (6) Failure to thrive Onset Date: 05/08/18 Status: Acute Qualifiers: Failure to thrive age range: in adult Qualified Code(s): R62.7 - Adult failure to thrive Brief History of Present Illness: Mr. Nolen is a 80 yo M with COPD here today for one day of SOB. Denies cough, hemoptysis, wheezing, fever, N/V, chest pain. Patient not stable enough to go to CT scan. Given full dose lovenox and fluid bolus in the ED. Smokes 1/2ppd. WBC 18.5, BUN 35, Lactate 2.6, Trop 0.07, BNP 5301. Hospital Course: Patient was slowly improving. However, he did not want stay in the hospital any longer. He decided to leave against medical advice. Patient long-term prognosis is poor. 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 Vital Signs/Physical Exam: Temp Pulse Resp BP Pulse Ox 99.2 F 118 H 17 130/54 L 97 12/22/20 05:06 12/22/20 05:06 12/22/20 05:06 12/22/20 05:06 12/22/20 05:06 General: Alert, In no apparent distress, Oriented x3, Cachectic Laboratory Data at Discharge: WBC 18.60 K/uL (4.3-10.9) H 12/19/20 06:18 Hgb 12.2 g/dL (13.6-17.9) L 12/19/20 06:18 Hct 37.3 % (39.6-49.0) L 12/19/20 06:18 Plt Count 187 K/uL (152-406) D 12/19/20 06:18 PT 13.5 SECONDS (9.5-12.5) H 12/17/20 21:50 INR 1.17 12/17/20 21:50 Sodium 139 mmol/L (136-145) 12/19/20 06:18 Potassium 4.4 mmol/L (3.5-5.1) 12/19/20 06:18 BUN 40 mg/dL (7-18) H 12/19/20 06:18 Creatinine 0.82 mg/dL (0.55-1.3) 12/19/20 06:18 Glucose 113 mg/dL (74-106) H 12/19/20 06:18 Phosphorus 2.5 mg/dL (2.5-4.9) 12/18/20 13:43 Magnesium 2.4 mg/dL (1.8-2.4) 12/19/20 06:18 Total Bilirubin 0.7 mg/dL (0.2-1.0) 12/19/20 06:18 AST 41 U/L (15-37) H 12/19/20 06:18 ALT 19 U/L (12-78) 12/19/20 06:18 Alkaline Phosphatase 73 U/L (45-117) 12/19/20 06:18 Troponin I 0.07 ng/mL (0.0-0.045) H 12/18/20 13:43 Triglycerides 75 mg/dL (<150) 12/18/20 13:43 Cholesterol 164 mg/dL (<200) 12/18/20 13:43 HDL Cholesterol 65 mg/dL (40-60) H 12/18/20 13:43 Cholesterol/HDL Ratio 2.52 12/18/20 13:43 Home Medications: EPINEPHrine [Primatene Mist] 1 aer IH PRN 12/18/20 Naproxen Sod/Diphenhydram HCl [Aleve Pm Caplet] 4 tab PO BEDTIME 12/18/20 Physician Discharge Instructions: Patient left against medical advice Followup: NONE,NONE [Primary Care Provider] - Time spent managing pt's care (in minutes): 35
--- NOTE | 2020-12-23 16:17 | EKG ---
Test Date: 2020-12-18 Test Time: 11:26:16 Ripper Operator: MIR MEASUREMENT RESULTS: Intervals: Rate: 133 [place]: QRSD: 92 QT: 322 QTc: 479 [place]: P: [place]: QRS: 39 T: 73 INTERPRETIVE STATEMENTS: Atrial fibrillation with rapid ventricular response Moderate voltage criteria for LVH, may be normal variant Abnormal ECG Compared to ECG 05/07/2018 07:55:05 Left ventricular hypertrophy now present Sinus rhythm no longer present Short [place] interval no longer present Electronically Signed On 12-23-20 16:09:22 CDT by Neil Prater
== END 2020-12-19 15:04 | disposition left against medical advice (07) | DRG 871 ==
LOC: ER 21:31 → ERHOLD 23:29 → 2ND 12-18 10:13
PROVIDERS: ADMIT Hospitalist; ATTEND Hospitalist
PROC: 5A09357 Assistance with Respiratory Ventilation, Less than 24 Consecutive Hours, Continuous Positive Airway Pressure (ICD-10-PCS; principal; 2020-12-17)
DX: A41.9 Sepsis, unspecified organism (principal); J96.22 Acute and chronic respiratory failure with hypercapnia; J96.21 Acute and chronic respiratory failure with hypoxia; J44.1 Chronic obstructive pulmonary disease with (acute) exacerbation; Z68.1 Body mass index [BMI] 19.9 or less, adult; R64 Cachexia; I48.0 Paroxysmal atrial fibrillation; R62.7 Adult failure to thrive; R91.8 Other nonspecific abnormal finding of lung field; F17.210 Nicotine dependence, cigarettes, uncomplicated; Z53.29 Procedure and treatment not carried out because of patient's decision for other reasons; Z86.73 Personal history of transient ischemic attack (TIA), and cerebral infarction without residual deficits; Z20.822 Contact with and (suspected) exposure to COVID-19; Z23 Encounter for immunization
CPT/HCPCS: 36415; 71045; 80048; 80053; 80061; 80076; 82805; 83605; 83735; 83880; 84100; 84145; 84439; 84443; 84484; 85025; 85610; 87040; 90471; 90732; 93005; 94640; 94660; 94760; 96365; 96372; 96375; 99291; 99292; J1160; J1650; J2543; J2920; J3475; J7030; U0003

== ENCOUNTER 2021-02-03 19:34 | Inpatient (IN) | payer OTHER ==
[2021-02-03] MEDS ORDERED: METHYLPREDNISOLONE 125 MG INJ ONE (20:16)
[2021-02-03 20:18] LABS: Absolute Lymphocytes (CBC) 0.8 K/uL (0.7-4.9); Basophils % 0.4 % (0-1.3); Hematocrit 43.7 % (39.6-49.0); Lymphocytes % 11.3 % (15.3-44.8); MPV 8.6 fL (7.6-11.3); RBC Red Blood Cell Count 4.65 M/uL (4.33-5.43)
[2021-02-03 20:23] LABS: Protime INR 0.97
--- NOTE | 2021-02-03 20:28 | RAD REPORT ---
EXAM DESCRIPTION: RAD - Chest Single View - 02/03/2021 8:11 pm CLINICAL HISTORY: Dyspnea;Chest pain COMPARISON: Chest Single View dated 12/19/2020; Chest Single View dated 12/17/2020; Chest Single View d ated 05/05/2018 FINDINGS: Severe emphysema without superimposed acute process. Re- demonstrated nearly 3 centimeter right upper lobe mass. The heart size is within normal limits.No acute osseous abnormality. No signif icant pleural effusions or pneumothorax. IMPRESSION: Emphysema without superimposed acute process. Right upper lobe lesion concerning for radha plasm. Chest CT could further evaluate.
[2021-02-03 21:04] LABS: ALT/SGPT 15 U/L (12-78); AST/SGOT 19 U/L (15-37); Albumin 3.4 g/dL (3.4-5.0); Alkaline Phosphatase 144 U/L (45-117); BUN Blood Urea Nitrogen 26 mg/dL (7-18); Bicarbonate 32 mmol/L (21-32); Bilirubin Direct 0.2 mg/dL (0-0.2); Bilirubin Total 0.5 mg/dL (0.2-1.0); Glucose Level 92 mg/dL (74-106); Lipase 146 U/L (73-393); Potassium 3.6 mmol/L (3.5-5.1); Protein, Total 6.8 g/dL (6.4-8.2); Sodium Level 142 mmol/L (136-145); Troponin (Emerg Dept Use Only) < 0.02 ng/mL (0.0-0.045)
[2021-02-03] MEDS ORDERED: LORazepam 2 MG/ML VIAL ONE (21:04)
--- NOTE | 2021-02-03 21:58 | ER ---
Nurse's Notes [facility] Name: Kalpesh Nolen Age: 80 yrs Sex: Male : 1940 Arrival Date: 02/03/2021 Time: 19:35 Bed 14 Private MD: Diagnosis: Coronavirus infection, unspecified;Hypoxia Presentation: 02/03 20:08 Chief complaint: EMS states: toned out for SOB. Upon arrival pt was 88% RA. Coronavirus ld1 screen: At this time, the client does not indicate any symptoms associated with coronavirus-19. Ebola Screen: No symptoms or risks identified at this time. Initial Sepsis Screen: Does the patient meet any 2 criteria? No. Patient's initial sepsis screen is negative. Does the patient have a suspected source of infection? No. Patient's initial sepsis screen is negative. Risk Assessment: Do you want to hurt yourself or someone else? Patient reports no desire to harm self or others. Onset of symptoms was February 03, 2021. 20:08 Method Of Arrival: EMS: [facility] ld1 20:08 Acuity: BOB 3 ld1 Triage Assessment: 20:10 General: Appears in no apparent distress. uncomfortable, slender, unkempt, Behavior is ld1 calm, cooperative, appropriate for age. Pain: Complains of pain in anterior aspect of left lateral abdomen and posterior aspect of left lateral abdomen Pain does not radiate. Pain currently is 7 out of 10 on a pain scale. Quality of pain is described as sharp, Pain began 1 day ago. Is continuous. EENT: No signs and/or symptoms were reported regarding the EENT system. Neuro: Level of Consciousness is awake, alert, obeys commands, Oriented to person, place, time, situation. Cardiovascular: Capillary refill < 3 seconds Patient's skin is warm and dry. Rhythm is irregular. Respiratory: Reports shortness of breath cough that is air hunger labored breathing Onset: The symptoms/episode began/occurred yesterday, the patient has moderate shortness of breath. GI: Abdomen is flat, non-distended. : Reports incontinence. Derm: No signs and/or symptoms reported regarding the dermatologic system. Musculoskeletal: No signs and/or symptoms reported regarding the musculoskeletal system. Historical: - Allergies: 20:10 No Known Allergies; ld1 - Home Meds: 20:10 None [Active]; ld1 - PMHx: 20:10 COPD; CVA; ld1 - Immunization history:: Adult Immunizations up to date, Client reports having NOT received the Covid vaccine. - Social history:: Smoking status: Patient/guardian denies using tobacco, Stopped _ months ago 1. Screenin:13 Abuse screen: Denies threats or abuse. Denies injuries from another. Nutritional ld1 screening: No deficits noted. Tuberculosis screening: No symptoms or risk factors identified. Fall Risk None identified. Assessment: 20:13 Reassessment: See triage assessment. Cardiovascular: Capillary refill < 3 seconds ld1 Patient's skin is warm and dry. Rhythm is irregular. Respiratory: Airway is patent Respiratory effort is even, labored, Respiratory pattern is hyperventilation Breath sounds with crackles bilaterally. 20:49 Reassessment: Patient appears in no apparent distress at this time. Patient and/or ld1 family updated on plan of care and expected duration. Pain level reassessed. Patient laying in bed, denies concerns at this time. RR 27. 21:16 Reassessment: Patient appears in no apparent distress at this time. Pt laying in bed ld1 sleeping. RR 27. 02/04 00:11 Reassessment: Patient appears in no apparent distress at this time. Patient and/or ld1 family updated on plan of care and expected duration. Pain level reassessed. Laying in bed sleeping. RR 26. Vital Signs: 02/03 20:08 BP 108 / 54; Pulse 97; Resp 17; Temp 99.1(O); Pulse Ox 100% on 100% BiPAP; Weight 52.16 ld1 kg; Height 6 ft. 0 in. (182.88 cm); Pain 7/10; 20:49 BP 130 / 99; Pulse 79; Resp 29; Pulse Ox 100% on 40% BiPAP; ld1 21:16 BP 138 / 77; Pulse 80; Resp 33; Pulse Ox 99% on 40% BiPAP; ld1 18 00:11 BP 142 / 55; Pulse 75; Resp 26; Pulse Ox 96% on R/A; ld1 02/03 20:08 Body Mass Index 15.60 (52.16 kg, 182.88 cm) ld1 ED Course: 02/03 19:35 Patient arrived in ED. bp1 19:36 [facility] kb 19:36 Cristóbal Fletcher MD is Attending Physician. kb 19:52 Milagros Levy, RN is Primary Nurse. ld1 20:10 Triage completed. ld1 20:10 Arm band placed on right wrist. EKG completed in triage. Results shown to MD. ld1 20:11 Chest Single View XRAY In Process Unspecified. EDMS 20:13 No provider procedures requiring assistance completed. Inserted saline lock: 20 gauge ld1 in right forearm, using aseptic technique. Blood collected. 20:13 Patient has correct armband on for positive identification. Bed in low position. Call ld1 light in reach. Side rails up X2. campus monitor on. Pulse ox on. NIBP on. Door closed. Noise minimized. Warm blanket given. 21:57 Franco Hearn MD is Hospitalizing Provider. kb 02/04 00:17 CT Chest For PE Angio In Process Unspecified. EDMS Administered Medications: 02/03 20:00 Drug: SOLU-Medrol (methylPrednisoLONE) 125 mg Route: IVP; Site: right forearm; ld1 20:50 Drug: Ativan (LORazepam) 0.5 mg Route: IVP; Site: right forearm; ld1 Outcome: 21:58 Decision to Hospitalize by Provider. kb 02/04 11:54 Patient left the ED. tw2 Signatures: Dispatcher [employer] EDMS Cande Roldan FNP-C FNP-Cherelle Beltran RN RN tw2 Mira Jon bp1 Milagros Levy, RN RN ld1 Corrections: (The following items were deleted from the chart) 02/03 20:20 20:08 CORONAVIRUS+ drawn and sent. ld1 EDMS
--- NOTE | 2021-02-03 21:58 | EDPHYS ---
Physician Documentation [facility] Name: Kalpesh Nolen Age: 80 yrs Sex: Male : 1940 Arrival Date: 02/03/2021 Time: 19:35 Bed 14 Private MD: ED Physician Cristóbal Fletcher HPI: 02/03 22:43 This 80 yrs old Male presents to ER via EMS with complaints of Shortness Of kb Breath. 22:43 The patient has shortness of breath at rest. Onset: The symptoms/episode began/occurred kb today. Duration: The symptoms are continuous. The patient's shortness of breath is aggravated by exertion, is alleviated by nothing. Associated signs and symptoms: Pertinent positives: chest pain, non-productive cough. Severity of symptoms: At their worst the symptoms were moderate in the emergency department the symptoms are unchanged. The patient has not experienced similar symptoms in the past. The patient has not recently seen a physician. Pt reports shortness of breath and chest pain started today. Son recently diagnosed with covid. Historical: - Allergies: 20:10 No Known Allergies; ld1 - Home Meds: 20:10 None [Active]; ld1 - PMHx: 20:10 COPD; CVA; ld1 - Immunization history:: Adult Immunizations up to date, Client reports having NOT received the Covid vaccine. - Social history:: Smoking status: Patient/guardian denies using tobacco, Stopped _ months ago 1. ROS: 22:43 Constitutional: Negative for fever, chills, and weight loss. kb 22:43 Cardiovascular: Positive for chest pain, Negative for edema, orthopnea, palpitations, paroxysmal nocturnal dyspnea. 22:43 Respiratory: Positive for cough, dyspnea on exertion, shortness of breath. 22:43 All other systems are negative. Exam: 22:43 Head/Face: Normocephalic, atraumatic. ENT: Moist Mucous membranes Cardiovascular: kb Regular rate and rhythm with a normal S1 and S2. No gallops, murmurs, or rubs. No pulse deficits. Abdomen/GI: Soft, non-tender. No distention Skin: Warm, dry with normal turgor. Normal color. MS/ Extremity: Pulses equal, no cyanosis. Neurovascular intact. Full, normal range of motion. Neuro: Awake and alert, GCS 15, oriented to person, place, time, and situation. Moves all extremities. Normal gait. Psych: Awake, alert, with orientation to person, place and time. Behavior, mood, and affect are within normal limits. 22:43 Constitutional: The patient appears alert, awake, emaciated. 22:43 Respiratory: moderate respiratory distress is noted, Respirations: labored breathing, Breath sounds: decreased breath sounds. Vital Signs: 20:08 BP 108 / 54; Pulse 97; Resp 17; Temp 99.1(O); Pulse Ox 100% on 100% BiPAP; Weight 52.16 ld1 kg; Height 6 ft. 0 in. (182.88 cm); Pain 7/10; 20:49 BP 130 / 99; Pulse 79; Resp 29; Pulse Ox 100% on 40% BiPAP; ld1 21:16 BP 138 / 77; Pulse 80; Resp 33; Pulse Ox 99% on 40% BiPAP; ld1 02/04 00:11 BP 142 / 55; Pulse 75; Resp 26; Pulse Ox 96% on R/A; ld1 02/03 20:08 Body Mass Index 15.60 (52.16 kg, 182.88 cm) ld1 MDM: 02/03 19:37 Patient medically screened. kb 22:41 Data reviewed: vital signs, nurses notes. Data interpreted: Pulse oximetry: on room air kb is 88 %. Interpretation: hypoxia. Plan: O2 by Mask applied. Counseling: I had a detailed discussion with the patient and/or guardian regarding: the historical points, exam findings, and any diagnostic results supporting the discharge/admit diagnosis, lab results, radiology results, the need for further work-up and treatment in the hospital. Physician consultation: Heath MATA regarding admission, to the telemetry unit. patient's condition, and will see patient in ED. ED course: Pt reports he is breathing much better with bipap. Pt appears more comfortable now. 02/03 19:43 Order name: BMP 02/03 19:43 Order name: Blood Culture Adult (2) 02/03 19:43 Order name: C-Reactive Protein kb 02/03 19:43 Order name: CBC with Diff 02/03 19:43 Order name: D-Dimer 02/03 19:43 Order name: Ferritin; Complete Time: 21:16 kb 02/03 19:43 Order name: LFT's; Complete Time: 21:16 kb 02/03 19:43 Order name: Lactate; Complete Time: 20:31 kb 02/03 19:43 Order name: Lipase; Complete Time: 21:16 kb 02/03 19:43 Order name: PT-INR; Complete Time: 20:31 kb 02/03 19:43 Order name: Procalcitonin; Complete Time: 20:53 kb 02/03 19:43 Order name: Ptt, Activated; Complete Time: 20:31 kb 02/03 19:43 Order name: Troponin (emerg Dept Use Only); Complete Time: 21:16 kb 02/03 19:43 Order name: Basic Metabolic Panel; Complete Time: 21:16 EDMS 02/03 19:43 Order name: Blood Culture EDMS 02/03 19:43 Order name: C-Reactive Protein; Complete Time: 21:16 EDMS 02/03 19:43 Order name: CBC with Automated Diff; Complete Time: 20:24 EDMS 02/03 19:43 Order name: D-Dimer; Complete Time: 20:31 EDMS 02/03 21:27 Order name: SARS-COV-2 RT PCR; Complete Time: 21:28 EDMS 02/04 05:38 Order name: Comprehensive Metabolic Panel EDMS 02/04 05:38 Order name: Comprehensive Metabolic Panel EDMS 02/04 05:38 Order name: Comprehensive Metabolic Panel EDMS 02/04 05:38 Order name: Comprehensive Metabolic Panel EDMS 02/04 05:38 Order name: Comprehensive Metabolic Panel EDMS 02/04 05:38 Order name: C-Reactive Protein EDMS 02/04 05:38 Order name: C-Reactive Protein EDMS 02/04 05:38 Order name: C-Reactive Protein EDMS 02/04 05:38 Order name: C-Reactive Protein EDMS 02/04 05:38 Order name: C-Reactive Protein EDMS 02/04 05:39 Order name: Comprehensive Metabolic Panel EDMS 02/04 05:39 Order name: D-Dimer EDMS 02/04 05:39 Order name: D-Dimer EDMS 02/04 05:39 Order name: D-Dimer EDMS 02/04 05:39 Order name: D-Dimer EDMS 02/04 05:39 Order name: D-Dimer EDMS 02/04 05:39 Order name: Ferritin EDMS 02/04 05:39 Order name: Ferritin EDMS 02/04 05:39 Order name: Ferritin EDMS 02/04 05:39 Order name: Ferritin EDMS 02/04 05:39 Order name: Ferritin EDMS 02/04 05:39 Order name: Lipid Profile EDMS 02/04 05:39 Order name: Urinalysis EDMS 02/04 05:39 Order name: CBC with Automated Diff EDMS 02/04 05:39 Order name: CBC with Automated Diff EDMS 02/04 05:39 Order name: CBC with Automated Diff EDMS 02/04 05:39 Order name: CBC with Automated Diff EDMS 02/04 05:39 Order name: CBC with Automated Diff EDMS 02/04 05:39 Order name: CBC with Automated Diff EDMS 02/04 05:39 Order name: Lipid Profile EDMS 02/04 05:39 Order name: Magnesium EDMS 02/04 05:39 Order name: Magnesium EDMS 02/04 05:39 Order name: Magnesium EDMS 02/04 05:39 Order name: Magnesium EDMS 02/04 05:39 Order name: Magnesium EDMS 02/04 05:39 Order name: Magnesium EDMS 02/04 05:39 Order name: T4 Free EDMS 02/04 05:39 Order name: T4 Free EDMS 02/04 05:39 Order name: Thyroid Stimulating Hormone EDMS 02/04 05:39 Order name: Thyroid Stimulating Hormone EDMS 02/04 05:39 Order name: ABG Arterial Blood Gas EDMS 02/04 05:39 Order name: ABG Arterial Blood Gas EDMS 02/03 19:43 Order name: EKG; Complete Time: 19:44 kb 02/03 19:43 Order name: Cardiac monitoring; Complete Time: 19:52 kb 02/03 19:43 Order name: Droplet/Contact Precautions; Complete Time: 19:52 kb 02/03 19:43 Order name: EKG - Nurse/Tech; Complete Time: 19:52 kb 02/03 19:43 Order name: IV Start; Complete Time: 19:52 kb 02/03 19:43 Order name: Labs collected and sent; Complete Time: 19:52 kb 02/03 19:43 Order name: O2 Per Protocol; Complete Time: 19:52 kb 02/03 19:43 Order name: O2 Sat Monitoring; Complete Time: 19:52 kb 02/03 19:43 Order name: Chest Single View XRAY; Complete Time: 20:31 kb 02/03 21:17 Order name: CT Chest For PE Angio kb 02/04 05:38 Order name: CONS Physician Consult [facility] 02/04 05:38 Order name: Heart Healthy EDPR 02/04 05:39 Order name: Respiratory Therapy Consult EDPR Administered Medications: 20:00 Drug: SOLU-Medrol (methylPrednisoLONE) 125 mg Route: IVP; Site: right forearm; ld1 20:50 Drug: Ativan (LORazepam) 0.5 mg Route: IVP; Site: right forearm; ld1 Disposition: 02/05 07:19 Co-signature as Attending Physician, Cristóbal Fletcher MD I agree with the assessment and blas plan of care. Disposition Summary: 02/03/21 21:58 Hospitalization Ordered Hospitalization Status: Inpatient Admission kb Provider: Franco Hearn Condition: Stable kb Problem: new kb Symptoms: are unchanged kb Bed/Room Type: Standard kb Location: Telemetry/MedSurg (Inpatient)(02/04/21 09:36) Room Assignment: 425(02/04/21 09:55) bd Diagnosis - Coronavirus infection, unspecified kb - Hypoxia kb Forms: - Medication Reconciliation Form kb - SBAR form kb Signatures: Dispatcher [employer] [facility] Cande Roldan FNP-C FNP-May Dye Judith Pacheco RN RN Cristóbal Pierre MD MD cha Smirch, Shelby, RN RN Heath Bass FNP-C FNP-Milagros Penn RN RN ld1 Gwendolyn Reardon RN RN bs2 Corrections: (The following items were deleted from the chart) 02/03 20:20 19:44 [facility] 21[facility]58 Tele[facility]/MedSurg (Inpatient) kb 22:19 21:58 kb 02/04 05:38 02/03 19:44 BiPap ([employer] Only)+RC.RAD.BRZ ordered. EDPR EDPR 02/04 09:36 02/03 22:19 [facility] ER HOLD [facility] 02/04 09:36 02/03 22:19 ERHOLD- mw ss 08/18 09:55 09:36 427 ss bd
--- NOTE | 2021-02-03 22:40 | P.HP ---
Certification for Inpatient Patient admitted to: Inpatient With expected LOS: >2 Midnights Patient will require the following post-hospital care: None Practitioner: I am a practitioner with admitting privileges, knowledge of patient current condition, hospital course, and medical plan of care. Services: Services provided to patient in accordance with Admission requirements found in Title 42 Section 412.3 of the Code of Federal Regulations Patient History Date of Service: 02/03/21 Reason for admission: COVID-19 pneumonia History of Present Illness: 80-year-old male with history of COPD, hypertension presents emergency department for shortness of breath. Patient reports increasing shortness of breath over the course of last few days, was 88% on room air. Patient was placed on nonrebreather but was tachypneic/dyspneic and was subsequently placed on BiPAP. Patient further evaluated in the emergency department labs were significant for platelet count 105 D-dimer 820 chemistry BUN 26 ferritin 596 alk phos 144 C-reactive protein 32.4 Covid positive chest x-ray with emphysema without superimposed acute process right upper lobe lesion concerning for neoplasm, CT chest pending. Patient currently comfortable on BiPAP, patient not vaccinated. Allergies No Known Allergies Allergy (Verified 05/05/18 17:36) Home Medications: EPINEPHrine [Primatene Mist] 1 aer IH PRN 12/18/20 Naproxen Sod/Diphenhydram HCl [Aleve Pm Caplet] 4 tab PO BEDTIME 12/18/20 - Past Medical/Surgical History Diabetic: No -: COPD -: CVA -: Hypertension -: None Psychosocial/ Personal History: Lives at home with his son - Family History Mother -: Heart disease, Cancer Father -: Heart disease, Cancer - Social History Smoking Status: Former smoker Alcohol use: No CD- Drugs: No Caffeine use: Yes Place of Residence: Home Review of Systems 10-point ROS is otherwise unremarkable Respiratory: Cough, Dry, Shortness of Breath, SOB with Excertion Physical Examination - Physical Exam General: Alert, In no apparent distress, Oriented x3 HEENT: Atraumatic, PERRLA, Mucous membr. moist/pink, EOMI, Sclerae nonicteric Neck: Supple, 2+ carotid pulse no bruit, No LAD, Without JVD or thyroid abnormality Respiratory: Diminished, Other (Tachypnea, dyspnea, on BiPAP) Cardiovascular: Regular rate/rhythm, Normal S1 S2 Gastrointestinal: Normal bowel sounds, No tenderness Musculoskeletal: No tenderness Integumentary: No rashes Neurological: Normal speech, Normal strength at 5/5 x4 extr, Normal tone, Normal affect Lymphatics: No axilla or inguinal lymphadenopathy - Studies Laboratory Data (last 24 hrs) 02/03/21 19:56: PT 11.1, INR 0.97, APTT 31.0 02/03/21 19:56: WBC 7.30, Hgb 14.3, Hct 43.7, Plt Count 105 L 02/03/21 19:56: Sodium 142, Potassium 3.6, BUN 26 H, Creatinine 0.83, Glucose 92, Total Bilirubin 0.5, AST 19, ALT 15, Alkaline Phosphatase 144 H, Lipase 146 Assessment and Plan - Plan Assessment: Acute hypoxic respiratory failure secondary to COVID-19 pneumonia complicated with history of COPD Hypertension Plan: Acute hypoxic respiratory failure secondary to COVID-19 pneumonia complicated with history of COPD: Continue with IV steroids, oral supplements, ivermectin. Patient would not qualify for baricitinib at this time given low CRP level. Supplemental oxygen as needed, BiPAP as needed. CT chest pending to evaluate abnormality on right upper lobe/chest x-ray. Pulmonology consulted, daily CRP/ferritin levels. Hypertension: Continue medications, adjust as necessary. DVT PPX: Lovenox, aspirin Code status: Full Discharge Plan: Home Plan to discharge in: Greater than 2 days - Advance Directives Does patient have a Living Will: No Does patient have a Durable POA for Healthcare: No - Code Status/Comfort Care Code Status Assessed: Yes (Full code) Critical Care: No Time Spent Managing Pts Care (In Minutes): 55
[2021-02-04] MEDS ORDERED: ONDANSETRON 4 MG/2 ML VIAL IV PRN (05:37)
--- NOTE | 2021-02-04 06:33 | P.PN ---
Subjective Date of Service: 02/04/21 Chief Complaint: COVID-19 pneumonia Subjective: No new changes (feels ok, breathing slightly better now that he is on oxygen supplementation) Review of Systems 10-point ROS is otherwise unremarkable Physical Examination - Studies Laboratory Data (last 24 hrs) 02/03/21 19:56: PT 11.1, INR 0.97, APTT 31.0 02/03/21 19:56: WBC 7.30, Hgb 14.3, Hct 43.7, Plt Count 105 L 02/03/21 19:56: Sodium 142, Potassium 3.6, BUN 26 H, Creatinine 0.83, Glucose 92, Total Bilirubin 0.5, AST 19, ALT 15, Alkaline Phosphatase 144 H, Lipase 146 Assessment & Plan Physician Review Additional Text: Physical Exam General: Alert, In no apparent distress, Oriented x3 HEENT: normal conjunctiva, sclera anicteric Respiratory: tachypnea, on 3L NC Cardiovascular: Regular rate/rhythm, Normal S1 S2 Gastrointestinal: soft, nontender, nondistended Musculoskeletal: No joint tenderness Integumentary: No rashes Problem List Acute hypoxic respiratory failure secondary to COVID-19 pneumonia complicated with history of COPD Hypertension possible new Lung malignancy Continue treatment per Covid protocol Continue IV steroids, vitamin supplementation, ivermectin Does not qualify for baricitinib given low CRP CT with concern for malignancy of lung Pulmonology consulted Dispo: anticipate dc home in ~1-2 days Time Spent Managing Pts Care (In Minutes): 35
[2021-02-04 06:47] LABS: Blood Gas Oxyhemoglobin 95.5 % (94-97); Blood O2 Saturation 97.4 % (92-98.5)
[2021-02-04 07:46] LABS: Absolute Lymphocytes (CBC) 0.5 K/uL (0.7-4.9); Basophils % 0.1 % (0-1.3); Hematocrit 41.5 % (39.6-49.0); Lymphocytes % 12.2 % (15.3-44.8); MPV 8.7 fL (7.6-11.3); RBC Red Blood Cell Count 4.41 M/uL (4.33-5.43)
[2021-02-04] MEDS ORDERED: ASCORBIC ACID 500 MG TABLET ONE (07:58)
[2021-02-04] MEDS ORDERED: ASPIRIN EC 81 MG TAB PO ONE (07:59)
[2021-02-04] MEDS ORDERED: THIAMINE HCL 100 MG TABLET ONE (07:59)
[2021-02-04] MEDS ORDERED: ZINC SULFATE 220 MG CAP ONE (07:59)
[2021-02-04] MEDS ORDERED: ENOXAPARIN 40 MG/0.4 ML SQ ONE (08:00)
[2021-02-04] MEDS ORDERED: VITAMIN D 1000 UNIT TAB ONE (08:00)
[2021-02-04 08:07] LABS: ALT/SGPT 14 U/L (12-78); AST/SGOT 15 U/L (15-37); Albumin 2.9 g/dL (3.4-5.0); Alkaline Phosphatase 134 U/L (45-117); BUN Blood Urea Nitrogen 26 mg/dL (7-18); Bicarbonate 34 mmol/L (21-32); Bilirubin Total 0.4 mg/dL (0.2-1.0); Ferritin 553.2 ng/mL (26-388); Glucose Level 122 mg/dL (74-106); HDL Cholesterol 61 mg/dL (40-60); LDL Cholesterol, Calculated 80 (<130); Magnesium 1.9 mg/dL (1.8-2.4); Potassium 4.1 mmol/L (3.5-5.1); Protein, Total 6.1 g/dL (6.4-8.2); Sodium Level 142 mmol/L (136-145); Thyroid Stimulating Hormone 0.674 uIU/mL (0.360-3.740)
[2021-02-04] MEDS: METHYLPREDNISOLONE 40 MG INJ IV SCH ×2 (09:41→20:36)
[2021-02-04] MEDS: ASPIRIN EC 81 MG TAB PO SCH (09:41)
[2021-02-04] MEDS: ZINC SULFATE 220 MG CAP PO SCH (09:41)
[2021-02-04] MEDS: ENOXAPARIN 40 MG/0.4 ML SQ SCH (09:41)
[2021-02-04] MEDS: VITAMIN D 1000 UNIT TAB PO SCH (09:41)
[2021-02-04] MEDS: THIAMINE HCL 100 MG TABLET PO SCH (09:41)
[2021-02-04] MEDS: ASCORBIC ACID 500 MG TABLET PO SCH ×4 (09:41→20:36)
[2021-02-04] MEDS ORDERED: METHYLPREDNISOLONE 125 MG INJ ONE (09:54)
--- NOTE | 2021-02-04 11:07 | RAD REPORT ---
EXAM DESCRIPTION: CT - Chest For Pe Angio - 02/04/2021 2:11 am CLINICAL HISTORY: DYSPNEA COMPARISON: None Available. TECHNIQUE: CTA of the chest obtained following the uncomplicated intravenous administration of iodin ated contrast. 3-D/MIP reformatted images of the chest available for evaluation. This exam was perfor med according to our departmental dose-optimization program, which includes automated exposure contro l, adjustment of the mA and/or kV according to patient size and/or use of iterative reconstruction te [place]nique. FINDINGS: Chest: Pulmonary arteries: Contrast bolus is adequate.No filling defects identified in the pulmonary arterie s to suggest pulmonary embolus. Thyroid: No abnormalities of the visualized thyroid. Great Vessels: Great vessels have normal anatomic configuration. Thoracic Aorta: No abnormalities of the thoracic aorta identified. Heart: Coronary artery atherosclerosis. No cardiomegaly or significant pericardial effusion Lymph Nodes: No enlarged mediastinal lymph nodes identified. Esophagus: No abnormalities of the esophagus identified. Other: No additional findings. Lungs: Severe centrilobular emphysematous change. Right upper lobe spiculated mass measuring 3.7 x 2. 5 cm. There is a second solid spiculated pulmonary nodule in the right lower lobe measuring 1.2 x 0.9 cm. No confluent airspace consolidation. Pleura: No pleural effusion or pneumothorax. Trachea/Airways: No abnormalities of the visualized trachea or airways. Bones: Osteopenia. Endplate spondylosis and facet arthropathy. Healing left rib fractures. Upper Abdomen: Limited images of the upper abdomen demonstrate no abnormalities visualized spleen. Hy podensities in the liver are incompletely evaluated on this study. IMPRESSION: 1. No pulmonary embolus. 2. Right upper lobe spiculated mass measuring 3.7 x 2.5 cm. There is a second solid spiculated pulm onary nodule in the right lower lobe measuring 1.2 x 0.9 cm. Findings are concerning for malignancy. Tissue sampling and/or CT recommended. 3. Severe centrilobular emphysematous change. 4. Coronary artery atherosclerosis. 5. Hypodensities in the liver are incompletely evaluated on this study. Multiphase CT of the abdome n recommended. Electronically signed by: Manuel Bolanos 02/04/2021 12:31 AM CDT Due to temporary technical issues with the PACS/Fluency reporting system, reports are being signed by the in house radiologist without review as a courtesy to ensure prompt reporting. The interpreting r adiologist is fully responsible for the content of the report.
--- NOTE | 2021-02-04 16:27 | EKG ---
Test Date: 2021-02-03 Test Time: 19:47:38 Manager Collection: DREW MEASUREMENT RESULTS: Intervals: Rate: 96 IL: 122 QRSD: 72 QT: 362 QTc: 457 [place]: P: 94 IL: 122 QRS: 73 T: 79 INTERPRETIVE STATEMENTS: Sinus rhythm with premature supraventricular complexes Right atrial enlargement Septal infarct, age undetermined Abnormal ECG Compared to ECG 12/18/2020 11:26:16 Atrial premature complex(es) now present Atrial abnormality now present Myocardial infarct finding now present Atrial fibrillation no longer present Left ventricular hypertrophy no longer present Electronically Signed On 02-04-21 16:24:04 CDT by Neil Prater
[2021-02-04] MEDS: MELATONIN 5 MG TABLET PO PRN (20:36)
--- NOTE | 2021-02-04 21:20 | P.CNS ---
Date of Consult: 02/04/21 Reason for Consult: COVID penumonia Chief Complaint: COVID-19 pneumonia History of Present Illness: AGe 80 COPD and HTNAW COVID penumonia/ Allergies No Known Allergies Allergy (Verified 05/05/18 17:36) Home Medications: EPINEPHrine [Primatene Mist] 1 puff IH PRN 12/18/20 Naproxen Sod/Diphenhydram HCl [Aleve Pm Caplet] 1 tab PO BEDTIME PRN 12/18/20 - Past Medical/Surgical History Diabetic: No -: COPD -: CVA -: Hypertension -: None Psychosocial/ Personal History: Lives at home with his son - Family History Mother Medical History: Heart disease, Cancer Father Medical History: Heart disease, Cancer - Social History Smoking Status: Current every day smoker Alcohol use: Yes CD- Drugs: No Caffeine use: Yes Place of Residence: Home Review of Systems General: Weakness Respiratory: Shortness of Breath Physical Examination Temp Pulse Resp BP Pulse Ox 98.5 F 76 20 158/70 H 100 02/04/21 16:00 02/04/21 16:00 02/04/21 16:00 02/04/21 16:00 02/04/21 16:00 General: Alert, Oriented x3, Cooperative - Problems (1) COPD with acute exacerbation Current Visit: No Status: Acute Plan: aGE 80 AW COPD exacerbation and RUL lung mass likley cancer/COPD changes on CT/ Doubt COVID penumonia/ poss DC am on pred 20 BID for 10 days and Advair or equivalent inhaler/ Hypercapnea (2) Lung mass Current Visit: No Status: Acute Plan: likley lung cancer with intrapulm mets?HERNANDEZ as outpt/ pet scan and PFT LAkphos is elevated bony VS Liver mets
[2021-02-04] MEDS: ARFORMOTEROL TARTRATE 15 MCG/2 ML VIAL.NEB NEB SCH (22:19)
[2021-02-05] MEDS: IPRATROPIUM BROM 0.5MG/2.5ML NEB SCH ×4 (02:00→19:24)
[2021-02-05 04:17] LABS: Absolute Lymphocytes (CBC) 0.5 K/uL (0.7-4.9); Basophils % 0.1 % (0-1.3); Hematocrit 40.2 % (39.6-49.0); MPV 8.4 fL (7.6-11.3); RBC Red Blood Cell Count 4.26 M/uL (4.33-5.43)
[2021-02-05 04:38] LABS: ALT/SGPT 15 U/L (12-78); AST/SGOT 13 U/L (15-37); Albumin 2.8 g/dL (3.4-5.0); Alkaline Phosphatase 120 U/L (45-117); BUN Blood Urea Nitrogen 29 mg/dL (7-18); Bicarbonate 37 mmol/L (21-32); Bilirubin Total 0.3 mg/dL (0.2-1.0); Ferritin 451.2 ng/mL (26-388); Glucose Level 136 mg/dL (74-106); Magnesium 1.9 mg/dL (1.8-2.4); Potassium 4.4 mmol/L (3.5-5.1); Protein, Total 5.8 g/dL (6.4-8.2); Sodium Level 143 mmol/L (136-145)
[2021-02-05 05:04] LABS: Blood Morphology Comment NOT SEEN (NOT SEEN); Platelet Estimate ADEQ
[2021-02-05] MEDS: ARFORMOTEROL TARTRATE 15 MCG/2 ML VIAL.NEB NEB SCH ×2 (08:00→19:24)
[2021-02-05] MEDS: VITAMIN D 1000 UNIT TAB PO SCH (08:07)
[2021-02-05] MEDS: ASPIRIN EC 81 MG TAB PO SCH (08:07)
[2021-02-05] MEDS: IVERMECTIN 3 MG TABLET PO SCH (08:07)
[2021-02-05] MEDS: THIAMINE HCL 100 MG TABLET PO SCH (08:08)
[2021-02-05] MEDS: ZINC SULFATE 220 MG CAP PO SCH (08:08)
[2021-02-05] MEDS: ASCORBIC ACID 500 MG TABLET PO SCH ×4 (08:08→20:37)
[2021-02-05] MEDS: METHYLPREDNISOLONE 40 MG INJ IV SCH ×2 (08:10→20:40)
[2021-02-05] MEDS: ENOXAPARIN 40 MG/0.4 ML SQ SCH (08:11)
--- NOTE | 2021-02-05 14:50 | P.PN ---
Subjective Date of Service: 02/05/21 Chief Complaint: COVID-19 pneumonia Subjective: No new changes (Patient feels about the same. May be is is breathing a little bit more comfortably. Requiring 3 L nasal cannula. White count increased, and inflammatory markers slightly decreased. Reports gen eralized weakness, does not feel like he can walk. States he walks with a walker at home.) Review of Systems 10-point ROS is otherwise unremarkable Physical Examination - Vital Signs Temperature: 98.8 F Blood Pressure: 157/73 Pulse: 74 Respirations: 22 Pulse Ox (%): 96 Assessment & Plan Physician Review Additional Text: Physical Exam General: Alert, Oriented x3, fatigued appearing HEENT: normal conjunctiva, sclera anicteric Respiratory: mild tachypnea, on 3L NC Cardiovascular: Regular rate/rhythm, Normal S1 S2 Gastrointestinal: soft, nontender, nondistended Musculoskeletal: No joint tenderness Neuro: generalized weakness Problem List Acute hypoxic respiratory failure secondary to COVID-19 pneumonia complicated with history of COPD Hypertension possible new Lung malignancy Continue treatment per Covid protocol Continue IV steroids, vitamin supplementation, ivermectin Does not qualify for baricitinib given low CRP CT with concern for malignancy of lung - patient informed Pulmonology consulted Imaging with minimal/mild COVID Pneumonia. Hypoxia seems to be more due to COPD, questionable if this lung mass is playing a role as well pt reports significant weakness, not feels that he can ambulate. He has not gotten out of bed the last 2 days. PT consulted Patient states he ambulates with walker at home. Dispo: anticipate dc home tomorrow with home o2 lives with son Time Spent Managing Pts Care (In Minutes): 35
[2021-02-05] MEDS: ENSURE ENLIVE 237 ML CAN PO SCH ×2 (16:15→20:40)
[2021-02-05] MEDS: MELATONIN 5 MG TABLET PO PRN (20:39)
[2021-02-06] MEDS: IPRATROPIUM BROM 0.5MG/2.5ML NEB SCH ×4 (01:14→19:38)
[2021-02-06 06:32] LABS: Absolute Lymphocytes (CBC) 0.6 K/uL (0.7-4.9); Basophils % 0.1 % (0-1.3); Hematocrit 43.3 % (39.6-49.0); Lymphocytes % 3.8 % (15.3-44.8); MPV 8.3 fL (7.6-11.3); RBC Red Blood Cell Count 4.59 M/uL (4.33-5.43)
[2021-02-06 07:04] LABS: ALT/SGPT 15 U/L (12-78); AST/SGOT 13 U/L (15-37); Alkaline Phosphatase 120 U/L (45-117); BUN Blood Urea Nitrogen 30 mg/dL (7-18); Bicarbonate 40 mmol/L (21-32); Bilirubin Total 0.3 mg/dL (0.2-1.0); Ferritin 416.2 ng/mL (26-388); Glucose Level 121 mg/dL (74-106); Magnesium 2.1 mg/dL (1.8-2.4); Potassium 4.1 mmol/L (3.5-5.1); Protein, Total 6.5 g/dL (6.4-8.2); Sodium Level 143 mmol/L (136-145)
--- NOTE | 2021-02-06 07:45 | RAD REPORT ---
EXAM DESCRIPTION: RAD - Chest Single View - 02/06/2021 5:15 am CLINICAL HISTORY: COVID, hypoxia, f/u mass COMPARISON: CT chest February 03, portable chest February 03 TECHNIQUE: AP portable chest image was obtained 02/06/2021 5:15 am . FINDINGS: Baseline advanced COPD noted. Spiculated lateral right apex mass is again noted. Scattered interstitial and alveolar opacities are present not differ from baseline COPD and not clearly differ ent from comparison. There may be slight worsening of lateral right base opacification. Heart and vasculature are normal. No measurable pleural effusion and no pneumothorax. No acute bony a bnormality seen. No acute aortic findings suspected. IMPRESSION: Advanced COPD changes are present with little or no change to the lung parenchyma. There is a questionable increase in lung parenchymal opacification in the lateral right base. This is a minimal finding and can be monitored on subsequent imaging. Spiculated mass in the right upper lung field again noted.
[2021-02-06] MEDS: ARFORMOTEROL TARTRATE 15 MCG/2 ML VIAL.NEB NEB SCH ×2 (08:49→19:38)
[2021-02-06] MEDS: METHYLPREDNISOLONE 40 MG INJ IV SCH (09:00)
[2021-02-06] MEDS: ZINC SULFATE 220 MG CAP PO SCH (09:00)
[2021-02-06] MEDS: VITAMIN D 1000 UNIT TAB PO SCH (09:00)
[2021-02-06] MEDS: ENOXAPARIN 40 MG/0.4 ML SQ SCH (09:00)
[2021-02-06] MEDS: THIAMINE HCL 100 MG TABLET PO SCH (09:00)
[2021-02-06] MEDS: ASPIRIN EC 81 MG TAB PO SCH ×2 (09:00→12:58)
[2021-02-06] MEDS: ASCORBIC ACID 500 MG TABLET PO SCH ×4 (09:00→21:04)
[2021-02-06] MEDS: ENSURE ENLIVE 237 ML CAN PO SCH ×3 (09:00→21:07)
--- NOTE | 2021-02-06 15:59 | P.PN ---
Subjective Date of Service: 02/06/21 Chief Complaint: COVID-19 pneumonia Subjective: Improving (Feels slight improvement, breathing okay on 2-3 L. Reports significant weakness generally states unable to care for himself. Son helps, but works 12-hour a day. Evaluated by PT recommends placement) Review of Systems 10-point ROS is otherwise unremarkable Physical Examination - Vital Signs Temperature: 98.1 F Blood Pressure: 149/94 Pulse: 58 Respirations: 20 Pulse Ox (%): 95 Assessment & Plan Physician Review Additional Text: Physical Exam General: Alert, Oriented x3, fatigued, cachectic HEENT: normal conjunctiva, sclera anicteric Respiratory: mild tachypnea, on 3L NC Cardiovascular: Regular rate/rhythm, Normal S1 S2 Gastrointestinal: soft, nontender, nondistended Musculoskeletal: No joint tenderness Neuro: generalized weakness Problem List Acute hypoxic respiratory failure secondary to COVID-19 pneumonia complicated with history of COPD Hypertension possible new Lung malignancy, with possible liver mets Continue treatment per Covid protocol Continue IV steroids, vitamin supplementation, ivermectin Decrease dose of steroids Does not qualify for baricitinib given low CRP CT with concern for malignancy of lung - patient informed Pulmonology consulted Imaging with minimal/mild COVID Pneumonia. Hypoxia seems to be more due to COPD, questionable if this lung mass is playing a role as well pt reports significant weakness, feels that he can't ambulate. He has not gotten out of bed the last 2 days. PT consulted Patient states he ambulates with walker at home. Dispo: possible placement, director social welfare consulted, unsure of patient's benefits at this time lives with son Time Spent Managing Pts Care (In Minutes): 40
--- NOTE | 2021-02-06 17:15 | RAD REPORT ---
EXAM DESCRIPTION: CT - Abdomen Pelvis W Contrast - 02/06/2021 4:39 pm CLINICAL HISTORY: Abdominal pain COMPARISON: none. TECHNIQUE: Computed axial tomography of the abdomen pelvis was obtained. 100 cc Isovue-300 was admin istered intravenously. Oral contrast was not requested which limits evaluation of bowel. All CT scans are performed using dose optimization technique as appropriate and may include automated exposure control or mA/KV adjustment according to patient size. FINDINGS: The liver contains several cysts which vary in size from 5-10 millimeters. There are sever al additional tiny low-density hepatic lesions. The spleen, pancreas are unremarkable A 17 millimeter right adrenal mass. 17 millimeter left adrenal mass. There is no evidence of diverticulitis Mild to moderate reticular opacities right lower lobe. 4 millimeter right middle lobe nodule IMPRESSION: Several hepatic cysts. Several additional tiny low-density lesions within the liver are too small to characterize by CT criteria. These probably represent cysts. However, early metastatic d isease has a similar appearance. Followup ultrasound in 2 months would be helpful for re-evaluation. Bilateral 17 millimeter adrenal masses may represent metastases or adenomas. Further evaluation with MRI may be helpful Mild to moderate reticular opacities right lower lobe may indicate an atypical pneumonia 4 millimeter right middle lobe nodule may represent a metastasis or a granuloma
[2021-02-06] MEDS: predniSONE 20 MG TAB PO SCH (21:04)
[2021-02-07] MEDS: IPRATROPIUM BROM 0.5MG/2.5ML NEB SCH ×4 (01:24→20:08)
--- NOTE | 2021-02-07 06:26 | P.PN ---
Subjective Date of Service: 02/07/21 Chief Complaint: COVID-19 pneumonia Subjective: No new changes (Feels about the same, still short of breath, but maintaining oxygen saturation greater than 90% on 2-3 L nasal cannula. Has not gotten out of bed. Feels generalized weakness, did not participate with PT yesterday due to not feeling well. Not much appetite) Review of Systems 10-point ROS is otherwise unremarkable Physical Examination - Vital Signs Temperature: 98.3 F Blood Pressure: 155/73 Pulse: 69 Respirations: 19 Pulse Ox (%): 92 Assessment & Plan Physician Review Additional Text: Physical Exam General: Alert, Oriented x3, fatigued, cachectic HEENT: normal conjunctiva, sclera anicteric Respiratory: mild tachypnea/labored respirations on 2L NC Cardiovascular: Regular rate/rhythm, Normal S1 S2 Gastrointestinal: soft, nontender, nondistended Musculoskeletal: No joint tenderness Neuro: generalized weakness Problem List Acute hypoxic respiratory failure secondary to COVID-19 pneumonia complicated with history of COPD Hypertension possible new Lung malignancy, with possible liver mets Continue treatment per Covid protocol Continue steroids, vitamin supplementation, ivermectin Decrease dose of steroids Does not qualify for baricitinib given low CRP CT with concern for malignancy of lung - patient informed CT abdomen/pelvis obtained on 02/06, multiple small liver cysts, possibility of early metastasis. Patient informed Pulmonology consulted Imaging with minimal/mild COVID Pneumonia. Hypoxia seems to be more due to COPD, questionable if this lung mass is playing a role as well pt reports significant weakness, feels that he can't ambulate. He has not gotten out of bed the last 3-4 days. PT consulted Patient states he was ambulating with walker at home. States only a few steps at a time. Reports his very weak and concerned he cannot go home safely. He lives with his son, her son works 12 hours a day most days [facility] for hypertension Dispo: possible placement, social work specialist consulted, unsure of patient's benefits at this time lives with son Time Spent Managing Pts Care (In Minutes): 40
[2021-02-07 06:36] LABS: Absolute Lymphocytes (CBC) 0.6 K/uL (0.7-4.9); Basophils % 0.1 % (0-1.3); Hematocrit 40.5 % (39.6-49.0); Lymphocytes % 4.2 % (15.3-44.8); MPV 8.4 fL (7.6-11.3); RBC Red Blood Cell Count 4.31 M/uL (4.33-5.43)
[2021-02-07 07:03] LABS: ALT/SGPT 15 U/L (12-78); AST/SGOT 14 U/L (15-37); Albumin 2.9 g/dL (3.4-5.0); Alkaline Phosphatase 104 U/L (45-117); BUN Blood Urea Nitrogen 28 mg/dL (7-18); Bicarbonate 39 mmol/L (21-32); Bilirubin Total 0.3 mg/dL (0.2-1.0); Glucose Level 100 mg/dL (74-106); Potassium 4.2 mmol/L (3.5-5.1); Protein, Total 6.2 g/dL (6.4-8.2); Sodium Level 143 mmol/L (136-145)
[2021-02-07 07:06] LABS: Ferritin 380.3 ng/mL (26-388)
[2021-02-07] MEDS: ARFORMOTEROL TARTRATE 15 MCG/2 ML VIAL.NEB NEB SCH ×2 (07:55→20:08)
[2021-02-07] MEDS: ENOXAPARIN 40 MG/0.4 ML SQ SCH (09:00)
[2021-02-07] MEDS: ENSURE ENLIVE 237 ML CAN PO SCH ×3 (09:00→21:42)
[2021-02-07] MEDS: IVERMECTIN 3 MG TABLET PO SCH (10:09)
[2021-02-07] MEDS: THIAMINE HCL 100 MG TABLET PO SCH (10:09)
[2021-02-07] MEDS: VITAMIN D 1000 UNIT TAB PO SCH (10:09)
[2021-02-07] MEDS: ASCORBIC ACID 500 MG TABLET PO SCH ×4 (10:10→21:41)
[2021-02-07] MEDS: predniSONE 20 MG TAB PO SCH ×2 (10:10→21:41)
[2021-02-07] MEDS: ASPIRIN EC 81 MG TAB PO SCH (10:10)
[2021-02-07] MEDS: ZINC SULFATE 220 MG CAP PO SCH (10:10)
[2021-02-07] MEDS ORDERED: AMLODIPINE 5 MG TAB PO SCH (12:30)
[2021-02-07] MEDS: BENZONATATE 100 MG CAP PO PRN ×3 (13:07→21:41)
[2021-02-07] MEDS ORDERED: METOPROLOL TARTRATE 5 MG/5 ML INJ IV STA ×5 (13:57→22:41)
[2021-02-07] MEDS ORDERED: NA CHLORIDE 0.9% 250 ML IV PRN (14:18)
[2021-02-07] MEDS: METOPROLOL TAR 25 MG TAB PO SCH (17:06)
[2021-02-07] MEDS ORDERED: DIGOXIN 0.25 MG/ML AMP IV ONE (21:27)
--- NOTE | 2021-02-07 21:37 | P.PN ---
Date of Service: 02/07/21 Patient again with tachyarrhythmia with rate around 150-160, EKG obtained demonstrates rate of around 145 with 2-1 atrial flutter. Blood pressure stable this time patient was given Lopressor 5 mg IV x1, rate still refractory around 155 we will try digoxin 0.5 IV and additional Lopressor IV. Patient may require amiodarone drip if rate cannot be controlled. Will discuss case with cardiology.
[2021-02-07] MEDS: ENOXAPARIN 60 MG/0.6 ML SQ SCH (21:40)
[2021-02-07] MEDS ORDERED: METOPROLOL TARTRATE 5 MG/5 ML INJ IV ONE ×3 (21:40→23:08)
[2021-02-07] MEDS: MELATONIN 5 MG TABLET PO PRN (21:41)
[2021-02-07] MEDS ORDERED: DIGOXIN 0.25 MG/ML AMP ONE (21:59)
[2021-02-07] MEDS ORDERED: Magnesium Sulfate 2gm IVPB 2 G/50 ML BAG IV ONE (22:31)
[2021-02-08] MEDS ORDERED: AMIODARONE HCL 150 MG in D5W 100 ML IV STA (00:40)
[2021-02-08] MEDS ORDERED: AMIODARONE IN DEXTROSE,ISO-OSM 360 MG/200 ML BAG IV SCH (01:00)
[2021-02-08] MEDS: IPRATROPIUM BROM 0.5MG/2.5ML NEB SCH ×4 (01:53→19:55)
[2021-02-08] MEDS ORDERED: AMIODARONE HCL 150 MG/3 ML INJ IV ONE (04:15)
[2021-02-08] MEDS ORDERED: D5W 100 ML IV ONE (04:16)
[2021-02-08] MEDS ORDERED: NA CHLORIDE 0.9% 250 ML IV PRN (04:19)
[2021-02-08 05:15] LABS: Absolute Lymphocytes (CBC) 0.4 K/uL (0.7-4.9); Basophils % 0.2 % (0-1.3); Hematocrit 41.8 % (39.6-49.0); Lymphocytes % 3.2 % (15.3-44.8); MPV 8.7 fL (7.6-11.3); RBC Red Blood Cell Count 4.43 M/uL (4.33-5.43)
[2021-02-08 05:29] LABS: BUN Blood Urea Nitrogen 30 mg/dL (7-18); Bicarbonate 37 mmol/L (21-32); Glucose Level 121 mg/dL (74-106); Potassium 4.5 mmol/L (3.5-5.1); Sodium Level 142 mmol/L (136-145)
[2021-02-08] MEDS: METOPROLOL TAR 25 MG TAB PO SCH ×2 (06:00→18:00)
--- NOTE | 2021-02-08 06:07 | P.PN ---
Subjective Date of Service: 02/08/21 Chief Complaint: COVID-19 pneumonia Subjective: Worsening (A. fib with RVR/a flutter overnight. Slightly improved with metoprolol, however continue to require multiple doses. Discussed with cardiology, started on amiodarone drip with improvement. Sinus rhythm this morning. Patient feels a little bit better but continues with generalized weakness cough.) Review of Systems 10-point ROS is otherwise unremarkable Physical Examination - Vital Signs Temperature: 98.3 F Blood Pressure: 98/62 Pulse: 153 Respirations: 32 Pulse Ox (%): 98 Assessment & Plan Physician Review Additional Text: Physical Exam General: Alert, Oriented x3, fatigued, cachectic HEENT: normal conjunctiva, sclera anicteric Respiratory: mild tachypnea/labored respirations on 2-3L NC Cardiovascular: Regular rate/rhythm, Normal S1 S2 Gastrointestinal: soft, nontender, nondistended Musculoskeletal: No joint tenderness Neuro: generalized weakness Problem List Acute hypoxic respiratory failure secondary to COVID-19 pneumonia complicated with history of COPD Hypertension possible new Lung malignancy, with possible liver mets Paroxysmal atrial fibrillation Severe protein calorie malnutrition, chronic Continue treatment per Covid protocol Continue steroids, vitamin supplementation, ivermectin Does not qualify for baricitinib given low CRP CT with concern for malignancy of lung - patient informed -apparently review of EMR shows he was informed of this months ago, patient currently denies any prior knowledge CT abdomen/pelvis obtained on 02/06, multiple small liver cysts, possibility of early metastasis. Patient informed Pulmonology consulted Imaging with minimal/mild COVID Pneumonia. Hypoxia seems to be more due to COPD, questionable if this lung mass is playing a role as well pt reports significant weakness, feels that he can't ambulate. He has not gotten out of bed the last 3-4 days. PT consulted Patient states he was ambulating with walker at home. States only a few steps at a time. very weak and concerned he cannot go home safely. He lives with his son, son works 12 hours a day most days Prior hospitalization noted patient was in A. fib trial of sotalol, however patient was taken from the hospital AMA Patient denied any history of A. fib, but did report similar episodes occur at least once a month Cardiology consulted Continue amiodarone Patient with decreased urine output, initially agreeable, but then refused Urbina catheter for strict I's and O's Increase IV fluid, monitor urine output. Patient with significantly low p.o. intake Dispo: possible placement, licensed clinical social worker consulted, unsure of patient's benefits at this time lives with son Time Spent Managing Pts Care (In Minutes): 40
[2021-02-08] MEDS ORDERED: NA CHLORIDE 0.9% 1,000 ML IV SCH (07:00)
[2021-02-08] MEDS ORDERED: NA CHLORIDE 0.9% 1,000 ML ONE (07:06)
[2021-02-08] MEDS: ARFORMOTEROL TARTRATE 15 MCG/2 ML VIAL.NEB NEB SCH ×2 (08:00→19:55)
[2021-02-08] MEDS: NA CHLORIDE 0.9% 1,000 ML IV SCH ×2 (08:26→21:52)
[2021-02-08] MEDS: ENSURE ENLIVE 237 ML CAN PO SCH ×3 (09:00→21:00)
--- NOTE | 2021-02-08 09:42 | RAD REPORT ---
EXAM DESCRIPTION: US - Urinary Bladder - 02/08/2021 9:31 am CLINICAL HISTORY: low UOP COMPARISON: Abdomen Pelvis W Contrast dated 02/06/2021 FINDINGS: Urinary bladder is mostly decompressed with less volume than seen on the February 06 CT stud y. The low lung volume does limit assessment of the bladder. No wall thickening or mass identifiable. IMPRESSION: Mostly contracted urinary bladder shows no gross abnormality.
--- NOTE | 2021-02-08 10:41 | EKG ---
Test Date: 2021-02-07 Test Time: 14:08:43 Incinerator Attendant: DANGELO MEASUREMENT RESULTS: Intervals: Rate: 150 RI: QRSD: 76 QT: 252 QTc: 398 [place]: P: RI: QRS: 63 T: 50 INTERPRETIVE STATEMENTS: Atrial fibrillation with rapid ventricular response with premature ventricular or aberrantly conducted complexes Junctional ST depression, probably normal Abnormal ECG Compared to ECG 02/03/2021 19:47:38 Ventricular premature complex(es) now present ST (T wave) deviation now present Sinus rhythm no longer present Atrial premature complex(es) no longer present Atrial abnormality no longer present Myocardial infarct finding no longer present Electronically Signed On 02-08-21 10:39:52 CDT by Neil Prater
[2021-02-08] MEDS: ZINC SULFATE 220 MG CAP PO SCH (10:53)
[2021-02-08] MEDS: ENOXAPARIN 60 MG/0.6 ML SQ SCH ×2 (10:53→21:39)
[2021-02-08] MEDS: THIAMINE HCL 100 MG TABLET PO SCH (10:53)
[2021-02-08] MEDS: VITAMIN D 1000 UNIT TAB PO SCH (10:53)
[2021-02-08] MEDS: ASCORBIC ACID 500 MG TABLET PO SCH ×4 (10:53→21:38)
[2021-02-08] MEDS: ASPIRIN EC 81 MG TAB PO SCH (10:53)
[2021-02-08] MEDS: predniSONE 20 MG TAB PO SCH ×2 (10:53→21:38)
[2021-02-08] MEDS ORDERED: AMIODARONE HCL 900 MG in Dextrose 5%-Water 482 ML IV SCH (11:00)
--- NOTE | 2021-02-08 13:02 | PN ---
Date of Progress Note: 02/08/2021 Subjective: Mr. Nolen was admitted with COVID pneumonia, possible lung cancer, atrial fibrillatio n. He is a do not resuscitate. He was in atrial fibrillation at a rate of 124. He was resistant to metoprolol and digoxin. IV amiodarone was started. He is in normal rhythm today. Continue IV amio darone. Echocardiogram is pending. He remains on zinc, thiamine, Norvasc, aspirin, Lovenox, ivermec tin, and inhalers. We will continue to follow him. MICHAEL/LAURA Voice ID: [id number] Report ID: [id number]
[2021-02-08 17:01] VITALS: BMI 15.5
[2021-02-09] MEDS: IPRATROPIUM BROM 0.5MG/2.5ML NEB SCH ×4 (02:03→20:00)
[2021-02-09 05:15] LABS: Absolute Lymphocytes (CBC) 0.5 K/uL (0.7-4.9); Basophils % 0.1 % (0-1.3); Lymphocytes % 3.9 % (15.3-44.8); MPV 8.4 fL (7.6-11.3); RBC Red Blood Cell Count 4.24 M/uL (4.33-5.43)
[2021-02-09] MEDS: METOPROLOL TAR 25 MG TAB PO SCH ×2 (05:31→17:55)
[2021-02-09 05:32] LABS: BUN Blood Urea Nitrogen 31 mg/dL (7-18); Bicarbonate 36 mmol/L (21-32); Ferritin 758.4 ng/mL (26-388); Glucose Level 79 mg/dL (74-106); Magnesium 2.3 mg/dL (1.8-2.4); Potassium 4.3 mmol/L (3.5-5.1); Sodium Level 143 mmol/L (136-145)
--- NOTE | 2021-02-09 06:01 | CON ---
Date of Consultation: 02/07/2021 Reason For Consultation: Atrial fibrillation that is paroxysmal. History Of Present Illness: Mr. Nolen is a 80-year-old male, he was actually here 2 weeks ago and left AMA. He had came in with atrial fibrillation, was placed on sotalol, but he left AMA. He is n ot taking any medications at home. Right now, he comes in with shortness of breath. So far, he is f ound to be "cold pneumonia possible lung cancer with mets," intrapulmonary, and possible adrenal. He had COPD history, CVA history, hypertension. He denied any chest pain or syncope. The patient is a do not resuscitate. His atrial fibrillation rate is 124. Allergies: NONE. Review of Systems: Negative. Social History: Positive for tobacco. Family History: Noncontributory. Physical Examination: Vital Signs: His heart rate was 124, atrial fibrillation, otherwise afebrile. HEENT: Negative. Neck: Supple. No bruit. Chest: Reveals crackles at both bases. Cardiac: Revealed atrial fibrillation. No murmurs, gallops, or rubs. Abdomen: Benign. Extremities: Revealed no clubbing, cyanosis, or edema. Diagnostic Data: EKG showed atrial fibrillation. Chest x-ray showed right upper lobe mass. CT scan of the liver and abdomen showed possible adrenal mass. There were other lesions in the lung that ma y be metastatic disease. D-dimer was 597. White count of 15,000. Impression And Plan: 1.COVID pneumonia. 2.Atrial fibrillation. 3.Possible lung cancer. 4.Chronic obstructive pulmonary disease. 5.Cerebrovascular accident. 6.Hypertension. The patient is presently on metoprolol, Norvasc, aspirin, Lovenox, inhalers, ivermectin, zinc, and th iamine. I will continue the metoprolol for now and maybe increase the dose. He can get the dose of digoxin IV. He can be on 0.125 digoxin daily. I think we should obtain a 2D echocardiogram on him. His atrial fibrillation is resistant to beta blockers, then we should consider IV amiodarone. I kyara l continue to follow him. MICHAEL/LAURA Voice ID: [id number] Report ID: [id number]
--- NOTE | 2021-02-09 06:02 | P.PN ---
Subjective Date of Service: 02/09/21 Chief Complaint: COVID-19 pneumonia Subjective: Worsening (Up to 6 L nasal cannula this morning. Having more of a cough and feeling short of breath. Denies chest pain. Reports generalized weakness, has not gotten out of bed) Review of Systems 10-point ROS is otherwise unremarkable Physical Examination - Vital Signs Temperature: 97.4 F Blood Pressure: 129/59 Pulse: 56 Respirations: 22 Pulse Ox (%): 100 - Studies Microbiology Data (last 24 hrs): 02/03/21 19:56 Blood - Blood Aerobic Blood Culture - Final No growth in 5 days. 02/03/21 19:56 Blood - Blood Anaerobic Blood Culture - Final No growth in 5 days. 02/03/21 20:00 Blood - Blood Aerobic Blood Culture - Final No growth in 5 days. 02/03/21 20:00 Blood - Blood Anaerobic Blood Culture - Final No growth in 5 days. Assessment & Plan Physician Review Additional Text: Physical Exam General: Alert, Oriented x3, fatigued, cachectic HEENT: normal conjunctiva, sclera anicteric Respiratory: mild tachypnea/labored respirations on 6L NC Cardiovascular: Regular rate/rhythm, Normal S1 S2 Gastrointestinal: soft, nontender, nondistended Musculoskeletal: No joint tenderness Neuro: generalized weakness Problem List Acute hypoxic respiratory failure secondary to COVID-19 pneumonia complicated with history of COPD Hypertension possible new Lung malignancy, with possible liver mets Paroxysmal atrial fibrillation Severe protein calorie malnutrition, chronic Continue treatment per Covid protocol. Continue steroids, vitamin supplementation, ivermectin Did not qualify for baricitinib given low CRP CT with concern for malignancy of lung - patient informed -apparently review of EMR shows he was informed of this months ago, patient currently denies any prior knowledge CT abdomen/pelvis obtained on 02/06, multiple small liver cysts, possibility of early metastasis. Patient informed Inflammatory markers worsening, oxygen requirement increasing Increased work of breathing, patient appears slightly more tachypneic Pulmonology consulted pt reports significant weakness, feels that he can't ambulate. He has not gotten out of bed the last 3-4 days. PT consulted Patient states he was ambulating with walker at home. States only a few steps at a time. very weak and concerned he cannot go home safely. He lives with his son, son works 12 hours a day most days Prior hospitalization noted patient was in A. fib trial of sotalol, however patient was taken from the hospital AMA Patient denied any history of A. fib, but did report similar episodes occur at least once a month Cardiology consulted Continue amiodarone Patient with decreased urine output, initially agreeable, but then refused Urbina catheter for strict I's and O's Increase IV fluid, monitor urine output. Patient with significantly low p.o. intake Dispo: possible placement, social worker health services consulted lives with son Time Spent Managing Pts Care (In Minutes): 40
[2021-02-09 06:06] LABS: Blood Morphology Comment NOT SEEN (NOT SEEN); Platelet Estimate ADEQ
--- NOTE | 2021-02-09 07:04 | RAD REPORT ---
EXAM DESCRIPTION: RAD - Chest Single View - 02/09/2021 6:20 am CLINICAL HISTORY: worsening hypoxia, COVID, eval edema/effusion COMPARISON: Chest Single View dated 02/06/2021; Chest Single View dated 02/03/2021; Chest Single View dated 12/19/2020; Chest Single View dated 12/17/2020; Chest For Pe Angio dated 02/03/2021 FINDINGS: Developing consolidation in the right lower lobe. Left lung remains clear. Right upper lob e lung mass again noted. The heart size is within normal limits.No acute osseous abnormality. No sign ificant pleural effusions or pneumothorax. IMPRESSION: Developing right lower lobe consolidation concerning for pneumonia/pneumonitis.
[2021-02-09] MEDS: ARFORMOTEROL TARTRATE 15 MCG/2 ML VIAL.NEB NEB SCH ×3 (08:00→20:00)
[2021-02-09] MEDS: ENSURE ENLIVE 237 ML CAN PO SCH ×3 (09:00→20:59)
[2021-02-09] MEDS: VITAMIN D 1000 UNIT TAB PO SCH (10:24)
[2021-02-09] MEDS: ZINC SULFATE 220 MG CAP PO SCH (10:24)
[2021-02-09] MEDS: predniSONE 20 MG TAB PO SCH ×2 (10:25→20:59)
[2021-02-09] MEDS: ENOXAPARIN 60 MG/0.6 ML SQ SCH ×2 (10:25→20:59)
[2021-02-09] MEDS: ASPIRIN EC 81 MG TAB PO SCH (10:25)
[2021-02-09] MEDS: ASCORBIC ACID 500 MG TABLET PO SCH ×4 (10:25→21:00)
[2021-02-09] MEDS: THIAMINE HCL 100 MG TABLET PO SCH (10:25)
[2021-02-09] MEDS: AMIODARONE HCL 200 MG TAB PO SCH ×2 (11:22→20:41)
[2021-02-09] MEDS: NA CHLORIDE 0.9% 1,000 ML IV SCH (13:15)
[2021-02-09] MEDS: BENZONATATE 100 MG CAP PO PRN (13:15)
--- NOTE | 2021-02-09 14:15 | ECHO ---
HEIGHT: 6 ft 0 in WEIGHT: 114 lb 15.89 oz DATE OF STUDY: 02/09/[address]: Neil Prater MD 2-DIMENSIONAL: YES M.MODE: YES DOPPLER: YES COLOR FLOW: YES TDS: NO PORTABLE: YES DEFINITY: NO BUBBLE STUDY: NO DIAGNOSIS: ATRIAL FIBRILLATION CARDIAC HISTORY: CATHERIZATION: NO SURGERY: NO PROSTHETIC VALVE: NO PACEMAKER: NO MEASUREMENTS (cm) DIASTOLIC (NORMALS) SYSTOLIC (NORMALS) IVSd 0.8 (0.6-1.2) LA Diam 2.8 (1.9-4.0) LVEF 61% LVIDd 4.4 (3.5-5.7) LVIDs 3.0 (2.0-3.5) %FS 33% LVPWd 0.9 (0.6-1.2) Ao Diam 2.7 (2.0-3.7) 2 DIMENSIONAL ASSESSMENT: RIGHT ATRIUM: NORMAL LEFT ATRIUM: NORMAL RIGHT VENTRICLE: NORMAL LEFT VENTRICLE: NORMAL TRICUSPID VALVE: MITRAL VALVE: PULMONIC VALVE: NORMAL AORTIC VALVE: NORMAL PERICARDIAL EFFUSION: NONE AORTIC ROOT: NORMAL LEFT VENTRICULAR WALL MOTION: NORMAL DOPPLER/COLOR FLOW: SEE BELOW COMMENTS: NORMAL LEFT VENTRICULAR EJECTION FRACTION 55-60% WITH NORMAL WALL MOTION. MODERATE TRICUSPID REGURGITATION. MILD MITRAL REGURGITATION. MODERATE DIASTOLIC DYSFUNCTION. RIGHT VENTRICULAR SYSTOLIC PRESSURE >60 mmHg. PULMONARY HYPERTENSION WITH RIGHT VENTRICULAR SYSTOLIC PRESSURE >60 mmHg. TECHNOLOGIST: Madgiel HUTCHINS
--- NOTE | 2021-02-09 22:35 | PN ---
Date of Progress Note: 02/09/2021 Mr. Nolen had come in with COVID, possible lung cancer, atrial fibrillation. Was placed on IV ami odarone. He is in normal rhythm today. The case was discussed with Dr. Pedro and staff in the U. We can switch him to p.o. amiodarone 400 mg b.i.d. for 7 days and then 200 mg daily. Continue hi s workup and treatment for COVID and lung cancer possibility. Dr. Pedro is following him. I will be available for questions if the need arises, but I will continue to follow him for his rhythm. MICHAEL/LAURA Voice ID: [id number] Report ID: [id number]
[2021-02-09] MEDS: MELATONIN 5 MG TABLET PO PRN (22:52)
[2021-02-10] MEDS: IPRATROPIUM BROM 0.5MG/2.5ML NEB SCH ×4 (02:00→20:00)
[2021-02-10] MEDS: NA CHLORIDE 0.9% 1,000 ML IV SCH (02:03)
[2021-02-10 04:43] LABS: Hematocrit 38.1 % (39.6-49.0); MPV 8.2 fL (7.6-11.3); RBC Red Blood Cell Count 4.04 M/uL (4.33-5.43)
[2021-02-10 05:04] LABS: BUN Blood Urea Nitrogen 29 mg/dL (7-18); Bicarbonate 35 mmol/L (21-32); Glucose Level 120 mg/dL (74-106); Magnesium 1.9 mg/dL (1.8-2.4); Potassium 4.1 mmol/L (3.5-5.1); Sodium Level 145 mmol/L (136-145)
[2021-02-10] MEDS: METOPROLOL TAR 25 MG TAB PO SCH ×2 (06:00→16:42)
[2021-02-10] MEDS: ARFORMOTEROL TARTRATE 15 MCG/2 ML VIAL.NEB NEB SCH ×2 (08:19→20:00)
[2021-02-10] MEDS: VITAMIN D 1000 UNIT TAB PO SCH (08:21)
[2021-02-10] MEDS: THIAMINE HCL 100 MG TABLET PO SCH (08:22)
[2021-02-10] MEDS: ASCORBIC ACID 500 MG TABLET PO SCH ×4 (08:22→19:51)
[2021-02-10] MEDS: ENOXAPARIN 60 MG/0.6 ML SQ SCH (08:22)
[2021-02-10] MEDS: ZINC SULFATE 220 MG CAP PO SCH (08:22)
[2021-02-10] MEDS: ASPIRIN EC 81 MG TAB PO SCH (08:22)
[2021-02-10] MEDS: AMIODARONE HCL 200 MG TAB PO SCH ×2 (08:22→19:51)
[2021-02-10] MEDS: predniSONE 20 MG TAB PO SCH ×2 (08:22→19:52)
[2021-02-10] MEDS: ENSURE ENLIVE 237 ML CAN PO SCH ×3 (08:23→19:52)
--- NOTE | 2021-02-10 12:06 | PN ---
Date of Progress Note: 02/10/2021 Mr. Nolen came in with atrial fibrillation, possible lung cancer, COVID pneumonia. He was placed on IV amiodarone because of atrial fibrillation converted to sinus rhythm on IV amiodarone. He was s witched to 400 mg 1 p.o. b.i.d. and he has stayed in sinus rhythm. He needs to stay on 400 b.i.d. fo r 7 days total and then switch to 200 mg daily. Continue other treatment and long workup. I will be available for questions if the need arises. We will see him in the office as an outpatient eventual ly. YI Voice ID: [id number] Report ID: [id number]
--- NOTE | 2021-02-10 15:40 | P.PN ---
Subjective Date of Service: 02/10/21 Chief Complaint: COVID-19 pneumonia Patient states he is feeling better and wants to go home. He has good oxygen saturation on 4 L nasal cannula. AFib is rate controlled. Physical Examination - Vital Signs Temperature: 98.6 F Blood Pressure: 108/50 Pulse: 71 Respirations: 22 Pulse Ox (%): 99 - Physical Exam General: Alert, In no apparent distress, Oriented x3 Neck: JVD not distended Respiratory: Other (Nonlabored breathing) Cardiovascular: Normal S1 S2 Assessment And Plan - Current Problems (Diagnosis) (1) Pneumonia due to COVID-19 virus Current Visit: Yes Status: Acute (2) Atrial fibrillation Onset Date: 05/08/18 Current Visit: No Status: Acute Qualifiers: Atrial fibrillation type: paroxysmal Qualified Code(s): I48.0 - Paroxysmal atrial fibrillation (3) COPD with acute exacerbation Current Visit: No Status: Acute Physician Review Additional Text: Problem List Acute hypoxic respiratory failure secondary to COVID-19 pneumonia complicated with history of COPD Hypertension possible new Lung malignancy, with possible liver mets Paroxysmal atrial fibrillation Severe protein calorie malnutrition, chronic Continue treatment per Covid protocol. Continue steroids, vitamin supplementation, ivermectin Patient stable on 4 L oxygen by nasal cannula CT with concern for malignancy of lung - patient informed -apparently review of EMR shows he was informed of this months ago, patient currently denies any prior knowledge CT abdomen/pelvis obtained on 02/06, multiple small liver cysts, possibility of early metastasis. Patient informed Inflammatory markers worsening, oxygen requirement increasing Increased work of breathing, patient appears slightly more tachypneic Pulmonology consulted pt reports significant weakness, feels that he can't ambulate. He has not gotten out of bed the last 3-4 days. PT to evaluate. Patient states he was ambulating with walker at home. States only a few steps at a time. Patient wants to go home. Home health versus skilled rehab pending PT evaluation Patient converted to sinus rhythm on amiodarone drip. Seen by cardiology. Dr. Prater recommend amiodarone 400 mg b.i.d. x7 days followed by amiodarone 200 mg daily. Patient currently in sinus rhythm.
--- NOTE | 2021-02-10 17:03 | P.PN ---
Subjective Date of Service: 02/10/21 Chief Complaint: COVID-19 pneumonia Subjective: Improving (Patient's condition is stable is no longer in A. fib) Review of Systems General: Weakness Respiratory: Shortness of Breath Physical Examination - Vital Signs Temperature: 98.6 F Blood Pressure: 139/51 Pulse: 77 Respirations: 23 Pulse Ox (%): 90 - Physical Exam General: Alert, Oriented x3, Cooperative Assessment & Plan - Problems (Diagnosis) (1) COPD with acute exacerbation Current Visit: No Status: Acute Plan: Patient's condition has improved manager of change to p.o. Xarelto DC subcutaneous Lovenox transfer to the floor atrial fibrillation has resolved (2) Lung mass Current Visit: No Status: Acute Plan: likley lung cancer with intrapulm mets?HERNANDEZ as outpt/ pet scan and PFT LAkphos is elevated bony VS Liver mets Physician Review Additional Text: Problem List Acute hypoxic respiratory failure secondary to COVID-19 pneumonia complicated with history of COPD Hypertension possible new Lung malignancy, with possible liver mets Paroxysmal atrial fibrillation Severe protein calorie malnutrition, chronic Continue treatment per Covid protocol. Continue steroids, vitamin supplementation, ivermectin Patient stable on 4 L oxygen by nasal cannula CT with concern for malignancy of lung - patient informed -apparently review of EMR shows he was informed of this months ago, patient currently denies any prior knowledge CT abdomen/pelvis obtained on 02/06, multiple small liver cysts, possibility of early metastasis. Patient informed Inflammatory markers worsening, oxygen requirement increasing Increased work of breathing, patient appears slightly more tachypneic Pulmonology consulted pt reports significant weakness, feels that he can't ambulate. He has not gotten out of bed the last 3-4 days. PT to evaluate. Patient states he was ambulating with walker at home. States only a few steps at a time. Patient wants to go home. Home health versus skilled rehab pending PT evaluation Patient converted to sinus rhythm on amiodarone drip. Seen by cardiology. Dr. Prater recommend amiodarone 400 mg b.i.d. x7 days followed by amiodarone 200 mg daily. Patient currently in sinus rhythm.
[2021-02-10] MEDS: MELATONIN 5 MG TABLET PO PRN (19:51)
[2021-02-11] MEDS: IPRATROPIUM BROM 0.5MG/2.5ML NEB SCH ×4 (00:50→20:00)
[2021-02-11 05:37] LABS: BUN Blood Urea Nitrogen 27 mg/dL (7-18); Bicarbonate 36 mmol/L (21-32); Glucose Level 122 mg/dL (74-106); Potassium 4.1 mmol/L (3.5-5.1); Sodium Level 147 mmol/L (136-145)
[2021-02-11] MEDS: METOPROLOL TAR 25 MG TAB PO SCH ×2 (05:54→16:30)
[2021-02-11] MEDS: predniSONE 20 MG TAB PO SCH ×2 (08:32→20:43)
[2021-02-11] MEDS: ZINC SULFATE 220 MG CAP PO SCH (08:32)
[2021-02-11] MEDS: ASPIRIN EC 81 MG TAB PO SCH (08:32)
[2021-02-11] MEDS: VITAMIN D 1000 UNIT TAB PO SCH (08:32)
[2021-02-11] MEDS: ASCORBIC ACID 500 MG TABLET PO SCH ×4 (08:32→20:43)
[2021-02-11] MEDS: BENZONATATE 100 MG CAP PO PRN (08:32)
[2021-02-11] MEDS: AMIODARONE HCL 200 MG TAB PO SCH ×2 (08:33→20:43)
[2021-02-11] MEDS: THIAMINE HCL 100 MG TABLET PO SCH (08:33)
[2021-02-11] MEDS: ARFORMOTEROL TARTRATE 15 MCG/2 ML VIAL.NEB NEB SCH ×2 (08:35→20:00)
[2021-02-11] MEDS: ENSURE ENLIVE 237 ML CAN PO SCH ×3 (08:39→20:43)
[2021-02-11] MEDS: RIVAROXABAN 20 MG TABLET PO SCH (16:29)
[2021-02-11] MEDS: ACETAMINOPHEN 500 MG TAB PO PRN (16:29)
--- NOTE | 2021-02-11 17:22 | P.PN ---
Subjective Date of Service: 02/11/21 Chief Complaint: COVID-19 pneumonia Patient states he wants to go home. He denies shortness of breath and has been tolerating 4 L oxygen by nasal cannula. Currently in sinus rhythm. Physical Examination - Vital Signs Temperature: 100 F Blood Pressure: 148/53 Pulse: 58 Respirations: 29 Pulse Ox (%): 94 - Physical Exam General: Alert, In no apparent distress, Oriented x3 Neck: JVD not distended Respiratory: Other (Nonlabored breathing) Cardiovascular: Regular rate/rhythm, Normal S1 S2 Gastrointestinal: Soft and benign, Non-distended Musculoskeletal: No swelling Integumentary: No rashes Neurological: Normal strength at 5/5 x4 extr Assessment And Plan - Current Problems (Diagnosis) (1) Pneumonia due to COVID-19 virus Current Visit: Yes Status: Acute (2) Atrial fibrillation Onset Date: 05/08/18 Current Visit: No Status: Acute Qualifiers: Atrial fibrillation type: paroxysmal Qualified Code(s): I48.0 - Paroxysmal atrial fibrillation (3) COPD with acute exacerbation Current Visit: No Status: Acute Physician Review Additional Text: Problem List Acute hypoxic respiratory failure secondary to COVID-19 pneumonia complicated with history of COPD Hypertension possible new Lung malignancy, with possible liver mets Paroxysmal atrial fibrillation Severe protein calorie malnutrition, chronic Continue steroids, vitamin supplementation, ivermectin Patient stable on 4 L oxygen by nasal cannula. CT with concern for malignancy of lung - patient informed -apparently review of EMR shows he was informed of this months ago, patient currently denies any prior knowledge CT abdomen/pelvis obtained on 02/06, multiple small liver cysts, possibility of early metastasis. Patient informed Patient desaturated with standing and was requiring 10L with oxygen saturation around 90% while sitting up in bed during PT Pulmonology input appreciated. Patient states he was ambulating with walker at home. States only a few steps at a time. Patient will need LTAC placement. He converted to sinus rhythm on amiodarone drip. Dr. Prater recommend amiodarone 400 mg b.i.d. x7 days followed by amiodarone 200 mg daily. Patient currently in sinus rhythm.
[2021-02-11] MEDS: MELATONIN 5 MG TABLET PO PRN (20:43)
[2021-02-12] MEDS: IPRATROPIUM BROM 0.5MG/2.5ML NEB SCH ×4 (02:10→20:25)
[2021-02-12] MEDS: METOPROLOL TAR 25 MG TAB PO SCH ×2 (06:24→18:37)
[2021-02-12] MEDS: ARFORMOTEROL TARTRATE 15 MCG/2 ML VIAL.NEB NEB SCH ×2 (08:00→20:25)
[2021-02-12 08:20] LABS: Absolute Lymphocytes (CBC) 0.4 K/uL (0.7-4.9); Basophils % 0.4 % (0-1.3); Hematocrit 39.8 % (39.6-49.0); Lymphocytes % 3.2 % (15.3-44.8); MPV 7.7 fL (7.6-11.3); RBC Red Blood Cell Count 4.23 M/uL (4.33-5.43)
[2021-02-12 08:32] LABS: BUN Blood Urea Nitrogen 25 mg/dL (7-18); Bicarbonate 39 mmol/L (21-32); Glucose Level 90 mg/dL (74-106); Potassium 4.3 mmol/L (3.5-5.1); Sodium Level 145 mmol/L (136-145)
[2021-02-12] MEDS: ENSURE ENLIVE 237 ML CAN PO SCH ×3 (09:00→21:00)
[2021-02-12] MEDS: VITAMIN D 1000 UNIT TAB PO SCH (09:07)
[2021-02-12] MEDS: THIAMINE HCL 100 MG TABLET PO SCH (09:07)
[2021-02-12] MEDS: ZINC SULFATE 220 MG CAP PO SCH (09:07)
[2021-02-12] MEDS: ASCORBIC ACID 500 MG TABLET PO SCH ×4 (09:07→21:02)
[2021-02-12] MEDS: ASPIRIN EC 81 MG TAB PO SCH (09:07)
[2021-02-12] MEDS: BENZONATATE 100 MG CAP PO PRN (09:07)
[2021-02-12] MEDS: AMIODARONE HCL 200 MG TAB PO SCH ×2 (09:07→21:00)
[2021-02-12] MEDS: predniSONE 20 MG TAB PO SCH ×2 (09:07→21:02)
[2021-02-12] MEDS ORDERED: FLUTICASONE 50MCG NASAL SPRAY NAS PRN (09:21)
--- NOTE | 2021-02-12 12:42 | P.PN ---
Subjective Date of Service: 02/12/21 Chief Complaint: COVID-19 pneumonia Patient states he wants to go home. He reflux He denies shortness of breath and has been tolerating 5 L Ventimask He remain in sinus rhythm Physical Examination - Vital Signs Temperature: 97.5 F Blood Pressure: 126/75 Pulse: 70 Respirations: 24 Pulse Ox (%): 87 Assessment And Plan - Current Problems (Diagnosis) (1) Pneumonia due to COVID-19 virus Current Visit: Yes Status: Acute (2) Atrial fibrillation Onset Date: 05/08/18 Current Visit: No Status: Acute Qualifiers: Atrial fibrillation type: paroxysmal Qualified Code(s): I48.0 - Paroxysmal atrial fibrillation (3) COPD with acute exacerbation Current Visit: No Status: Acute Physician Review Additional Text: Physical Exam General: Alert, Oriented x3, fatigued, cachectic HEENT: normal conjunctiva, sclera anicteric Respiratory: On 5 L Ventimask. Mild labored breathing with exertion. Cardiovascular: Regular rate/rhythm, Normal S1 S2 Gastrointestinal: soft, nontender, nondistended Musculoskeletal: No joint tenderness Neuro: Global weakness Problem List Acute hypoxic respiratory failure secondary to COVID-19 pneumonia complicated with history of COPD Hypertension possible new Lung malignancy, with possible liver mets Paroxysmal atrial fibrillation Severe protein calorie malnutrition, chronic Continue steroids, vitamin supplementation, ivermectin Patient on Ventimask. CT with concern for malignancy of lung - patient informed -apparently review of EMR shows he was informed of this months ago, patient currently denies any prior knowledge CT abdomen/pelvis obtained on 02/06, multiple small liver cysts, possibility of early metastasis. Patient informed Patient desaturated with standing and was requiring 10L with oxygen saturation around 90% while sitting up in bed during PT. He refuses PT today and fixed on going home. Pulmonology is following. Patient will need LTAC placement. He converted to sinus rhythm on amiodarone drip. Dr. Prater recommend amiodarone 400 mg b.i.d. x7 days followed by amiodarone 200 mg daily.
[2021-02-12] MEDS: RIVAROXABAN 20 MG TABLET PO SCH (18:37)
[2021-02-12] MEDS: ACETAMINOPHEN 500 MG TAB PO PRN (21:02)
[2021-02-12] MEDS: MELATONIN 5 MG TABLET PO PRN (21:02)
[2021-02-13] MEDS: ARFORMOTEROL TARTRATE 15 MCG/2 ML VIAL.NEB NEB SCH ×2 (01:45→08:00)
[2021-02-13] MEDS: IPRATROPIUM BROM 0.5MG/2.5ML NEB SCH ×4 (01:45→14:15)
[2021-02-13 06:10] LABS: Absolute Lymphocytes (CBC) 0.4 K/uL (0.7-4.9); Basophils % 0.3 % (0-1.3); Hematocrit 41.6 % (39.6-49.0); MPV 7.6 fL (7.6-11.3); RBC Red Blood Cell Count 4.43 M/uL (4.33-5.43)
[2021-02-13 06:17] LABS: BUN Blood Urea Nitrogen 31 mg/dL (7-18); Bicarbonate 40 mmol/L (21-32); Glucose Level 110 mg/dL (74-106); Sodium Level 146 mmol/L (136-145)
[2021-02-13] MEDS: METOPROLOL TAR 25 MG TAB PO SCH ×2 (06:17→17:30)
[2021-02-13 09:03] LABS: Blood Morphology Comment NOT SEEN (NOT SEEN); Platelet Estimate ADEQ
[2021-02-13] MEDS: ASPIRIN EC 81 MG TAB PO SCH (09:46)
[2021-02-13] MEDS: VITAMIN D 1000 UNIT TAB PO SCH (09:46)
[2021-02-13] MEDS: ENSURE ENLIVE 237 ML CAN PO SCH ×3 (09:47→20:31)
[2021-02-13] MEDS: ZINC SULFATE 220 MG CAP PO SCH (09:47)
[2021-02-13] MEDS: predniSONE 20 MG TAB PO SCH ×2 (09:47→20:31)
[2021-02-13] MEDS: AMIODARONE HCL 200 MG TAB PO SCH ×2 (09:47→20:31)
[2021-02-13] MEDS: ASCORBIC ACID 500 MG TABLET PO SCH ×4 (09:47→20:31)
[2021-02-13] MEDS: THIAMINE HCL 100 MG TABLET PO SCH (09:47)
--- NOTE | 2021-02-13 17:09 | P.PN ---
Subjective Date of Service: 02/13/21 Chief Complaint: COVID-19 pneumonia Patient is more cooperative today He denies shortness of breath and has been tolerating 6 L Ventimask He is in sinus rhythm Physical Examination - Vital Signs Temperature: 97.7 F Blood Pressure: 156/73 Pulse: 73 Respirations: 22 Pulse Ox (%): 96 - Physical Exam General: Alert, In no apparent distress Neck: JVD not distended Respiratory: Other (Nonlabored breathing) Cardiovascular: Regular rate/rhythm, Normal S1 S2 Gastrointestinal: Soft and benign, Non-distended Musculoskeletal: No swelling Integumentary: No rashes Neurological: Normal strength at 5/5 x4 extr Assessment And Plan - Current Problems (Diagnosis) (1) Pneumonia due to COVID-19 virus Current Visit: Yes Status: Acute (2) Atrial fibrillation Onset Date: 05/08/18 Current Visit: No Status: Acute Qualifiers: Atrial fibrillation type: paroxysmal Qualified Code(s): I48.0 - Paroxysmal atrial fibrillation (3) COPD with acute exacerbation Current Visit: No Status: Acute Physician Review Additional Text: Physical Exam General: Alert, Oriented x3, fatigued, cachectic HEENT: normal conjunctiva, sclera anicteric Respiratory: On 6 L Ventimask. Nonlabored breathing. Cardiovascular: Regular rate/rhythm, Normal S1 S2 Gastrointestinal: soft, nontender, nondistended Musculoskeletal: No joint tenderness Neuro: Global weakness Problem List Acute hypoxic respiratory failure secondary to COVID-19 pneumonia complicated with history of COPD Hypertension possible new Lung malignancy, with possible liver mets Paroxysmal atrial fibrillation Severe protein calorie malnutrition, chronic Continue steroids, vitamin supplementation. Patient on Ventimask. CT with concern for malignancy of lung - patient informed -apparently review of EMR shows he was informed of this months ago, patient currently denies any prior knowledge CT abdomen/pelvis obtained on 02/06, multiple small liver cysts, possibility of early metastasis. Patient informed Patient desaturated with standing and was requiring 10L with oxygen saturation around 90% while sitting up in bed during PT. Continue PT as possible Pulmonology is following. Patient will need LTAC placement. He remain in sinus rhythm. Seen by Dr. Prater. Continue amiodarone.
[2021-02-13] MEDS: RIVAROXABAN 20 MG TABLET PO SCH (17:30)
[2021-02-13] MEDS: MELATONIN 5 MG TABLET PO PRN (20:32)
[2021-02-14] MEDS: IPRATROPIUM BROM 0.5MG/2.5ML NEB SCH ×4 (02:00→20:39)
[2021-02-14] MEDS: METOPROLOL TAR 25 MG TAB PO SCH ×2 (05:44→17:34)
[2021-02-14] MEDS: ARFORMOTEROL TARTRATE 15 MCG/2 ML VIAL.NEB NEB SCH ×2 (08:00→20:39)
[2021-02-14 08:08] LABS: BUN Blood Urea Nitrogen 38 mg/dL (7-18); Bicarbonate 38 mmol/L (21-32); Glucose Level 107 mg/dL (74-106); Potassium 4.6 mmol/L (3.5-5.1); Sodium Level 147 mmol/L (136-145)
[2021-02-14] MEDS: AMIODARONE HCL 200 MG TAB PO SCH ×4 (09:00→20:16)
[2021-02-14] MEDS: ENSURE ENLIVE 237 ML CAN PO SCH ×4 (09:00→20:16)
[2021-02-14] MEDS: THIAMINE HCL 100 MG TABLET PO SCH (10:02)
[2021-02-14] MEDS: VITAMIN D 1000 UNIT TAB PO SCH (10:02)
[2021-02-14] MEDS: ASPIRIN EC 81 MG TAB PO SCH (10:03)
[2021-02-14] MEDS: ZINC SULFATE 220 MG CAP PO SCH (10:03)
[2021-02-14] MEDS: ASCORBIC ACID 500 MG TABLET PO SCH ×4 (10:03→20:06)
[2021-02-14] MEDS: predniSONE 20 MG TAB PO SCH ×2 (10:10→20:06)
--- NOTE | 2021-02-14 14:32 | P.PN ---
Subjective Date of Service: 02/14/21 Chief Complaint: COVID-19 pneumonia Patient has been more cooperative He denies shortness of breath and has been tolerating 5-6 L Ventimask He has sinus bradycardia today. Physical Examination - Vital Signs Temperature: 97.7 F Blood Pressure: 146/57 Pulse: 54 Respirations: 26 Pulse Ox (%): 93 - Physical Exam General: Alert, In no apparent distress Neck: JVD not distended Respiratory: Other (No labored breathing) Cardiovascular: Regular rate/rhythm, Normal S1 S2 Gastrointestinal: Soft and benign, Non-distended Musculoskeletal: No swelling Integumentary: No rashes Neurological: Other (No focal motor deficit) Assessment And Plan - Current Problems (Diagnosis) (1) Pneumonia due to COVID-19 virus Current Visit: Yes Status: Acute (2) Atrial fibrillation Onset Date: 05/08/18 Current Visit: No Status: Acute Qualifiers: Atrial fibrillation type: paroxysmal Qualified Code(s): I48.0 - Paroxysmal atrial fibrillation (3) COPD with acute exacerbation Current Visit: No Status: Acute (4) Acute respiratory failure with hypoxia Current Visit: Yes Status: Acute Physician Review Additional Text: Physical Exam General: Alert, Oriented x3, fatigued, cachectic HEENT: normal conjunctiva, sclera anicteric Respiratory: On 5 L Ventimask. Nonlabored breathing. Cardiovascular: Regular rate/rhythm, Normal S1 S2 Gastrointestinal: soft, nontender, nondistended Musculoskeletal: No joint tenderness Neuro: Global weakness Problem List Acute hypoxic respiratory failure secondary to COVID-19 pneumonia complicated with history of COPD Hypertension possible new Lung malignancy, with possible liver mets Paroxysmal atrial fibrillation Severe protein calorie malnutrition, chronic Continue steroids, vitamin supplementation. Patient on Ventimask. CT with concern for malignancy of lung - patient is aware. CT abdomen/pelvis obtained on 02/06, multiple small liver cysts, possibility of early metastasis. Patient informed Patient desaturated with standing and movement. Continue PT as possible Pulmonology is following. Patient may need LTAC placement. Wean oxygen. Seen by Dr. Prater and AFib treated with amiodarone. Patient converted to sinus rhythm and has remained in sinus rhythm since then. He is bradycardic today and amiodarone dose held this morning.
[2021-02-14] MEDS: RIVAROXABAN 20 MG TABLET PO SCH (17:34)
[2021-02-14] MEDS: MELATONIN 5 MG TABLET PO PRN (20:06)
[2021-02-15] MEDS: IPRATROPIUM BROM 0.5MG/2.5ML NEB SCH ×3 (01:54→15:06)
[2021-02-15] MEDS: METOPROLOL TAR 25 MG TAB PO SCH (06:00)
[2021-02-15 06:42] LABS: C-Reactive Protein 11.3 mg/L (<3.00); Ferritin 603.2 ng/mL (26-388)
[2021-02-15] MEDS: ARFORMOTEROL TARTRATE 15 MCG/2 ML VIAL.NEB NEB SCH (08:00)
[2021-02-15] MEDS: ASPIRIN EC 81 MG TAB PO SCH (08:07)
[2021-02-15] MEDS: THIAMINE HCL 100 MG TABLET PO SCH (08:07)
[2021-02-15] MEDS: ZINC SULFATE 220 MG CAP PO SCH (08:07)
[2021-02-15] MEDS: VITAMIN D 1000 UNIT TAB PO SCH (08:07)
[2021-02-15] MEDS: predniSONE 20 MG TAB PO SCH (08:07)
[2021-02-15] MEDS: ASCORBIC ACID 500 MG TABLET PO SCH ×3 (08:07→16:31)
[2021-02-15] MEDS: AMIODARONE HCL 200 MG TAB PO SCH (08:10)
[2021-02-15] MEDS: ENSURE ENLIVE 237 ML CAN PO SCH ×2 (08:12→14:00)
--- NOTE | 2021-02-15 13:18 | P.PN ---
Subjective Date of Service: 02/15/21 Chief Complaint: COVID-19 pneumonia Patient requested to go home. 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 Physical Examination - Vital Signs Temperature: 97.5 F Blood Pressure: 121/72 Pulse: 69 Respirations: 32 Pulse Ox (%): 96 Assessment And Plan - Current Problems (Diagnosis) (1) Pneumonia due to COVID-19 virus Current Visit: Yes Status: Acute (2) Atrial fibrillation Onset Date: 05/08/18 Current Visit: No Status: Acute Qualifiers: Atrial fibrillation type: paroxysmal Qualified Code(s): I48.0 - Paroxysmal atrial fibrillation (3) COPD with acute exacerbation Current Visit: No Status: Acute (4) Acute respiratory failure with hypoxia Current Visit: Yes Status: Acute Physician Review Additional Text: Physical Exam General: Alert, Oriented x3, cachectic HEENT: normal conjunctiva, sclera anicteric Respiratory: On 28% Ventimask. Nonlabored breathing. Cardiovascular: Regular rate/rhythm, Normal S1 S2 Gastrointestinal: soft, nontender, nondistended Musculoskeletal: No joint tenderness Neuro: Global weakness Problem List Acute hypoxic respiratory failure secondary to COVID-19 pneumonia complicated with history of COPD Hypertension possible new Lung malignancy, with possible liver mets Paroxysmal atrial fibrillation Severe protein calorie malnutrition, chronic Continue steroids, vitamin supplementation. Patient on Ventimask. CT with concern for malignancy of lung - patient is aware. CT abdomen/pelvis obtained on 02/06, multiple small liver cysts, possibility of early metastasis. Patient informed Patient desaturated with standing and movement. Patient requests to go home at cost. I made him aware he will not do well at home. He stated at this point she was to for possible to keep him comfortable and that means going home. Discussed hospice. Patient is opting for hospice stating given his advanced COPD eand the possibility of lung cancer with metastasis, he might as well be on hospice. Social service consulted to arrange for hospice evaluation. Wean oxygen. Seen by Dr. Prater and Duy treated with amiodarone. Patient converted to sinus rhythm. He experienced junctional rhythm this morning. Continue amiodarone.
[2021-02-15 16:07] VITALS: O2SAT 95
[2021-02-15] MEDS: RIVAROXABAN 20 MG TABLET PO SCH (16:31)
--- NOTE | 2021-02-15 16:47 | P.DS ---
Admission Date: 02/04/21 Discharge Date: 02/15/21 Disposition: HOSPICE-HOME Discharge Condition: FAIR Reason for Admission: COVID-19 pneumonia - Problems (1) Pneumonia due to COVID-19 virus Current Visit: Yes Status: Acute (2) Atrial fibrillation Onset Date: 05/08/18 Current Visit: No Status: Acute Qualifiers: Atrial fibrillation type: paroxysmal Qualified Code(s): I48.0 - Paroxysmal atrial fibrillation (3) COPD with acute exacerbation Current Visit: No Status: Acute (4) Acute respiratory failure with hypoxia Current Visit: Yes Status: Acute Brief History of Present Illness: 80-year-old male with history of COPD, hypertension presented to the emergency department for shortness of breath. Patient reported increasing shortness of breath over the course of last few days, was 88% on room air. Patient was placed on nonrebreather but was tachypneic/dyspneic and was subsequently placed on BiPAP. Patient further evaluated in the emergency department labs were significant for platelet count 105 D-dimer 820 chemistry BUN 26 ferritin 596 alk phos 144 C-reactive protein 32.4. Covid positive. Chest x-ray with emphysema without superimposed acute process right upper lobe lesion concerning for neoplasm. Patient admitted for further management. Hospital Course: Acute hypoxic respiratory failure secondary to COVID-19 pneumonia complicated with history of COPD Hypertension possible new Lung malignancy, with possible liver mets Paroxysmal atrial fibrillation Cachexia. Patient admitted to the medical floor and started on steroids, vitamin supplementation and bronchodilators Patient on Ventimask. CT chest showed multiple spiculated mass concerning for malignancy of lung - patient is aware. CT abdomen/pelvis obtained on 02/06, multiple small liver cysts, possibility of early metastasis. Patient desaturated with standing and movement. He developed atrial fibrillation and was sent to the ICU on amiodarone drip. Patient spontaneously converted to sinus rhythm and was placed on oral amiodarone and anticoagulation with Xarelto. Patient requests to go home at cost. I made him aware he will not do well at home. He stated at this point he is focussed on what will keep him comfortable and that means going home. He opted for hospice taking into consideration his advanced COPD and the likelihood of lung cancer with metastasis. Patient accepted to home with Hospice. He is needing 28% FiO2 via ventimask Patient is discharged to home with hospice today per his wishes. Vital Signs/Physical Exam: Temp Pulse Resp BP Pulse Ox 97.5 F 69 32 H 121/72 96 02/15/21 13:25 02/15/21 13:25 02/15/21 13:25 02/15/21 13:25 02/15/21 13:25 General: Alert, Cachectic, Mild distress HEENT: Mucous membr. moist/pink Neck: JVD not distended Respiratory: Other (Mildly labored breathing.) Cardiovascular: No edema, Regular rate/rhythm, Normal S1 S2 Gastrointestinal: Soft and benign, Non-distended, No tenderness Musculoskeletal: No swelling Integumentary: No rashes Neurological: Normal strength at 5/5 x4 extr Laboratory Data at Discharge: WBC 10.00 K/uL (4.3-10.9) D 02/13/21 05:45 Hgb 13.7 g/dL (13.6-17.9) 02/13/21 05:45 Hct 41.6 % (39.6-49.0) 02/13/21 05:45 Plt Count 308 K/uL (152-406) 02/13/21 05:45 PT 11.1 SECONDS (9.5-12.5) 02/03/21 19:56 INR 0.97 02/03/21 19:56 APTT 31.0 SECONDS (24.3-36.9) 02/03/21 19:56 Sodium 147 mmol/L (136-145) H 02/14/21 07:07 Potassium 4.6 mmol/L (3.5-5.1) 02/14/21 07:07 BUN 38 mg/dL (7-18) H 02/14/21 07:07 Creatinine 0.48 mg/dL (0.55-1.3) L 02/14/21 07:07 Glucose 107 mg/dL (74-106) H 02/14/21 07:07 Magnesium 1.9 mg/dL (1.8-2.4) 02/10/21 04:25 Total Bilirubin 0.3 mg/dL (0.2-1.0) 02/07/21 05:48 AST 14 U/L (15-37) L 02/07/21 05:48 ALT 15 U/L (12-78) 02/07/21 05:48 Alkaline Phosphatase 104 U/L (45-117) 02/07/21 05:48 Triglycerides 71 mg/dL (<150) 02/04/21 07:15 Cholesterol 155 mg/dL (<200) 02/04/21 07:15 HDL Cholesterol 61 mg/dL (40-60) H 02/04/21 07:15 Cholesterol/HDL Ratio 2.54 02/04/21 07:15 Lipase 146 U/L (73-393) 02/03/21 19:56 Home Medications: EPINEPHrine [Primatene Mist] 1 puff IH PRN 12/18/20 Albuterol Neb [Proventil 0.083% Neb Soln] 2.5 mg IH QID #120 amp 02/15/21 Amiodarone HCl [Cordarone*] 200 mg PO DAILY #30 tab 02/15/21 Ascorbic Acid [Vitamin C*] 500 mg PO QID #120 tablet 02/15/21 Benzonatate [Tessalon Perle*] 100 mg PO TID PRN #30 cap 02/15/21 Cholecalciferol (Vitamin D3) [Vitamin D3] 4,000 unit PO DAILY #60 capsule 02/15/21 Fluticasone [Flonase 50MCG Nasal [place]*] 2 sprays JONE BID PRN #1 btl 02/15/21 Nebulizer [Truneb Nebulizer] 1 each MC QID #1 each 02/15/21 Rivaroxaban [Xarelto] 20 mg PO DAILY #30 tablet 02/15/21 Thiamine HCl [Vitamin B-1*] 200 mg PO DAILY #60 tablet 02/15/21 Tiotropium [place] [Spiriva Respimat] 4 gm IH DAILY #30 mist.inhal 02/15/21 Zinc Sulfate [Zinc Sulfate*] 220 mg PO DAILY #30 cap 02/15/21 predniSONE [Prednisone*] 20 mg PO BID #21 tab 02/15/21 New Medications: Amiodarone HCl [Cordarone*] 200 mg PO DAILY #30 tab Fluticasone [Flonase 50MCG Nasal [place]*] 2 sprays JONE BID PRN #1 btl PRN Reason: Nasal Congestion predniSONE [Prednisone*] 20 mg PO BID #21 tab Albuterol Neb [Proventil 0.083% Neb Soln] 2.5 mg IH QID #120 amp Tiotropium [place] [Spiriva Respimat] 4 gm IH DAILY #30 mist.inhal Benzonatate [Tessalon Perle*] 100 mg PO TID PRN #30 cap PRN Reason: Cough Nebulizer [Truneb Nebulizer] 1 each MC QID #1 each Thiamine HCl [Vitamin B-1*] 200 mg PO DAILY #60 tablet Ascorbic Acid [Vitamin C*] 500 mg PO QID #120 tablet Cholecalciferol (Vitamin D3) [Vitamin D3] 4,000 unit PO DAILY #60 capsule Rivaroxaban [Xarelto] 20 mg PO DAILY #30 tablet Zinc Sulfate [Zinc Sulfate*] 220 mg PO DAILY #30 cap Diet: AHA Activity: Fall precautions Followup: Unknown,U [Primary Care Provider] - Time spent managing pt's care (in minutes): 40
[2021-02-15 19:13] VITALS: BP 124/67; TEMP 97.8
== END 2021-02-15 17:35 | disposition hospice, home (50) | DRG 177 ==
LOC: ER 19:34 → ERHOLD 02-04 05:47 → 4TH 02-04 10:54 → 3RD-ICU 02-08 03:40 → 4TH 02-12 18:17
PROVIDERS: ADMIT Hospitalist; ATTEND Hospitalist
DX: U07.1 COVID-19 (principal); J12.82 Pneumonia due to coronavirus disease 2019; J96.01 Acute respiratory failure with hypoxia; E43 Unspecified severe protein-calorie malnutrition; C34.90 Malignant neoplasm of unspecified part of unspecified bronchus or lung; C78.7 Secondary malignant neoplasm of liver and intrahepatic bile duct; Z68.1 Body mass index [BMI] 19.9 or less, adult; R64 Cachexia; J44.0 Chronic obstructive pulmonary disease with (acute) lower respiratory infection; J44.1 Chronic obstructive pulmonary disease with (acute) exacerbation; I48.0 Paroxysmal atrial fibrillation; I10 Essential (primary) hypertension; Z86.73 Personal history of transient ischemic attack (TIA), and cerebral infarction without residual deficits
CPT/HCPCS: 36415; 71045; 71275; 74177; 76857; 80048; 80053; 80061; 80076; 82728; 82805; 82947; 83605; 83690; 83735; 84145; 84439; 84443; 84484; 85025; 85027; 85379; 85610; 85730; 86140; 87040; 93005; 93306; 94640; 94660; 94760; 96374; 96375; 97116; 97161; 97164; 97530; 99284; J0282; J1160; J1650; J2920; J2930; J3475; J7030; J7050; J7060; J7512; J7605; Q9967; U0003

== ENCOUNTER 2021-03-03 14:55 | Inpatient (IN) | payer OTHER ==
[2021-03-03 15:41] LABS: Protime INR 1.57
[2021-03-03 15:43] LABS: Absolute Lymphocytes (CBC) 0.3 K/uL (0.7-4.9); Basophils % 0.1 % (0-1.3); Hematocrit 34.4 % (39.6-49.0); Lymphocytes % 1.2 % (15.3-44.8); MPV 7.9 fL (7.6-11.3); RBC Red Blood Cell Count 3.68 M/uL (4.33-5.43)
[2021-03-03] MEDS ORDERED: NA CHLORIDE 0.9% 1,000 ML ONE ×3 (15:59→17:36)
--- NOTE | 2021-03-03 16:11 | RAD REPORT ---
EXAM DESCRIPTION: RAD - Chest Single View - 03/03/2021 3:52 pm CLINICAL HISTORY: SOB COMPARISON: Chest Single View dated 02/09/2021; Chest Single View dated 02/06/2021; Chest Single View dated 02/03/2021; Chest Single View dated 12/19/2020; Chest For Pe Angio dated 02/03/2021 FINDINGS: Masslike opacity again noted in the right upper lobe. Worsened aeration in the right lung base with increased right pleural effusion. Increased masslike consolidation in the left suprahilar r egion. Possible free air underneath the left hemidiaphragm. Emphysema. No fractures. IMPRESSION: 1. Worsened aeration in the lungs bilaterally enlarging small right effusion that may re present worsening pneumonia and parapneumonic effusion. 2. Possible free air subjacent to the left hemidiaphragm. Recommend clinical correlation. CT of the a bdomen could better assess. 3. Right upper lobe lung mass concerning for neoplasm.
[2021-03-03 16:19] LABS: Albumin 1.9 g/dL (3.4-5.0); Bilirubin Direct 0.6 mg/dL (0-0.2); Bilirubin Total 0.9 mg/dL (0.2-1.0); Magnesium 2.2 mg/dL (1.8-2.4); Protein, Total 6.3 g/dL (6.4-8.2)
[2021-03-03 16:23] LABS: Potassium 6.4 mmol/L (3.5-5.1); Troponin (Emerg Dept Use Only) 1.57 ng/mL (0.0-0.045)
[2021-03-03 16:27] LABS: Ferritin > 40000.0 ng/mL (26-388)
[2021-03-03] MEDS ORDERED: CEFTRIAXONE/SWI 1gm 1 GM/10 ML SYR ONE (16:30)
--- NOTE | 2021-03-03 17:05 | RAD REPORT ---
EXAM DESCRIPTION: CTChest Abd Pelvis Wo Con - 03/03/2021 4:56 pm CLINICAL HISTORY: SOB COMPARISON: Chest For Pe Angio dated 02/03/2021 TECHNIQUE: CT of the chest, abdomen, and pelvis was performed. All CT scans are performed using dose optimization technique as appropriate and may include automated exposure control or mA/KV adjustment according to patient size. FINDINGS: Thorax: Chest Wall: No abnormal mass Lungs: Spiculated right upper lobe lesion measuring 3.7 cm is unchanged. Increasing right upper lobe and left upper lobe consolidative airspace disease. There is also increased right lower lobe airspace consolidation advanced emphysema. . Pleura: No effusions or pneumothorax. Leah/Mediastinum: No lymphadenopathy. Thoracic Aorta: No aneurysm. Aorta/Pulmonary Arteries: Unremarkable Heart: Normal size. Scattered coronary artery calcifications. Abdomen/Pelvis: Liver: Too small to characterize liver lesions which are statistically benign. Biliary: No biliary ductal dilatation. Stomach: No significant focal abnormality. Duodenum: No significant focal abnormality. Pancreas: No significant abnormality. Spleen: No significant abnormality. Adrenal: No suspicious lesions. Kidney/ureter: No hydronephrosis. No renal calculi. Low-density left renal lesion which is likely a c yst. Retroperitoneum: No retroperitoneal adenopathy. Vascular: No aneurysm. Bowel: No significant focal abnormality. Peritoneum: Trace ascites. Bladder: Decompressed via [place] catheter. Reproductive: No adnexal masses. Bones: No acute fracture. Other: n/a IMPRESSION: 1. Increasing scattered areas of consolidative airspace disease concerning for pneumonia . The spiculated right upper lobe lung mass which is highly concerning for primary bronchogenic carci noma is similar. 2. No acute intra-abdominal abnormality.
[2021-03-03] MEDS ORDERED: ALBUTEROL 2.5 MG/3 ML NEB SOL ONE (17:19)
[2021-03-03] MEDS ORDERED: SOD POLYSTYREN SUL 15 GM/60 ML UCUP ONE (17:20)
[2021-03-03] MEDS ORDERED: INSULIN -REGULAR HUMAN 50 UNIT/0.5 ML ML ONE (17:20)
[2021-03-03] MEDS ORDERED: D50W 25 GM/50 ML SYRINGE IV ONE (17:21)
[2021-03-03] MEDS ORDERED: CALCIUM GLUCONATE 1 GM IVPB 1 GM/50 ML BAG IV ONE (17:21)
[2021-03-03 17:23] LABS: SARS-COV-2 RT PCR POSITIVE (NEGATIVE)
[2021-03-03] MEDS ORDERED: ENOXAPARIN 40 MG/0.4 ML SQ ONE (17:36)
[2021-03-03 17:53] LABS: Arterial Blood Carboxyhemoglob 0.9 % (0-1.5); Blood O2 Saturation 98.2 % (92-98.5)
[2021-03-03] MEDS ORDERED: VANCOMYCIN/NS 1 gm 1 GM/250 ML BAG IVPB ONE (18:00)
[2021-03-03 18:13] LABS: Urine Blood Negative (Negative); Urine Glucose Negative (Negative); Urine Protein 3+ (Negative); Urine pH >=9.0 (5.0-7.0)
--- NOTE | 2021-03-03 18:42 | ER ---
Nurse's Notes [facility] Name: Kalpesh Nolen Age: 80 yrs Sex: Male : 1940 Arrival Date: 03/03/2021 Time: 15:02 Bed 3 Private MD: Diagnosis: Acute respiratory failure with hypoxia;Hypotension, unspecified;Abnormal results of liver function studies;Acute kidney failure;Dehydration;Coronavirus infection, unspecified Presentation: 03/03 15:33 Acuity: BOB 2 jd3 15:33 Chief complaint: EMS states: "we were called out by the hospice nurse who reported that jd3 the pt was having a hard time breathing. the nurse reported that she was checking in on the pt and found the pt without oxygen for an unknown amount of time, or at least a couple of days. the nurse reported that he is full code and could not find the paperwork or get in contact with the son/family. pt was low 80's at fist and came up with a non-rebreather. blood pressure had the systolics in the 70's. the pt was initially unresponsive, but started responding after we got oxygen back on him.". Coronavirus screen: difficulty breathing, Client presents with at least one sign or symptom that may indicate coronavirus-19. Standard/surgical mask placed on the client. Provider contacted for isolation considerations. Ebola Screen: Patient negative for fever greater than or equal to 101.5 degrees Fahrenheit, and additional compatible Ebola Virus Disease symptoms. Initial Sepsis Screen: Does the patient meet any 2 criteria? RR > 20 per min. Temp <36.0*C (96.8*F)) or > 38.3*C (100.9*F). Yes Does the patient have a suspected source of infection? No. Patient's initial sepsis screen is negative. Risk Assessment: Do you want to hurt yourself or someone else? Patient reports no desire to harm self or others. Onset of symptoms was March 03, 2021. 15:33 Method Of Arrival: EMS: [facility] jd3 Historical: - Allergies: 15:57 No Known Allergies; jd3 - PMHx: 15:57 COPD; CVA; jd3 - Immunization history:: Adult Immunizations unknown. - Social history:: Smoking status: unknown. Screenin:07 Abuse screen: Denies threats or abuse. Nutritional screening: Intervention for positive jd3 screen: ED Physician notified. Tuberculosis screening: No symptoms or risk factors identified. Fall Risk IV access (20 points). Ambulatory Aid- None/Bed Rest/Nurse Assist (0 pts). Gait- Normal/Bed Rest/Wheelchair (0 pts) Mental Status- Oriented to own ability (0 pts). Total Cortes Fall Scale indicates No Risk (0-24 pts). Assessment: 16:00 General: Appears distressed, uncomfortable, ill, slender, emaciated, Behavior is calm, jd3 cooperative, drowsy. Pain: Denies pain. Neuro: Level of Consciousness is awake, obeys commands, Oriented to person, place, time, situation. Cardiovascular: Capillary refill < 3 seconds Patient's skin is warm and dry. Rhythm is regular. Respiratory: Reports shortness of breath at rest Airway is patent Respiratory effort is even, shallow, Respiratory pattern is symmetrical, tachypnea Breath sounds are diminished bilaterally. GI: No signs and/or symptoms were reported involving the gastrointestinal system. : No signs and/or symptoms were reported regarding the genitourinary system. EENT: No signs and/or symptoms were reported regarding the EENT system. Derm: Skin is intact, is thin, Skin is dry, Skin is pale, Skin temperature is cool. Musculoskeletal: No signs and/or symptoms reported regarding the musculoskeletal system. 17:21 Reassessment: No changes from previously documented assessment. Patient and/or family jd3 updated on plan of care and expected duration. Pain level reassessed. Patient is alert, oriented x 3, equal unlabored respirations, skin warm/dry/pink. 18:31 Reassessment: Patient and/or family updated on plan of care and expected duration. Pain jd3 level reassessed. Patient is alert, oriented x 3, equal unlabored respirations, skin warm/dry/pink. provider at bedside discussing plan of care. 19:15 Reassessment: When talking with Pt, he stated " I want to go now" Pt visiting with [facility] [employer]AG INSPECT[facility] and stated " I want to go now". . Vital Signs: 15:35 BP 73 / 52; Pulse 79; Resp 34 S; Temp 96.2(A); Pulse Ox 100% on 2 lpm NC; Weight 43.09 jd3 kg (R); Height 6 ft. 1 in. (185.42 cm) (R); Pain 0/10; 16:07 BP 70 / 43; Pulse 72; Resp 27 S; Pulse Ox 100% on 5 lpm NC; jd3 17:21 BP 103 / 43; Pulse 70; Resp 33 S; Pulse Ox 98% on Nebulizer Mask; jd3 18:32 BP 107 / 65; Pulse 74; Resp 32 S; Temp 97.0; Pulse Ox 99% on BiPAP; jd3 15:35 Body Mass Index 12.53 (43.09 kg, 185.42 cm) jd3 ED Course: 15:02 Patient arrived in ED. bd 15:04 Yonis Rubio, TUCKER is PHCP. pm1 15:04 Cristóbal Fletcher MD is Attending Physician. pm1 15:22 EKG done, by ED staff, reviewed by Yonis Rubio NP. kj1 15:33 Irving Bradshaw RN is Primary Nurse. jd3 15:33 Triage completed. jd3 15:52 XRAY Chest (1 view) In Process Unspecified. EDMS 16:00 Arm band placed on. EKG completed in triage. Results shown to MD. jd3 16:07 Patient has correct armband on for positive identification. Placed in gown. Bed in low jd3 position. Call light in reach. Side rails up X2. media monitor on. Pulse ox on. NIBP on. 16:56 Chest Abd Pelvis Wo Con In Process Unspecified. EDMS 18:11 BIPAP Sent. ch5 18:36 US Abdomen Limited In Process Unspecified. EDMS 18:42 Heath Bass is Hospitalizing Provider. pm1 Administered Medications: 15:25 Drug: NS 0.9% 1000 ml Route: IV; Rate: 1000 ml; Site: right antecubital; jd3 16:25 Follow up: Response: No adverse reaction; IV Status: Completed infusion jd3 16:12 Drug: Rocephin (cefTRIAXone) 1 grams Route: IV; Rate: calculated rate; Site: right ch5 antecubital; 17:00 Follow up: Response: No adverse reaction; IV Status: Completed infusion jd3 16:12 Drug: NS 0.9% 1000 ml Route: IV; Rate: 1000 ml; Site: right antecubital; ch5 17:00 Follow up: Response: No adverse reaction; IV Status: Completed infusion jd3 17:15 Drug: Lovenox (enoxaparin) 1 mg/kg Route: Sub-Q; Site: left upper abdomen; ch5 18:15 Follow up: Response: No adverse reaction jd3 17:16 Drug: NS 0.9% 1000 ml Route: IV; Rate: 125 ml/hr; Site: left upper arm; ch5 17:19 Drug: Insulin Regular Human 10 units {Co-Signature: ch5 (Manuel Marie RN).} Route: jd3 IVP; Site: right antecubital; 18:00 Follow up: Response: No adverse reaction jd3 17:19 Drug: Albuterol 7.5 mg Route: Inhalation; jd3 18:00 Follow up: Response: No adverse reaction jd3 17:19 Drug: D50W 50 ml Route: IVP; Site: right antecubital; jd3 18:15 Follow up: Response: No adverse reaction jd3 17:20 Drug: Calcium Gluconate 1 grams Route: IVPB; Infused Over: 60 mins; Site: right jd3 antecubital; 18:00 Follow up: Response: No adverse reaction; IV Status: Completed infusion jd3 17:30 Drug: vancoMYCIN 1 grams Route: IVPB; Infused Over: 2 hrs; Site: right forearm; jd3 19:33 Drug: Ativan (LORazepam) 1 mg Route: IVP; Site: right forearm; ea 19:34 Drug: fentaNYL (PF) 50 mcg Route: IVP; Site: right forearm; ea 19:59 Not Given (Physician Discretion): Kayexalate (polystyrene) 45 grams PO once jb4 Outcome: 18:42 Decision to Hospitalize by Provider. pm1 20:28 Patient left the ED. jb4 Signatures: Dispatcher [employer] EDMS May Gutiérrez Patrick, NP RAG INSPECTOR pm1 Fab Genao RN RN jb4 Lesia Cardenas RN RN ea Davies, Jonathon, RN RN jd3 Jackson, Kandis kj1 Heath, Christopher, RN RN ch5 Manuel Marie RN ch5 Corrections: (The following items were deleted from the chart) 16:00 15:59 BP 73 / 52; Pulse 79bpm; Resp 34bpm; Spontaneous; Pulse Ox 100% 2 lpm Nasal jd3 Cannula; Temp 96.2F Axillary; 43.09 kg Reported; Height 6 ft. 1 in. Reported; BMI: 12.5; Pain 0/10; jd3 17:21 16:00 Neuro: Level of Consciousness is awake, obeys commands, lethargic, Oriented to jd3 person, place, time, situation, [facility] 17:22 16:07 BP 70 / 43; Pulse 72bpm; Resp 17bpm; Spontaneous; Pulse Ox 100% 5 lpm Nasal jd3 Cannula; jd3 18:37 18:32 Pulse 74bpm; Resp 32bpm; Spontaneous; Pulse Ox 99% BiPAP; Temp 97.0F; jd3 j
--- NOTE | 2021-03-03 18:42 | EDPHYS ---
Physician Documentation [facility] Name: Kalpesh Nolen Age: 80 yrs Sex: Male : 1940 Arrival Date: 03/03/2021 Time: 15:02 Bed 3 Private MD: ED Physician Cristóbal Fletcher HPI: 03/03 15:33 This 80 yrs old Male presents to ER via EMS with complaints of Shortness of pm1 breath. 16:03 The patient has shortness of breath at rest. Onset: The symptoms/episode began/occurred pm1 and became worse today. Duration: The symptoms are continuous. The patient's shortness of breath is alleviated by application of supplemental oxygen. Associated signs and symptoms: Pertinent negatives: chest pain, fever. Severity of symptoms: in the emergency department the symptoms are worse. The patient has not recently seen a physician. Patient presenting to the ER today with complaints of shortness of breath. Patient was admitted in February 04, 2021 and discharged on February 15, 2021. Patient was diagnosed with covid pneumonia, COPD with acute exacerbation, respiratory failure with hypoxia, and possible metastatic lung cancer. Patient was discharged to hospice. Patient reports that he has not been eating or drinking well for the past 3 days. Was checked on by his hospice nurse today and he was found in the bed without oxygen and decreased responsiveness. EMS applied supplemental oxygen and he regained awareness. He arrives to the ER complaining of shortness of breath and currently would like to revoke his hospice status. Historical: - Allergies: 15:57 No Known Allergies; jd3 - PMHx: 15:57 COPD; CVA; jd3 - Immunization history:: Adult Immunizations unknown. - Social history:: Smoking status: unknown. ROS: 15:33 Cardiovascular: Negative for chest pain, palpitations, and edema. pm1 15:33 Eyes: Negative for injury, pain, redness, and discharge, ENT: Negative for injury, pain, and discharge. 15:33 Abdomen/GI: Negative for abdominal pain, nausea, vomiting, diarrhea, and constipation, Back: Negative for injury and pain, MS/Extremity: Negative for injury and deformity, Skin: Negative for injury, rash, and discoloration, Neuro: Negative for headache, weakness, numbness, tingling, and seizure. 15:33 Constitutional: Positive for poor PO intake, Patient reports decreased or no intake of food for the past 3 days, Negative for fever. 15:33 Respiratory: Positive for shortness of breath, Negative for cough. 15:33 All other systems are negative. Exam: 15:33 Head/Face: Normocephalic, atraumatic. pm1 15:33 Skin: Warm, dry with normal turgor. Normal color with no rashes, no lesions, and no evidence of cellulitis. MS/ Extremity: Pulses equal, no cyanosis. Neurovascular intact. Full, normal range of motion. 15:33 Constitutional: The patient appears emaciated, frail, in obvious distress, obviously ill, unkempt. 15:33 Eyes: Periorbital structures: are sunken, Extraocular movements: intact throughout, Conjunctiva: no acute changes, no injection, Sclera: no acute changes, icterus, is not appreciated. 15:33 ENT: Mouth: Lips: dry, Oral mucosa: pink and intact, dry. 15:33 Cardiovascular: Rate: normal, Rhythm: regular, Pulses: no pulse deficits are appreciated, Edema: is not appreciated. 15:33 Respiratory: moderate respiratory distress is noted, Respirations: tachypnea, Breath sounds: decreased breath sounds. 15:33 Abdomen/GI: Palpation: abdomen is soft and non-tender, in all quadrants. 15:33 Neuro: Exam negative for acute changes, Orientation: to person, place, situation, Mentation: is normal, Motor: moves all fours. Vital Signs: 15:35 BP 73 / 52; Pulse 79; Resp 34 S; Temp 96.2(A); Pulse Ox 100% on 2 lpm NC; Weight 43.09 jd3 kg (R); Height 6 ft. 1 in. (185.42 cm) (R); Pain 0/10; 16:07 BP 70 / 43; Pulse 72; Resp 27 S; Pulse Ox 100% on 5 lpm NC; jd3 17:21 BP 103 / 43; Pulse 70; Resp 33 S; Pulse Ox 98% on Nebulizer Mask; jd3 18:32 BP 107 / 65; Pulse 74; Resp 32 S; Temp 97.0; Pulse Ox 99% on BiPAP; jd3 15:35 Body Mass Index 12.53 (43.09 kg, 185.42 cm) jd3 MDM: 15:06 Patient medically screened. blas 18:04 Physician consultation: Heath Shelia was contacted at 18:05, regarding admission, pm1 patient's condition, and will see patient. 18:05 Data reviewed: vital signs. pm1 18:18 ED course: Patient understands his poor prognosis based on his lab and imaging findings pm1 today. 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 Patient wants to comfortably and does not want to be a full code. 18:18 Differential diagnosis: CHF exacerbation, Chronic Obstructive Pulmonary Disease pm1 pneumonia, Sepsis. 03/03 15:11 Order name: Basic Metabolic Panel pm1 03/03 15:11 Order name: CBC with Diff; Complete Time: 20:10 pm1 03/03 15:11 Order name: LFT's; Complete Time: 16:23 pm1 03/03 15:11 Order name: Magnesium; Complete Time: 16:23 pm1 03/03 15:11 Order name: NT PRO-BNP; Complete Time: 16:23 pm1 03/03 15:11 Order name: PT-INR; Complete Time: 16:23 pm1 03/03 15:11 Order name: Troponin (emerg Dept Use Only); Complete Time: 16:23 pm1 03/03 15:12 Order name: Basic Metabolic Panel; Complete Time: 16:23 EDMS 03/03 15:16 Order name: CORONAVIRUS (COVID-19) : Document "Date of Symptom Onset" if Symptomatic. pm03/03 15:16 Order name: Flu pm03/03 15:16 Order name: Blood Culture Adult (2) pm03/03 15:16 Order name: CRP; Complete Time: 16:29 pm03/03 15:16 Order name: Ferritin; Complete Time: 16:29 pm03/03 15:11 Order name: XRAY Chest (1 view); Complete Time: 16:14 pm03/03 15:34 Order name: Procalcitonin; Complete Time: 16:29 pm03/03 15:34 Order name: Lactate; Complete Time: 16:24 pm1 03/03 15:54 Order name: Urine Microscopic Only pm03/03 15:55 Order name: Urine Microscopic Only; Complete Time: 19:08 EDMS 03/03 16:29 Order name: ABG; Complete Time: 18:59 pm1 03/03 16:34 Order name: CPK; Complete Time: 17:36 pm1 03/03 16:52 Order name: Chest Abd Pelvis Wo Con; Complete Time: 17:06 EDMS 03/03 17:23 Order name: COVID-19/FLU A+B; Complete Time: 17:36 EDMS 03/03 18:13 Order name: Urine Dipstick-Ancillary; Complete Time: 18:59 EDMS 03/03 19:00 Order name: Urine Culture EDNM 03/03 19:08 Order name: Lactate Sepsis 2 HR Follow-up; Complete Time: 19:08 EDMS 03/03 20:07 Order name: Manual Differential; Complete Time: 20:10 EDNM 03/03 15:11 Order name: EKG; Complete Time: 15:12 pm1 03/03 15:11 Order name: Cardiac monitoring; Complete Time: 15:45 pm1 03/03 15:11 Order name: EKG - Nurse/Tech; Complete Time: 15:22 pm1 03/03 15:11 Order name: IV Saline Lock; Complete Time: 15:45 pm1 03/03 15:11 Order name: Labs collected and sent; Complete Time: 15:45 pm1 03/03 15:11 Order name: O2 Per Protocol; Complete Time: 15:45 pm1 03/03 15:11 Order name: O2 Sat Monitoring; Complete Time: 15:45 pm1 03/03 17:56 Order name: US Abdomen Limited; Complete Time: 19:24 pm1 03/03 17:57 Order name: BIPAP pm1 Administered Medications: 15:25 Drug: NS 0.9% 1000 ml Route: IV; Rate: 1000 ml; Site: right antecubital; jd3 16:25 Follow up: Response: No adverse reaction; IV Status: Completed infusion jd3 16:12 Drug: Rocephin (cefTRIAXone) 1 grams Route: IV; Rate: calculated rate; Site: right ch5 antecubital; 17:00 Follow up: Response: No adverse reaction; IV Status: Completed infusion jd3 16:12 Drug: NS 0.9% 1000 ml Route: IV; Rate: 1000 ml; Site: right antecubital; 5 17:00 Follow up: Response: No adverse reaction; IV Status: Completed infusion jd3 17:15 Drug: Lovenox (enoxaparin) 1 mg/kg Route: Sub-Q; Site: left upper abdomen; ch5 18:15 Follow up: Response: No adverse reaction jd3 17:16 Drug: NS 0.9% 1000 ml Route: IV; Rate: 125 ml/hr; Site: left upper arm; ch5 17:19 Drug: Insulin Regular Human 10 units {Co-Signature: 5 (Manuel Marie RN).} Route: jd3 IVP; Site: right antecubital; 18:00 Follow up: Response: No adverse reaction jd3 17:19 Drug: Albuterol 7.5 mg Route: Inhalation; jd3 18:00 Follow up: Response: No adverse reaction jd3 17:19 Drug: D50W 50 ml Route: IVP; Site: right antecubital; jd3 18:15 Follow up: Response: No adverse reaction jd3 17:20 Drug: Calcium Gluconate 1 grams Route: IVPB; Infused Over: 60 mins; Site: right jd3 antecubital; 18:00 Follow up: Response: No adverse reaction; IV Status: Completed infusion jd3 17:30 Drug: vancoMYCIN 1 grams Route: IVPB; Infused Over: 2 hrs; Site: right forearm; jd3 19:33 Drug: Ativan (LORazepam) 1 mg Route: IVP; Site: right forearm; ea 19:34 Drug: fentaNYL (PF) 50 mcg Route: IVP; Site: right forearm; ea 19:59 Not Given (Physician Discretion): Kayexalate (polystyrene) 45 grams PO once jb4 Disposition: 03/04 06:43 Co-signature as Attending Physician, Cristóbal Fletcher MD I agree with the assessment and blas plan of care. Disposition Summary: 03/03/21 18:42 Hospitalization Ordered Hospitalization Status: Inpatient Admission pm1 Provider: Heath Bass pmAshutosh Condition: Stable pm1 Problem: new pm1 Symptoms: have improved pm1 Bed/Room Type: Standard pm1 Location: Intensive Care Unit(03/03/21 19:46) mw Room Assignment: 3-(03/03/21 19:46) mw Diagnosis - Acute respiratory failure with hypoxia pm1 - Hypotension, unspecified pm1 - Abnormal results of liver function studies pm1 - Acute kidney failure pm1 - Dehydration pm1 - Coronavirus infection, unspecified pm1 Discharge Instructions: - Discharge Summary Sheet ch5 Forms: - Medication Reconciliation Form pm1 - SBAR form ch5 Signatures: Dispatcher [employer] EDMS Judith Pacheco RN RN Cristóbal Pierre MD MD cha Marinas, Patrick, TUCKER FINANCIAL EXAMINER pm1 Lesia Cardenas RN RN Irving Townsend RN RN jManuel Mcghee RN RN ch5 Fab Genao RN jb4 Manuel Marie RN ch5 Corrections: (The following items were deleted from the chart) 03/03 16:07 15:16 Influenza Screen (A ordered. EDMS EDMS 16:08 15:16 CORONAVIRUS ordered. EDMS EDMS 16:51 16:19 Abdomen Pelvis W Con+CT.RAD.BRZ ordered. EDMS EDMS 16:52 16:19 Chest For PE Angio+CT.RAD.BRZ ordered. EDNM EDMS 19:46 18:42 Telemetry/MedSurg (Inpatient) [facility] 19:46 18:42 [facility]
[2021-03-03 18:58] LABS: Urine Bacteria LOADED /HPF (NONE SEEN); Urine RBC <5 /HPF (NONE SEEN)
[2021-03-03 18:59] LABS: Calcium Oxalate Crystals- Ur MANY (NONE SEEN); Urine Triple Phosphate Crystal MANY (NONE SEEN)
--- NOTE | 2021-03-03 19:18 | RAD REPORT ---
EXAM DESCRIPTION: US - Abdomen Exam Limited - 03/03/2021 6:36 pm CLINICAL HISTORY: Elevated liver enzymes COMPARISON: Abdomen Pelvis W Contrast dated 02/06/2021 FINDINGS: The gallbladder demonstrates no gallstones. Gallbladder sludge is present. No pericholecys tic fluid or gallbladder wall thickening. The common bile duct is normal measuring 5 mm. The liver demonstrates no findings of intrahepatic biliary dilatation. IMPRESSION: Negative for cholelithiasis or acute cholecystitis. Gallbladder sludge is noted. No bili lisa ductal dilatation.
[2021-03-03] MEDS ORDERED: LORazepam 2 MG/ML VIAL ONE (19:50)
[2021-03-03] MEDS ORDERED: FENTANYL CITR 100 MCG/2 ML ONE (19:51)
[2021-03-03 20:06] LABS: Platelet Estimate ADEQ
[2021-03-03 20:07] LABS: Blood Morphology Comment NOT SEEN (NOT SEEN)
--- NOTE | 2021-03-03 20:31 | P.HP ---
Certification for Inpatient Patient admitted to: Inpatient With expected LOS: >2 Midnights Patient will require the following post-hospital care: None Practitioner: I am a practitioner with admitting privileges, knowledge of patient current condition, hospital course, and medical plan of care. Services: Services provided to patient in accordance with Admission requirements found in Title 42 Section 412.3 of the Code of Federal Regulations Patient History Date of Service: 03/03/21 Reason for admission: Respiratory failure History of Present Illness: 80-year-old male with history of COPD, atrial fibrillation on chronic anticoagulation therapy, chronic respiratory failure, COVID-19 pneumonia, suspected lung cancer with mets who is on hospice at home was found by his hospice nurse to be altered and hypoxic at home, patient reportedly was full code, hospice nurse called EMS and transported him to the emergency department for evaluation. Patient was evaluated in the emergency department and placed on BiPAP for hypoxic/hypercapnic respiratory failure. Patient's mental status quickly improved labs returned which were significant for white blood cell count 24.5 potassium 6.4 BUN 46 creatinine 1.91 GFR 34 glucose 165 ferritin greater than 40,000 AST 7107 ALT 1589 alk phos 159 troponin I 0.57 C-reactive protein 122 procalcitonin 10.8 BNP 16,800 urinalysis with loaded bacteria 3+ leuk esterase. Patient extremely ill. Mental status improved greatly after initiation of BiPAP therapy, patient was alert and oriented x4, initially re ported that he was a full code, after further discussion in conjunction with ER provider, ER nurse in description of patient's current clinical condition he reported that he "wanted to go" when asked what he meant patient says that he is ready to and he wanted to now. This was clarified multiple times patient is adamant that he is ready to and does not want any further aggressive medical therapies including IV fluids, IV antibiotics, supplemental oxygen greater than nasal cannula. Patient wishes for DNR/DNI and comfort measures including anxiolytics and analgesics. Order was drafted and signed by myself, ER provider, patient. Case was also discussed with patient's son who understood and was amendable with plan. Will admit for comfort measures and possible transition to hospice tomorrow. Allergies No Known Allergies Allergy (Verified 05/05/18 17:36) Home Medications: EPINEPHrine [Primatene Mist] 1 puff IH PRN 07/01/21 Albuterol Neb [Proventil 0.083% Neb Soln] 2.5 mg IH QID #120 amp 02/15/21 Amiodarone HCl [Cordarone*] 200 mg PO DAILY #30 tab 02/15/21 Ascorbic Acid [Vitamin C*] 500 mg PO QID #120 tablet 02/15/21 Benzonatate [Tessalon Perle*] 100 mg PO TID PRN #30 cap 02/15/21 Cholecalciferol (Vitamin D3) [Vitamin D3] 4,000 unit PO DAILY #60 capsule 02/15/21 Fluticasone [Flonase 50MCG Nasal [place]*] 2 sprays JONE BID PRN #1 btl 02/15/21 Nebulizer [Truneb Nebulizer] 1 each MC QID #1 each 02/15/21 Rivaroxaban [Xarelto] 20 mg PO DAILY #30 tablet 02/15/21 Thiamine HCl [Vitamin B-1*] 200 mg PO DAILY #60 tablet 02/15/21 Tiotropium [place] [Spiriva Respimat] 4 gm IH DAILY #30 mist.inhal 02/15/21 Zinc Sulfate [Zinc Sulfate*] 220 mg PO DAILY #30 cap 02/15/21 predniSONE [Prednisone*] 20 mg PO BID #21 tab 02/15/21 - Past Medical/Surgical History Diabetic: No -: COPD -: CVA -: Hypertension -: Suspected lung cancer with mets -: Atrial fibrillation on chronic anticoagulation the -: None Psychosocial/ Personal History: Lives at home with his son - Family History Mother -: Heart disease, Cancer Father -: Heart disease, Cancer - Social History Alcohol use: Yes CD- Drugs: No Caffeine use: Yes Place of Residence: Home Review of Systems 10-point ROS is otherwise unremarkable General: Weakness, Malaise Respiratory: Cough, Shortness of Breath Physical Examination - Physical Exam General: Alert, Oriented x3, Cachectic, Demented, Other (Ill) HEENT: Atraumatic Neck: Supple Respiratory: Diminished, Expiratory wheezes Cardiovascular: No edema, Normal S1 S2 Capillary refill: <2 Seconds Gastrointestinal: Normal bowel sounds Musculoskeletal: No contractures, No erythema, No tenderness Integumentary: No significant lesion, No tenderness/swelling, No erythema Neurological: Normal speech, Normal tone, Sensation intact - Studies Laboratory Data (last 24 hrs) 03/03/21 15:21: PT 18.1 H, INR 1.57 03/03/21 15:21: WBC 24.50 H*, Hgb 10.8 L, Hct 34.4 L, Plt Count 349 03/03/21 15:21: Sodium 140, Potassium 6.4 H*, BUN 46 H, Creatinine 1.91 H, Glucose 165 H, Magnesium 2.2, Total Bilirubin 0.9, AST 7107 H*, ALT 1589 H*, Alkaline Phosphatase 159 H Assessment and Plan - Plan Assessment: Acute on chronic hypoxic/hypercapnic respiratory failure secondary to COPD with exacerbation complicated with suspected lung cancer with metastasis with multiorgan dysfunction Elevated aminotransferase levels Acute renal failure with hyperkalemia NSTEMI UTI Plan: Acute on chronic hypoxic/hypercapnic respiratory failure secondary to COPD with exacerbation complicated with suspected lung cancer with metastasis with multiorgan dysfunction Elevated aminotransferase levels Acute renal failure with hyperkalemia NSTEMI UTI Patient wishes for comfort measures. Patient does not want any IV fluids, IV antibiotics, invasive or noninvasive ventilation or oxygen greater than nasal cannula. Patient does prefer medications for analgesia/anxiolysis. Patient understands that his is expectant, patient reports that he "wants to n ow". Informed patient that we cannot tell him when he will pass but given his clinical condition it is likely. Case also discussed with patient's son who is understanding of situation. If patient survives at the evening will likely transition to inpatient versus outpatient hospice tomorrow. DVT PPX:none Code status: DNR/DNI/comfort measures Discharge Plan: Other (Hospice) Plan to discharge in: 24 Hours - Advance Directives Does patient have a Living Will: No Does patient have a Durable POA for Healthcare: No - Code Status/Comfort Care Code Status Assessed: Yes (DNR/DNI/comfort measures) Critical Care: No Time Spent Managing Pts Care (In Minutes): 55
[2021-03-03] MEDS ORDERED: LORazepam 2 MG/ML VIAL IV PRN (21:03)
[2021-03-03] MEDS ORDERED: ONDANSETRON 4 MG/2 ML VIAL IV PRN (21:03)
[2021-03-03] MEDS ORDERED: MORPHINE 2 MG/ML SYR IV PRN (21:03)
[2021-03-03 22:23] VITALS: BMI 12.5
[2021-03-03 22:54] LABS: Urine Appearance TURBID (Clear); Urine Blood NEGATIVE (Negative); Urine Color Red (Yellow); Urine Glucose TRACE (Negative); Urine Protein 3+ (Negative); Urine Specific Gravity 1.025 (1.005-1.030); Urine pH 8.5 (5.0-7.0)
[2021-03-03 23:00] LABS: Urine Microscopic Reflex ORDER UMIC
[2021-03-03 23:03] LABS: Urine Bilirubin NEGATIVE (Negative)
[2021-03-03 23:20] LABS: Urine Bacteria LOADED /HPF (NONE SEEN); Urine RBC <5 /HPF (NONE SEEN); Urine Triple Phosphate Crystal MANY (NONE SEEN)
--- NOTE | 2021-03-04 08:16 | EKG ---
Test Date: 2021-03-03 Test Time: 15:21:12 Casing Cooker: [place]O MEASUREMENT RESULTS: Intervals: Rate: 76 MS: 128 QRSD: 104 QT: 430 QTc: 483 [place]: P: 75 MS: 128 QRS: -52 T: 70 INTERPRETIVE STATEMENTS: Normal sinus rhythm Left axis deviation Incomplete right bundle branch block Prolonged QT Abnormal ECG Compared to ECG 02/08/2021 16:01:48 Left-axis deviation now present Incomplete right bundle-branch block now present Prolonged QT interval now present Atrial premature complex(es) no longer present Electronically Signed On 03-04-21 08:14:17 CDT by Neil Prater
--- NOTE | 2021-03-04 15:27 | P.PN ---
Subjective Date of Service: 03/04/21 Chief Complaint: Respiratory failure Subjective: No new changes (patient reports he is comfortable this morning, on nasal cannula. again reiterates he does not want any antibiotics. he only wants comfort measures.) Review of Systems is unable to be obtained Physical Examination - Vital Signs Temperature: 96.6 F Blood Pressure: 104/58 Pulse: 82 Respirations: 25 Pulse Ox (%): 82 - Studies Laboratory Data (last 24 hrs) 03/03/21 15:21: PT 18.1 H, INR 1.57 03/03/21 15:21: WBC 24.50 H*, Hgb 10.8 L, Hct 34.4 L, Plt Count 349 03/03/21 15:21: Sodium 140, Potassium 6.4 H*, BUN 46 H, Creatinine 1.91 H, Glucose 165 H, Magnesium 2.2, Total Bilirubin 0.9, AST 7107 H*, ALT 1589 H*, Alkaline Phosphatase 159 H Microbiology Data (last 24 hrs): 03/03/21 15:25 Blood - Blood Blood Culture Gram Stain - Final 03/03/21 15:25 Blood - Blood Blood Culture Gram Stain - Final Assessment & Plan Physician Review Additional Text: Physical exam GEN: cachectic, lethargic HEENT: Normal conjunctiva, sclera anicteric CV: Regular rate and rhythm, no edema Pulm: Nonlabored respiration on 4L NC ABD: Soft, nontender, nondistended Problem List Acute on chronic hypoxic/hypercapnic respiratory failure secondary to COPD with exacerbation complicated with suspected lung cancer with metastasis with multiorgan dysfunction Bacteremia Elevated aminotransferase levels Acute renal failure with hyperkalemia NSTEMI UTI Patient wishes for comfort measures. Patient does not want any IV fluids, IV antibiotics, invasive or noninvasive ventilation or oxygen greater than nasal cannula. Patient does prefer medications for analgesia/anxiolysis. Patient understands that his is expectant, patient reports that he "wants to now". continue comfort measures consult hospice, appears inpatient appropriate Time Spent Managing Pts Care (In Minutes): 35
[2021-03-04 19:14] VITALS: O2SAT 91
[2021-03-04 21:18] VITALS: BP 93/44; TEMP 96.8
--- NOTE | 2021-03-04 22:41 | P.DS ---
Admission Date: 03/03/21 Discharge Date: 03/04/21 Disposition: Discharge Condition: Reason for Admission: Respiratory failure Consultations: none Brief History of Present Illness: 80-year-old male with history of COPD, atrial fibrillation on chronic anticoagulation therapy, chronic respiratory failure, COVID-19 pneumonia, suspected lung cancer with mets who is on hospice at home was found by his hospice nurse to be altered and hypoxic at home, patient reportedly was full code, hospice nurse called EMS and transported him to the emergency department for evaluation. Patient was evaluated in the emergency department and placed on BiPAP for hypoxic/hypercapnic respiratory failure. Patient's mental status quickly improved labs returned which were significant for white blood cell count 24.5 potassium 6.4 BUN 46 creatinine 1.91 GFR 34 glucose 165 ferritin greater than 40,000 AST 7107 ALT 1589 alk phos 159 troponin I 0.57 C-reactive protein 122 procalcitonin 10.8 BNP 16,800 urinalysis with loaded bacteria 3+ leuk esterase. Patient extremely ill. Mental status improved greatly after initiation of BiPAP therapy, patient was alert and oriented x4, initially reported that he was a full code, after further discussion in conjunction with ER provider, ER nurse in description of patient's current clinical condition he reported that he "wanted to go" when asked what he meant patient says that he is ready to and he wanted to now. This was clarified multiple times patient is adamant that he is ready to and does not want any further aggressive medical therapies including IV fluids, IV antibiotics, supplemental oxygen greater than nasal cannula. Patient wishes for DNR/DNI and comfort measures including anxiolytics and analgesics. Order was drafted and signed by myself, ER provider, patient. Case was also discussed with patient's son who understood and was amendable with plan. Will admit for comfort measures and possible transition to hospice tomorrow. Hospital Course: Patient was admitted to the hospital for comfort measures. Patient declined any further interventions or treatments with IV fluids, IV antibiotics, inv asive/noninvasive ventilation or other treatments aside from analgesics/anxiolytics/nasal cannula oxygen therapy. Patient made comfortable throughout the duration of his hospitalization and this evening. May he rest in peace. Vital Signs/Physical Exam: Temp Pulse Resp BP Pulse Ox 96.8 F 79 15 93/44 L 82 L 03/04/21 20:00 03/04/21 20:00 03/04/21 20:00 03/04/21 20:00 03/04/21 15:26 General: Unresponsive HEENT: Other (Pupils fixed, dilated) Neck: Other (No palpable pulses) Laboratory Data at Discharge: WBC 24.50 K/uL (4.3-10.9) H* 03/03/21 15:21 Hgb 10.8 g/dL (13.6-17.9) L 03/03/21 15: Hct 34.4 % (39.6-49.0) L 03/03/21 15: Plt Count 349 K/uL (152-406) 03/03/21 15: PT 18.1 SECONDS (9.5-12.5) H 03/03/21 15: INR 1.57 03/03/21 15:21 Sodium 140 mmol/L (136-145) 03/03/21 15: Potassium 6.4 mmol/L (3.5-5.1) H* 03/03/21 15:21 BUN 46 mg/dL (7-18) H 03/03/21 15:21 Creatinine 1.91 mg/dL (0.55-1.3) H 03/03/21 15:21 Glucose 165 mg/dL (74-106) H 03/03/21 15:21 Magnesium 2.2 mg/dL (1.8-2.4) 03/03/21 15:21 Total Bilirubin 0.9 mg/dL (0.2-1.0) 03/03/21 15:21 AST 7107 U/L (15-37) H* 03/03/21 15:21 ALT 1589 U/L (12-78) H* 03/03/21 15:21 Alkaline Phosphatase 159 U/L (45-117) H 03/03/21 15:21 Home Medications: EPINEPHrine [Primatene Mist] 1 puff IH PRN 12/18/20 Albuterol Neb [Proventil 0.083% Neb Soln] 2.5 mg IH QID #120 amp 02/15/21 Amiodarone HCl [Cordarone*] 200 mg PO DAILY #30 tab 02/15/21 Ascorbic Acid [Vitamin C*] 500 mg PO QID #120 tablet 02/15/21 Benzonatate [Tessalon Perle*] 100 mg PO TID PRN #30 cap 02/15/21 Cholecalciferol (Vitamin D3) [Vitamin D3] 4,000 unit PO DAILY #60 capsule 02/15/21 Fluticasone [Flonase 50MCG Nasal [place]*] 2 sprays JONE BID PRN #1 btl 02/15/21 Nebulizer [Truneb Nebulizer] 1 each MC QID #1 each 02/15/21 Rivaroxaban [Xarelto] 20 mg PO DAILY #30 tablet 02/15/21 Thiamine HCl [Vitamin B-1*] 200 mg PO DAILY #60 tablet 02/15/21 Tiotropium [place] [Spiriva Respimat] 4 gm IH DAILY #30 mist.inhal 02/15/21 Zinc Sulfate [Zinc Sulfate*] 220 mg PO DAILY #30 cap 02/15/21 predniSONE [Prednisone*] 20 mg PO BID #21 tab 02/15/21 Physician Discharge Instructions: Rest in peace Followup: Unknown,U [Primary Care Provider] - Time spent managing pt's care (in minutes): 20
== END 2021-03-04 22:00 | disposition expired | DRG 177 ==
LOC: ER 14:55 → ERHOLD 19:42 → 3RD-ICU 20:07 → 4TH 03-04 01:46
PROVIDERS: ADMIT Hospitalist; ATTEND Hospitalist
DX: U07.1 COVID-19 (principal); J12.82 Pneumonia due to coronavirus disease 2019; J96.22 Acute and chronic respiratory failure with hypercapnia; J96.21 Acute and chronic respiratory failure with hypoxia; I21.4 Non-ST elevation (NSTEMI) myocardial infarction; J44.0 Chronic obstructive pulmonary disease with (acute) lower respiratory infection; J44.1 Chronic obstructive pulmonary disease with (acute) exacerbation; C34.90 Malignant neoplasm of unspecified part of unspecified bronchus or lung; C79.9 Secondary malignant neoplasm of unspecified site; N17.9 Acute kidney failure, unspecified; N39.0 Urinary tract infection, site not specified; R64 Cachexia; Z68.1 Body mass index [BMI] 19.9 or less, adult; R78.81 Bacteremia; E87.5 Hyperkalemia; I48.91 Unspecified atrial fibrillation; R74.01 Elevation of levels of liver transaminase levels; R40.4 Transient alteration of awareness; Z79.01 Long term (current) use of anticoagulants; Z66 Do not resuscitate; Z86.73 Personal history of transient ischemic attack (TIA), and cerebral infarction without residual deficits
CPT/HCPCS: 0240U; 36415; 71045; 71250; 74176; 76705; 80048; 80076; 81003; 81015; 82550; 82728; 82805; 83605; 83735; 83880; 84145; 84484; 85025; 85610; 86140; 87040; 87077; 87086; 87088; 87186; 87205; 93005; 94660; 96372; 99285; J0610; J0696; J1650; J2270; J3010; J3370; J7030